=== PATIENT | male | born 1950 | race Caucasian/White ===

== ENCOUNTER → 2019-07-18 11:08 | Outpatient (BNVA) | payer MEDICARE, OTHER, SELFPAY | PROVIDERS: Family Provider Family Medicine; PCP Family Medicine; Referring Provider Family Medicine; Visit Provider Family Medicine | DX: I10 Essential (primary) hypertension (principal); N40.0 Benign prostatic hyperplasia without lower urinary tract symptoms; R73.9 Hyperglycemia, unspecified; S39.013A Strain of muscle, fascia and tendon of pelvis, initial encounter; X58.XXXA Exposure to other specified factors, initial encounter; Z68.30 Body mass index [BMI] 30.0-30.9, adult; Z71.89 Other specified counseling; X50.0XXA Overexertion from strenuous movement or load, initial encounter; Z12.5 Encounter for screening for malignant neoplasm of prostate | CPT/HCPCS: 80053; 83036; 85025; G0103 ==

== ENCOUNTER 2019-09-20 01:43 | Emergency (ER) | payer MEDICARE, OTHER, SELFPAY ==
[2019-09-20 01:46] VITALS: BP 156/86; PULSE 88; RESP 14; O2SAT 95; BMI 28.7
--- NOTE | 2019-09-20 02:03 | ED_ITS ---
HPI - Back Pain/Injury General: Chief Complaint: Back Pain/Injury Stated Complaint: BACK PAIN Time Seen by Provider: 09/20/19 01:55 Source: patient Mode of arrival: ambulatory Limitations: no limitations History of Present Illness: HPI Narrative: Patient comes in with some severe back pain that started at home this evening. Patient states he has been having some back pain for the last couple months due to assisting his with ADLs. Patient states tonight he had some low back pain that radiating into his right hip and was unable to control the pain at home. Patient took a half a tablet of hydrocodone and had minimal relief from pain. After the ambulance arrived at his home and he has been medicated with fentanyl he has had relief of his discomfort. Patient appears well. Patient appears in no acute distress. Patient denies any fever blood in the stool or any other symptoms MD elicited complaint: back pain Review of Systems General: Reports: 10 or more systems reviewed and unremarkable except in HPI and below Musc: Reports: back pain ON LICENSE OF [facility] ED PFSH: Medical History (Updated 09/20/19 @ 02:03 by TAMRA Jon) Hypertension Social History Smoking and tobacco status: never smoked Alcohol intake: never Physical Exam Const: COMMON NORMALS: no acute distress and patient oriented x3 GENERAL APPEARANCE: cooperative HENMT: COMMON NORMALS: normocephalic and Normal external nose present HEAD & SCALP: normal to inspection and normocephalic NOSE: Normal external nose present MOUTH: Normal oral and palatal mucosa present Eye: GENERAL EYE: appearance normal, both eyes and all related structures Neck/C-Spine: COMMON NORMALS: full ROM Chest: COMMONS NORMALS: normal inspection of the chest Resp: COMMON NORMALS: normal respiratory effort EFFORT & INSPECTION: Yes a ble to speak in complete sentences Cardio: COMMON NORMALS: regular rate and regular rhythm RATE: regular rate RHYTHM: regular rhythm GI: COMMON NORMALS: non-tender : COMMON NORMALS: Yes no CVA tenderness BLADDER/KIDNEY EXAM: Yes no CVA tenderness Back/Pelvis: COMMON NORMALS: no CVA tenderness and thoracic and lumbar spine normal to inspection LUMBAR SPINE/LOWER BACK: Yes paraspinal muscle tenderness Lumbar paraspinal muscle tenderness: right and Yes straight leg raise negative bilaterally Extremity: COMMON NORMALS: normal to inspection Neuro: COMMON NORMALS: patient oriented x3 and moves all extremities Psych: COMMON NORMALS: mental status grossly normal and cooperative Skin: COMMON NORMALS: no rashes or lesions noted GENERAL SKIN EXAM: no rashes or lesions noted Course Vital Signs: Vital signs: Vital Signs Pulse Rate 88 09/20/19 01:46 Respiratory Rate 14 09/20/19 01:46 Blood Pressure 156/86 09/20/19 01:46 Pulse Oximetry 95 09/20/19 01:46 MDM - Back Pain/Injury MDM Narrative: Medical decision making narrative: 69-year-old male patient comes in with low back pain radiating into his right buttocks. Patient received fentanyl in route to the ER and had had significant relief of pain. On exam patient had no vertebral point tenderness. Patient did have muscle spasm in the right lower back and some muscle tenderness. Vital signs are normal. Differential diagnosis includes but not limited to intervertebral disc disease, facet arthropathy, muscle spasm, sciatica. Reviewed exam with patient recommended treatment for sciatica. Patient reported understanding of care plan and need for follow-up or return to the ER for new concerns. Discharge Plan Discharge Patient Disposition: Home Clinical Impression: Sciatica Qualifiers: Laterality: right Qualified Code(s): M54.31 - Sciatica, right side Condition: Stable Prescriptions: New tizanidine 4 mg tablet 4 mg PO Q8H PRN (Reason: muscle spasticity) Qty: 14 RF: 0 diclofenac sodium 75 mg tablet,delayed release (DR/EC) 75 mg PO BID Qty: 20 RF: 0 No Action lisinopril 20 mg tablet 20 mg PO DAILY 90 Days Qty: 90 RF: 3 Discharge Orders: Discharge Order (Routine); Ordered 09/20/19 Ordered By: Audi Guerra Referrals: Sandra Abla MD [Primary Care Provider] - Discharge Diet: Usual diet Activity Restrictions/Additional Instructions: Drink plenty of water. Activity as tolerated. Gentle range of motion and stretching exercises. Follow-up with primary care or healthcare network consultant for further treatment. Return to the emergency department for new concerns. Coding Level of Care Code ED Television Announcer for Jordan Lucero
[2019-09-20] MEDS: ketorolac 30 mg/mL INJ 15 MG IVP (02:04)
[2019-09-20] MEDS: orphenadrine 30 mg/mL Inj 2 mL 60 MG IVP (02:06)
[2019-09-20 02:08] VITALS: BP 138/90; PULSE 68; RESP 16; O2SAT 95
== END 2019-09-20 02:26 | disposition home or self-care (01) ==
PROVIDERS: Emergency Provider Nurse Practitioner Family; PCP Family Medicine
DX: M54.31 Sciatica, right side (principal); I10 Essential (primary) hypertension
CPT/HCPCS: 12345; 96374; 96375; 99282; 99283; J1885; J2360

== ENCOUNTER → 2020-02-04 14:37 | Outpatient (BNVA) | payer MEDICARE, OTHER, SELFPAY | PROVIDERS: PCP Family Medicine; Visit Provider Family Medicine | DX: I10 Essential (primary) hypertension (principal); R97.20 Elevated prostate specific antigen [PSA]; F51.02 Adjustment insomnia; N52.9 Male erectile dysfunction, unspecified | CPT/HCPCS: 80048; G0103 ==

== ENCOUNTER 2020-02-20 21:00 | Inpatient (IN) | payer MEDICARE, OTHER, SELFPAY ==
--- NOTE | 2020-02-20 21:09 | ED_ITS ---
Documented by User: Wagner Bonilla MD 02/23/20 20:52 HPI - Abdominal Pain General: Chief Complaint: Abdominal Pain Stated Complaint: abd pain Time Seen by Provider: 02/20/20 21:04 History of Present Illness: HPI narrative: The patient is a 69-year-old male who comes to the ER complaining of upper abdominal pain for the past 5 days. It has come and gone however now it is constant and severe. He denies any abdominal surgeries or medical problems. Denies alcohol intake or gallbladder stones or pancreatitis history. He says about a week ago he was started on Lasix for peripheral edema which has improved however he has not had a normal bowel movement since. This morning at 2 AM he had a liquidy bowel movement. He does not feel like he has to defecate. denies urinary problems MD elicited complaint: abdominal pain Pertinent past history: none Pain Consistency: constant Location: Epigastric Severity: severe Quality: sharp Exacerbating factors: nothing Relieving factors: nothing Associated Symptoms: Reports no associated symptoms and change in bowel habits; Denies nausea and vomiting Review of Systems General: Reports: 10 or more systems reviewed and unremarkable except in HPI and below Const: Denies: fatigue Eyes: Denies: change in vision, blurry vision or eye redness ENMT: Denies: throat pain, swelling of lips/tongue, ear or mastoid pain or nasal congestion Card: Denies: chest pain, palpitations, irregular heart rhythm, edema, dyspnea on exertion or orthopnea Resp: Denies: dyspnea, productive cough or non-productive cough GI: Reports: abdominal pain and change in bowel habits; Denies: nausea or vomiting : Denies: flank pain, urinary frequency or urinary urgency Musc: Denies: neck pain, back pain, extremity pain, joint pain, joint redness, limited range of motion or muscle weakness Skin/Breast: Denies: rash, pruritus, erythema, skin pain or skin tenderness Neuro: Denies: headache(s), numbness in extremities, weakness in extremities, sensory changes, difficulty walking, dizziness, confusion or Slurred speech present Psych: Denies: anxiety or depression Endo: Denies: polyuria All/Imm: Denies: urticaria, throat swelling or tongue swelling PFSH ED PFSH: Medical History Arthritis History of cataract History of stroke Hypertension Incomplete tear of left rotator cuff Surgical History History of arthroscopic surgery of shoulder History of femoral hernia repair History of vasectomy Family History Other No significant family history Social History (Updated 02/21/20 @ 02:31 by Benny Damon MD) Smoking and tobacco status: never smoked Alcohol intake: never Substance/Drug Use: never Lives independently: Yes Marital status: Physical Exam Const: COMMON NORMALS: no acute distress, average body habitus, patient oriented x3, no limitations, healthy appearing, alert and well nourished GENERAL APPEARANCE: cooperative, comfortable, well kempt and well developed ORIENTATION/CONSCIOUSNESS: Yes awake, Yes oriented to person, Yes oriented to place and Yes oriented to time HENMT: COMMON NORMALS: normocephalic, external ears normal and Normal external nose present HEAD & SCALP: normal to inspection and normocephalic NOSE: Normal external nose present EXTERNAL EAR: Yes external ears normal MOUTH: Normal oral and palatal mucosa present THROAT: posterior oropharynx normal Eye: COMMON NORMALS: Equal, round and reactive pupils present and EOMs intact bilaterally GENERAL EYE: appearance normal, both eyes and all related structures PUPIL: Yes Equal, round and reactive pupils present Neck/C-Spine: COMMON NORMALS: full ROM, no lymphadenopathy, no meningeal signs and no JVD GENERAL: Yes normal visual inspection Lymph: LYMPHATIC: no lymphadenopathy noted Chest: COMMONS NORMALS: normal inspection of the chest and normal palpation of entire chest wall Resp: COMMON NORMALS: normal respiratory effort, No retractions, No use of accessory muscles, clear to auscultation bilaterally and percussion normal EFFORT & INSPECTION: Yes able to speak in complete sentences AUSCULTATION: clear to auscultation bilaterally PERCUSSION: percussion normal Cardio: COMMON NORMALS: no JVD, regular rate, regular rhythm, S1 normal heart sound present, S2 normal heart sound present and Peripheral pulses 2+ throughout RATE: regular rate RHYTHM: regular rhythm HEART SOUNDS: S1 normal heart sound present and S2 normal heart sound present PERIPHERAL PULSES: Peripheral pulses 2+ throughout GI: COMMON NORMALS: no masses INSPECTION: Yes normal to inspection OTHER: Severe epigastric abdominal tenderness. No rebound tenderness. Belly soft. GI image (male): 1. Severe abdominal tenderness : COMMON NORMALS: Yes no CVA tenderness BLADDER/KIDNEY EXAM: Yes no CVA tenderness Back/Pelvis: COMMON NORMALS: no CVA tenderness, thoracic and lumbar spine normal to inspection, no thoracic nor lumbar tenderness and thoraco-lumbar ROM normal Extremity: COMMON NORMALS: normal to inspection, full ROM, capillary refill normal, no joint enlargement and no pedal edema GENERAL: Yes normal exam except as noted Neuro: COMMON NORMALS: patient oriented x3, CN's II-XII intact bilaterally, moves all extremities, no focal motor deficits, no sensory deficits noted and gait normal SENSORIUM/ORIENTATION: Yes alert, Yes oriented to person, Yes oriented to place and Yes oriented to time MENINGEAL SIGNS: Yes no meningeal signs Psych: COMMON NORMALS: mental status grossly normal, Normal thought process present, cooperative, normal affect and speech normal APPEARANCE: Yes well kempt ATTITUDE: Yes calm SPEECH: Yes normal speech THOUGHT PROCESS: Normal thought process present Skin: COMMON NORMALS: no rashes or lesions noted GENERAL SKIN EXAM: no rashes or lesions noted Course Vital Signs: Vital signs: Vital Signs Temperature 98.5 F 02/23/20 11:33 Pulse Rate 73 02/23/20 11:33 Respiratory Rate 18 02/23/20 11:33 Blood Pressure 129/83 02/23/20 11:33 Pulse Oximetry 91 02/23/20 11:33 MDM - Abdominal Pain Lab Data: Labs: Lab Results 02/20/20 02/20/20 02/20/20 Range/Units 21:06 21:06 21:37 WBC 14.9 H (4.0-10.0) 10^3/ uL RBC 5.14 (4.1-5.3) 10^6/u L Hgb 16.7 H (11.7-16.6) g/dL Hct 50.0 (42.0-52.0) % MCV 97.3 H (80-94) fL MCH 32.5 (28.0-34.0) pg MCHC 33.4 (30.0-36.0) g/dL RDW 12.9 (12.1-15.1) % Plt Count 197 (130-400) 10^3/c mm MPV 10.4 (7.4-10.4) fL Neut % (Auto) 89.0 % Lymph % (Auto) 5.7 % [place] % (Auto) 3.9 % Eos % (Auto) 0.5 % Baso % (Auto) 0.3 % Neut # (Auto) 13.23 H (1.8-7.7) 10^3/u L Lymph # (Auto) 0.9 (0.8-4.8) 10^3/u L [place] # (Auto) 0.6 (0.2-0.9) 10^3/u L Eos # (Auto) 0.1 (0.0-0.8) 10^3/u L Baso # (Auto) 0.1 (0.0-0.1) 10^3/u L Nucleated RBC % (a uto) 0 % Nucleated RBCs # 0.0 /100WBC Sodium 137 (136-145) mmol/L Potassium 3.9 (3.5-5.1) mmol/L Chloride 99 (98-107) mmol/L Carbon Dioxide 29 (22-29) mmol/L Anion Gap 12.9 (5-19) BUN 30 H (8-23) mg/dL Creatinine 1.7 H (0.7-1.2) mg/dL GFR Calculation 40.0 L (90-130) mL/min Glucose 116 H (65-115) mg/dL Calculated Osmolal ity 291 (285-295) mOsm/k g Lactate 1.1 (0.5-2.2) mmol/L Calcium 10.1 (8.5-10.5) mg/dL Total Bilirubin 2.1 H (0.15-1.2) mg/dL AST 24 (0-40) U/L ALT 27 (0-41) U/L Alkaline Phosphata se 108 (40-130) IU/L NT-Pro-B Natriuret Pep 235 H (0-125) pg/mL Total Protein 7.3 (6.6-8.7) g/dL Albumin 3.9 (3.5-5.2) g/dL Globulin 3.4 (1.3-4.6) g/dL Lipase 13 (13-60) U/L Urine Color (Yellow) Urine Appearance (CLEAR) Urine pH (5-7) Ur Specific Gravit y (1.005-1.030) Urine Protein (Negative) Urine Glucose (UA) (Normal) Urine Ketones (Negative) Urine Blood (Negative) Urine Nitrate (Negative) Urine Bilirubin (Negative) Urine Urobilinogen (Negative) mg/dL Ur Leukocyte Arlene ase (Negative) Urine RBC (0-2) /hpf Urine WBC (0-5) /hpf Ur Squamous Epith Cells (0-5) /hpf Amorphous Sediment Urine Bacteria (NONE) /hpf Urine Mucus /hpf Ethyl Alcohol < 10 (0-10) mg/dL 02/20/20 02/21/20 Range/Units 21:37 02:36 WBC (4.0-10.0) 10^3/ uL RBC (4.1-5.3) 10^6/u L Hgb (11.7-16.6) g/dL Hct (42.0-52.0) % MCV (80-94) fL MCH (28.0-34.0) pg MCHC (30.0-36.0) g/dL RDW (12.1-15.1) % Plt Count (130-400) 10^3/c mm MPV (7.4-10.4) fL Neut % (Auto) % Lymph % (Auto) % [place] % (Auto) % Eos % (Auto) % Baso % (Auto) % Neut # (Auto) (1.8-7.7) 10^3/u L Lymph # (Auto) (0.8-4.8) 10^3/u L [place] # (Auto) (0.2-0.9) 10^3/u L Eos # (Auto) (0.0-0.8) 10^3/u L Baso # (Auto) (0.0-0.1) 10^3/u L Nucleated RBC % (a uto) % Nucleated RBCs # /100WBC Sodium (136-145) mmol/L Potassium (3.5-5.1) mmol/L Chloride (98-107) mmol/L Carbon Dioxide (22-29) mmol/L Anion Gap (5-19) BUN (8-23) mg/dL Creatinine (0.7-1.2) mg/dL GFR Calculation (90-130) mL/min Glucose (65-115) mg/dL Calculated Osmolal ity (285-295) mOsm/k g Lactate 1.3 (0.5-2.2) mmol/L Calcium (8.5-10.5) mg/dL Total Bilirubin (0.15-1.2) mg/dL AST (0-40) U/L ALT (0-41) U/L Alkaline Phosphata se (40-130) IU/L NT-Pro-B Natriuret Pep (0-125) pg/mL Total Protein (6.6-8.7) g/dL Albumin (3.5-5.2) g/dL Globulin (1.3-4.6) g/dL Lipase (13-60) U/L Urine Color Dark yellow (Yellow) Urine Appearance Hazy A (CLEAR) Urine pH 5.0 (5-7) Ur Specific Gravit y 1.015 (1.005-1.030) Urine Protein 1+ H (Negative) Urine Glucose (UA) Norm (Normal) Urine Ketones Negative (Negative) Urine Blood Neg (Negative) Urine Nitrate Negative (Negative) Urine Bilirubin Neg (Negative) Urine Urobilinogen Norm (Negative) mg/dL Ur Leukocyte Arlene ase 1+ H (Negative) Urine RBC None (0-2) /hpf Urine WBC 55-80 H (0-5) /hpf Ur Squamous Epith Cells 0-4 H (0-5) /hpf Amorphous Sediment Not Reportable Urine Bacteria 2+ H (NONE) /hpf Urine Mucus Trace /hpf Ethyl Alcohol (0-10) mg/dL Discharge Plan Discharge Patient Disposition: Admitted As Inpatient Admit Provider: Benny Damon Clinical Impression: Small bowel obstruction, Cystitis Condition: Stable Discharge Diet: Low Salt Discharge Activity: Resume usual activity Coding Level of Care Code ED [employer] for Chg Fwd Exam Comprehensive Documented by User: Claudia Sanchez MD 02/21/20 01:05 HPI - Abdominal Pain General: Chief Complaint: Abdominal Pain Stated Complaint: abd pain Time Seen by Provider: 02/20/20 21:04 [facility] ED PFSH: Medical History Arthritis History of cataract History of stroke Hypertension Incomplete tear of left rotator cuff Surgical History History of arthroscopic surgery of shoulder History of femoral hernia repair History of vasectomy Family History Other No significant family history Social History (Updated 02/21/20 @ 02:31 by Benny Damon MD) Smoking and tobacco status: never smoked Alcohol intake: never Substance/Drug Use: never Lives independently: Yes Marital status: Physical Exam GI: GI image (male): 1. Severe abdominal tenderness Course Vital Signs: Vital signs: Vital Signs Temperature 98.5 F 02/23/20 11:33 Pulse Rate 73 02/23/20 11:33 Respiratory Rate 18 02/23/20 11:33 Blood Pressure 129/83 02/23/20 11:33 Pulse Oximetry 91 02/23/20 11:33 MDM - Abdominal Pain MDM Narrative: Medical decision making narrative: Patient presents here with a partial small bowel obstruction along with a urinary tract infection. I spoke to the hospitalist will admit. Will place an NG tube and patient given IV antibiotics here. Patient is not septic and blood pressures been stable. Lab Data: Labs: Lab Results 02/20/20 02/20/20 02/20/20 Range/Units 21:06 21:06 21:37 WBC 14.9 H (4.0-10.0) 10^3/ uL RBC 5.14 (4.1-5.3) 10^6/u L Hgb 16.7 H (11.7-16.6) g/dL Hct 50.0 (42.0-52.0) % MCV 97.3 H (80-94) fL MCH 32.5 (28.0-34.0) pg MCHC 33.4 (30.0-36.0) g/dL RDW 12.9 (12.1-15.1) % Plt Count 197 (130-400) 10^3/c mm MPV 10.4 (7.4-10.4) fL Neut % (Auto) 89.0 % Lymph % (Auto) 5.7 % [place] % (Auto) 3.9 % Eos % (Auto) 0.5 % Baso % (Auto) 0.3 % Neut # (Auto) 13.23 H (1.8-7.7) 10^3/u L Lymph # (Auto) 0.9 (0.8-4.8) 10^3/u L [place] # (Auto) 0.6 (0.2-0.9) 10^3/u L Eos # (Auto) 0.1 (0.0-0.8) 10^3/u L Baso # (Auto) 0.1 (0.0-0.1) 10^3/u L Nucleated RBC % (a uto) 0 % Nucleated RBCs # 0.0 /100WBC Sodium 137 (136-145) mmol/L Potassium 3.9 (3.5-5.1) mmol/L Chloride 99 (98-107) mmol/L Carbon Dioxide 29 (22-29) mmol/L Anion Gap 12.9 (5-19) BUN 30 H (8-23) mg/dL Creatinine 1.7 H (0.7-1.2) mg/dL GFR Calculation 40.0 L (90-130) mL/min Glucose 116 H (65-115) mg/dL Calculated Osmolal ity 291 (285-295) mOsm/k g Lactate 1.1 (0.5-2.2) mmol/L Calcium 10.1 (8.5-10.5) mg/dL Total Bilirubin 2.1 H (0.15-1.2) mg/dL AST 24 (0-40) U/L ALT 27 (0-41) U/L Alkaline Phosphata se 108 (40-130) IU/L NT-Pro-B Natriuret Pep 235 H (0-125) pg/mL Total Protein 7.3 (6.6-8.7) g/dL Albumin 3.9 (3.5-5.2) g/dL Globulin 3.4 (1.3-4.6) g/dL Lipase 13 (13-60) U/L Urine Color (Yellow) Urine Appearance (CLEAR) Urine pH (5-7) Ur Specific Gravit y (1.005-1.030) Urine Protein (Negative) Urine Glucose (UA) (Normal) Urine Ketones (Negative) Urine Blood (Negative) Urine Nitrate (Negative) Urine Bilirubin (Negative) Urine Urobilinogen (Negative) mg/dL Ur Leukocyte Arlene ase (Negative) Urine RBC (0-2) /hpf Urine WBC (0-5) /hpf Ur Squamous Epith Cells (0-5) /hpf Amorphous Sediment Urine Bacteria (NONE) /hpf Urine Mucus /hpf Ethyl Alcohol < 10 (0-10) mg/dL 02/20/20 02/21/20 Range/Units 21:37 02:36 WBC (4.0-10.0) 10^3/ uL RBC (4.1-5.3) 10^6/u L Hgb (11.7-16.6) g/dL Hct (42.0-52.0) % MCV (80-94) fL MCH (28.0-34.0) pg MCHC (30.0-36.0) g/dL RDW (12.1-15.1) % Plt Count (130-400) 10^3/c mm MPV (7.4-10.4) fL Neut % (Auto) % Lymph % (Auto) % [place] % (Auto) % Eos % (Auto) % Baso % (Auto) % Neut # (Auto) (1.8-7.7) 10^3/u L Lymph # (Auto) (0.8-4.8) 10^3/u L [place] # (Auto) (0.2-0.9) 10^3/u L Eos # (Auto) (0.0-0.8) 10^3/u L Baso # (Auto) (0.0-0.1) 10^3/u L Nucleated RBC % (a uto) % Nucleated RBCs # /100WBC Sodium (136-145) mmol/L Potassium (3.5-5.1) mmol/L Chloride (98-107) mmol/L Carbon Dioxide (22-29) mmol/L Anion Gap (5-19) BUN (8-23) mg/dL Creatinine (0.7-1.2) mg/dL GFR Calculation (90-130) mL/min Glucose (65-115) mg/dL Calculated Osmolal ity (285-295) mOsm/k g Lactate 1.3 (0.5-2.2) mmol/L Calcium (8.5-10.5) mg/dL Total Bilirubin (0.15-1.2) mg/dL AST (0-40) U/L ALT (0-41) U/L Alkaline Phosphata se (40-130) IU/L NT-Pro-B Natriuret Pep (0-125) pg/mL Total Protein (6.6-8.7) g/dL Albumin (3.5-5.2) g/dL Globulin (1.3-4.6) g/dL Lipase (13-60) U/L Urine Color Dark yellow (Yellow) Urine Appearance Hazy A (CLEAR) Urine pH 5.0 (5-7) Ur Specific Gravit y 1.015 (1.005-1.030) Urine Protein 1+ H (Negative) Urine Glucose (UA) Norm (Normal) Urine Ketones Negative (Negative) Urine Blood Neg (Negative) Urine Nitrate Negative (Negative) Urine Bilirubin Neg (Negative) Urine Urobilinogen Norm (Negative) mg/dL Ur Leukocyte Arlene ase 1+ H (Negative) Urine RBC None (0-2) /hpf Urine WBC 55-80 H (0-5) /hpf Ur Squamous Epith Cells 0-4 H (0-5) /hpf Amorphous Sediment Not Reportable Urine Bacteria 2+ H (NONE) /hpf Urine Mucus Trace /hpf Ethyl Alcohol (0-10) mg/dL Imaging Data ^: CT Abd/Pel: Attestation: I personally reviewed and interpreted this imaging study as follows: Radiologist's impression: [address] [address] [address] Scan Report Signed Patient: Elodia Hagen Unit #: [id number] : 1950 Age/Sex: 69 / M ADM Date: 02/20/20 Loc: ER Room/Bed: Attending Dr: Ordering Provider/Ordering MD: Claudia Sanchez MD Date of Service: 02/20/20 Procedure(s): CT abdomen pelvis w con* [id number] Accession Number(s): [id number] Report Number: [id number] PROCEDURE INFORMATION: Exam: CT Abdomen And Pelvis With Contrast Exam date and time: 02/20/2020 11:38 PM Age: 69 years old Clinical indication: Abdominal pain; Generalized; Prior surgery; Surgery type: Hernia; Patient HX: Diffuse abd pain x 3 days TECHNIQUE: Imaging protocol: Computed tomography of the abdomen and pelvis with intravenous contrast. Radiation optimization: All CT scans at this facility use at least one of these dose optimization techniques: automated exposure control; mA and/or kV adjustment per patient size (includes targeted exams where dose is matched to clinical indication); or iterative reconstruction. Contrast material: VISI 320; Contrast volume: 95 ml; Contrast route: INTRAVENOUS (IV); COMPARISON: No relevant prior studies available. RADIATION DOSE METRICS: Total DLP (mGy-cm): 725.54 FINDINGS: Lungs: There is some partial atelectasis at the lung bases. Mediastinal space: There is fluid in the distal esophagus representing some gastroesophageal reflux. Liver: There is no focal abnormality within the liver. Gallbladder and bile ducts: Normal. No calcified stones. No ductal dilation. Pancreas: The pancreas is normal. Spleen: The spleen is normal. Adrenal glands: The adrenal glands are normal. Kidneys and ureters: There are multiple right renal collecting system calcifications. There is a very large extrarenal pelvis on the left. This suggests possibility of left UPJ stenosis. Stomach and bowel: There is fluid distention of the fundus of the stomach. The body and antrum of the stomach are non distended. Findings could represent stricture or sclerosis of the distal stomach. Further evaluation such as with upper GI series is suggested for further evaluation when the patient's condition permits. There is diverticulosis of the distal colon but no evidence of diverticulitis. There is moderate fluid distention of small bowel loops throughout the upper mid abdomen fluid is seen throughout the distal bowel as well and the findings could represent some nonspecific enteritis. The distal bowel is less dilated than the proximal bowel suggesting some partial obstruction although exact point of transition is not identified. Appendix: Not identified Intraperitoneal space: Unremarkable. No free air. No significant fluid collection. Vasculature: Unremarkable. No abdominal aortic aneurysm. Lymph nodes: Unremarkable. No enlarged lymph nodes. Urinary bladder: There is moderate thickening of the urinary bladder wall which could represent urinary tract infection, or muscular hypertrophy from chronic outlet obstruction. Reproductive: Unremarkable as visualized. Bones/joints: There is narrowing of the L5-S1 disc space with mild grade 1 anterolisthesis and bilateral L5 spondylolysis. There is mild chronic appearing wedging at T12. Soft tissues: Unremarkable. CT/CT abdomen pelvis w con* [id number] IMPRESSION: 1. Findings worrisome for partial small bowel obstruction. 2. Nonspecific enteritis. 3. Abnormal appearance of the distal stomach. Further evaluation is suggested 4. Right nephrolithiasis. 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 Radiation Dose CTDIVOL = (mGy): DLP = 725.54 (mGy-cm) Discharge Plan Discharge Patient Disposition: Admitted As Inpatient Admit Provider: Benny Damon Clinical Impression: Small bowel obstruction, Cystitis Condition: Stable Discharge Diet: Low Salt Discharge Activity: Resume usual activity Coding Level of Care Code ED [employer] for Chg Fwd Exam Comprehensive
[2020-02-20 21:10] VITALS: BP 104/71; PULSE 87; RESP 18; TEMP 36.8; O2SAT 94; BMI 29.2
[2020-02-20 21:29] LABS: Basophils # 0.1 10^3/uL (0.0-0.1); Basophils % 0.3 %; Eosinophils # 0.1 10^3/uL (0.0-0.8); Eosinophils % 0.5 %; Hemoglobin 16.7 g/dL (11.7-16.6); Lymphocytes # 0.9 10^3/uL (0.8-4.8); Lymphocytes % 5.7 %; Mean Corpuscular HGB Conc 33.4 g/dL (30.0-36.0); Mean Corpuscular Hemoglobin 32.5 pg (28.0-34.0); Mean Corpuscular Volume 97.3 fL (80-94); Mean Platelet Volume 10.4 fL (7.4-10.4); Monocytes # 0.6 10^3/uL (0.2-0.9); Monocytes % 3.9 %; Neutrophils # 13.23 10^3/uL (1.8-7.7); Nucleated Red Blood Cells % 0 %; Platelet Count 197 10^3/cmm (130-400); Red Blood Count 5.14 10^6/uL (4.1-5.3); Red Cell Distribution Width 12.9 % (12.1-15.1); White Blood Count 14.9 10^3/uL (4.0-10.0)
[2020-02-20] MEDS: sodium chloride 0.9% 500 ML IV ×2 (21:38→23:57)
[2020-02-20 21:40] VITALS: BP 104/71; PULSE 88; RESP 12; O2SAT 93
[2020-02-20 21:52] LABS: Alanine Aminotransferase 27 U/L (0-41); Albumin Level 3.9 g/dL (3.5-5.2); Alkaline Phosphatase 108 IU/L (40-130); Anion Gap 12.9 (5-19); Aspartate Amino Transferase 24 U/L (0-40); Blood Urea Nitrogen 30 mg/dL (8-23); Calcium 10.1 mg/dL (8.5-10.5); Carbon Dioxide 29 mmol/L (22-29); Chloride 99 mmol/L (98-107); Globulin 3.4 g/dL (1.3-4.6); Glucose 116 mg/dL (65-115); Lipase 13 U/L (13-60); NT Pro B Type Natriuretic Pept 235 pg/mL (0-125); Osmolality Calculated 291 mOsm/kg (285-295); Potassium 3.9 mmol/L (3.5-5.1); Sodium 137 mmol/L (136-145); Total Bilirubin 2.1 mg/dL (0.15-1.2); Total Protein 7.3 g/dL (6.6-8.7)
[2020-02-20 21:55] LABS: Alcohol Level < 10 mg/dL (0-10)
[2020-02-20 22:23] LABS: Lactate (Lactic Acid level) 1.1 mmol/L (0.5-2.2)
[2020-02-20 23:19] LABS: Specific Gravity, Urine 1.015 (1.005-1.030); Urine Appearance Hazy (CLEAR); Urine Color Dark Yellow (Yellow)
[2020-02-20 23:20] LABS: Add Urine Microscopic? YES; Bilirubin Urine Neg (Negative); Blood Urine Neg (Negative); Glucose Urine UA Norm (Normal); Ketones Urine Negative (Negative); Leukocyte Esterase Urine 1+ (Negative); Nitrate Urine Negative (Negative); Protein Urine 1+ (Negative); Squamous Epithelial Cell Urine 0-4 /hpf (0-5); Urobilinogen Urine Norm (Negative); WBC Urine 55-80 /hpf (0-5)
[2020-02-20 23:21] LABS: Add Urine Culture? Yes; Bacteria Urine 2+ /hpf; Mucus Urine TRACE /hpf
[2020-02-20 23:30] VITALS: BP 92/62; PULSE 75; RESP 12; O2SAT 95
--- NOTE | 2020-02-20 23:36 | CTR_ITS ---
PROCEDURE INFORMATION: Exam: CT Abdomen And Pelvis With Contrast Exam date and time: 02/20/2020 11:38 PM Age: 69 years old Clinical indication: Abdominal pain; Generalized; Prior surgery; Surgery type: Hernia; Patient HX: Diffuse abd pain x 3 days TECHNIQUE: Imaging protocol: Computed tomography of the abdomen and pelvis with intravenous contrast. Radiation optimization: All CT scans at this facility use at least one of these dose optimization techniques: automated exposure control; mA and/or kV adjustment per patient size (includes targeted exams where dose is matched to clinical indication); or iterative reconstruction. Contrast material: VISI 320; Contrast volume: 95 ml; Contrast route: INTRAVENOUS (IV); COMPARISON: No relevant prior studies available. RADIATION DOSE METRICS: Total DLP (mGy-cm): 725.54 FINDINGS: Lungs: There is some partial atelectasis at the lung bases. Mediastinal space: There is fluid in the distal esophagus representing some gastroesophageal reflux. Liver: There is no focal abnormality within the liver. Gallbladder and bile ducts: Normal. No calcified stones. No ductal dilation. Pancreas: The pancreas is normal. Spleen: The spleen is normal. Adrenal glands: The adrenal glands are normal. Kidneys and ureters: There are multiple right renal collecting system calcifications. There is a very large extrarenal pelvis on the left. This suggests possibility of left UPJ stenosis. Stomach and bowel: There is fluid distention of the fundus of the stomach. The body and antrum of the stomach are non distended. Findings could represent stricture or sclerosis of the distal stomach. Further evaluation such as with upper GI series is suggested for further evaluation when the patient's condition permits. There is diverticulosis of the distal colon but no evidence of diverticulitis. There is moderate fluid distention of small bowel loops throughout the upper mid abdomen fluid is seen throughout the distal bowel as well and the findings could represent some nonspecific enteritis. The distal bowel is less dilated than the proximal bowel suggesting some partial obstruction although exact point of transition is not identified. Appendix: Not identified Intraperitoneal space: Unremarkable. No free air. No significant fluid collection. Vasculature: Unremarkable. No abdominal aortic aneurysm. Lymph nodes: Unremarkable. No enlarged lymph nodes. Urinary bladder: There is moderate thickening of the urinary bladder wall which could represent urinary tract infection, or muscular hypertrophy from chronic outlet obstruction. Reproductive: Unremarkable as visualized. Bones/joints: There is narrowing of the L5-S1 disc space with mild grade 1 anterolisthesis and bilateral L5 spondylolysis. There is mild chronic appearing wedging at T12. Soft tissues: Unremarkable. CT/CT abdomen pelvis w con* [id number] IMPRESSION: 1. Findings worrisome for partial small bowel obstruction. 2. Nonspecific enteritis. 3. Abnormal appearance of the distal stomach. Further evaluation is suggested 4. Right nephrolithiasis. 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 Radiation Dose CTDIVOL = (mGy): DLP = 725.54 (mGy-cm)
[2020-02-21] VITALS (10 sets, daily range): BP systolic 97–136; BP diastolic 63–87; PULSE 69–94; RESP 12–24; TEMP 36.6–37.8; O2SAT 91–94
[2020-02-21] MEDS: piperacillin-tazobactam 3.375 GM in sodium chloride 0.9% (plus) 50 ML IV
[2020-02-21] MEDS: iodixanol 320 mg/mL 100mL Btl IV (00:08)
[2020-02-21] MEDS: LORazepam 2 mg/mL INJ 1 mL 1 MG IVP (01:29)
--- NOTE | 2020-02-21 02:26 | XR_ITS ---
WS: [id number] PORTABLE CHEST HISTORY: ng tube placement COMPARISON: 02/16/2008 Nasogastric tube is present with the tip extending into the upper abdomen. The distal extent is not i ncluded on this series. Bilateral lower lobe opacifications, LEFT greater than RIGHT. Probably due to atelectasis. Developing pneumonia on the LEFT should be considered clinically. No pleural effusion or pneumothorax. Cardiac size: Mildly enlarged cardiac silhouette. Mediastinum/Aorta: Normal mediastinum. No osseous abnormality seen. XR/XR chest 1V portable [id number] IMPRESSION: 1. Bilateral lower lobe opacifications most consistent with atelectasis. 2. Nasogastric tube noted with tip extending into the upper abdomen.
--- NOTE | 2020-02-21 02:28 | P.HP_ITS ---
Providers/Chief Complaint Admitting Physician: Benny Damon Primary Care Provider: Sandra Alba MD Chief Complaint: abd pain History of Present Illness Very pleasant 69-year-old gentleman with history of hypertension, generalized aches and pains for which he takes ibuprofen, history of CVA for which he takes 81 mg aspirin presented to ER with complaints of 5 days of abdominal pain. He says that he was having some lower extremity swelling, and also for his hypertension his primary care doctor prescribed a diuretic. He feels that that had dried him up somewhat and he became constipated. He was passing gas, but was also belching quite a bit. Lost his appetite. CT abdomen pelvis in ER with findings worrisome for partial small bowel obstruction. Nonspecific enteritis. With abnormal appearance of distal stomach, with recommendation for further evaluation. Right nephrolithiasis. Probable left UPJ stenosis. UA with positive leukocyte esterase, 55-80 WBC. 2+ bacteria. Leukocytosis 14.9, afebrile, without tachycardia or other signs to suggest sepsis. Creatinine 1.7 with normal baseline. BUN 30. T bili 2.1. BNP 235. Lipase normal. In ER he notes has had several bowel movements. Reports he is feeling little bit better. Currently still pain in the upper abdomen 06/23. Review of Systems Const: Denies: fever(s), chills, body aches or malaise Eyes: Denies: change in vision or eye redness ENMT: Denies: throat pain, oral sores or ear or mastoid pain Card: Denies: chest pain, edema (resolved), pre-syncope or dyspnea on exertion Resp: Denies: dyspnea, productive cough, change in phlegm color or hemoptysis GI: Reports: abdominal pain and nausea; Denies: vomiting, hematochezia or melena : Denies: flank pain, difficulty urinating, urinary frequency or hematuria Musc: Denies: back pain, joint swelling or joint redness Skin/Breast: Denies: rash, sores or new lesions Neuro: Denies: headache(s), numbness in extremities, weakness in extremities, dizziness, confusion or seizure-like activity Endo: Denies: polyuria or polydipsia Adilson/Lymph: Denies: easy bleeding or purpura All/Imm: Denies: urticaria, throat swelling or tongue swelling Medications/Allergies Home Medications Medication Instructions Recorded Confirmed Last Taken Type lisinopril 20 mg tablet 20 mg PO DAILY 90 Days #90 tab 06/22/19 02/04/20 Unknown Rx tizanidine 4 mg PO Q8H PRN #14 tab 09/20/19 02/04/20 Unknown Rx hydrochlorothiazide 12.5 mg tablet 12.5 mg PO DAILY #90 tab 02/04/20 02/04/20 Unknown Rx lorazepam 1 mg tablet 1 mg PO .bed time PRN #14 tab NS 02/04/20 02/04/20 Unknown Rx sildenafil 100 mg tablet 100 mg PO DAILY PRN #10 tab 02/04/20 02/04/20 Unknown Rx Allergies Allergy/AdvReac Type Severity Reaction Status Date / Time No Known Allergies Allergy Verified 02/04/20 08:29 PFSH Acute PFSH: Medical History Arthritis History of cataract History of stroke Hypertension Incomplete tear of left rotator cuff Surgical History History of arthroscopic surgery of shoulder History of femoral hernia repair History of vasectomy Family History Other No significant family history Social History (Updated 02/21/20 @ 02:31 by Benny Damon MD) Smoking and tobacco status: never smoked Alcohol intake: never Substance/Drug Use: never Lives independently: Yes Marital status: Vitals/I&O/Wt Last Vital Signs Temp 98.3 F 02/20/20 21:10 Pulse 80 02/21/20 01:38 Resp 12 02/21/20 01:38 BP 107/66 02/21/20 01:38 Pulse Ox 94 02/21/20 01:38 02/20/20 02/20/20 02/21/20 14:59 22:59 06:59 Intake Total 500 / 500 Balance 500 / 500 Weight last 48 hrs Weight 95.254 kg Physical Exam Narrative: EXAM NARRATIVE: is at bedside. Const: COMMON NORMALS: no acute distress and patient oriented x3 HENMT: COMMON NORMALS: oropharynx normal Neck/C-Spine: COMMON NORMALS: no JVD Resp: COMMON NORMALS: normal respiratory effort and clear to auscultation bilaterally AUSCULTATION: clear to auscultation bilaterally Cardio: COMMON NORMALS: no JVD, regular rhythm, S1 normal heart sound present, S2 normal heart sound present and No murmurs present (Cardio) RHYTHM: regular rhythm HEART SOUNDS: S1 normal heart sound present and S2 normal heart sound present GI: COMMON NORMALS: Normal to inspection, nondistended, normoactive bowel sounds present, Soft to palpation and non-tender PALPATION: Yes Soft to palpation and Yes Tenderness to palpation present (GI) (upper abdomen predominantly) Extremity: COMMON NORMALS: no joint enlargement and no pedal edema Neuro: COMMON NORMALS: patient oriented x3 and moves all extremities Skin: COMMON NORMALS: no rashes or lesions noted GENERAL SKIN EXAM: no rashes or lesions noted Data : 02/20/20 21:06 02/20/20 21:06 A&P Assessment and plan (1) Small bowel obstruction: Partial SBO. With abnormality in the stomach, possible stricture. Please see CT. Abdominal pain. He takes NSAIDs, and so gastroenteritis secondary to NSAID is not excluded, however, not sure whether this would contribute to stricture. He is a never smoker. For now will additionally evaluate with upper GI series. Trial of clear liquid diet. If symptoms persist, consider surgical evaluation. Possible endoscopy. Status: Acute (2) Enteritis: DC NSAIDs. PPI. Supportive care. Gentle IV hydration. Bowel rest with clear liquid diet. Status: Acute (3) Mucosal abnormality of stomach: As above. Status: Acute (4) Acute kidney injury: Creatinine 1.7. DC NSAIDs. Received IV fluid challenge. Reassess renal function. Hold lisinopril. Hold HCTZ. Possible UPJ stenosis would benefit from urologic evaluation at some point. Status: Acute (5) Nephrolithiasis: Right Status: Acute (6) Stenosis of ureteropelvic junction (UPJ): Multiple right renal collecting system calcifications. Large extrarenal pelvis on the left suggesting UPJ stenosis. Would benefit from urological evaluation. Status: Acute (7) UTI (urinary tract infection): Received Zosyn. For now we will give ceftriaxone. Follow urine culture. Status: Acute Attestations Medical Necessity Statement*: Place in observation. Coding Level of Care Code Acute Shared Services Representative for [facility] Diagnoses Small bowel obstruction K56.609 Enteritis K52.9 Mucosal abnormality of stomach K31.89 Acute kidney injury N17.9 Nephrolithiasis N20.0 Stenosis of ureteropelvic junction (UPJ) Q62.11 UTI (urinary tract infection) N39.0
[2020-02-21 02:58] LABS: Lactate (Lactic Acid level) 1.3 mmol/L (0.5-2.2)
--- NOTE | 2020-02-21 03:22 | FL_ITS ---
WS: [id number] Upper GI series with Gastrografin, 02/21/2020 Clinical Data: gastric antral stricture? Partial SBO Comparison: CT abdomen and pelvis, 02/20/2020 Fluoroscopy time: 2.4 minutes. Findings: There is retained fluid within the stomach. There was a nasogastric tube in position and in and the s tomach. The patient swallowed the barium flowed normally through the hypopharynx and esophagus. No hi atal hernia reflux, mass, polyp, erosion or ulcer could be seen. There was moderate gastroesophageal reflux. The stomach was not significantly dilated. No erosion, polyp, ulcer or gastric deformity coul d be seen. The duodenal bulb is well distended and free of ulcer. There was filling of the descending duodenum and imaging of the second part of the duodenum showed a extrinsic deformity of the superior aspect which could represent a duodenal polyp. The barium passed through this narrowing. The gallbla dder appeared to have contrast within from a CT abdomen and pelvis. FL/FL upper GI gastrografin [id number] Impression: 1. Moderate amount of fluid retained within the stomach. 2. Gastroesophageal reflux without hiatal hernia or erosion. 3. Negative for polyp, mass erosion or ulceration with stomach. 4. Normal duodenal bulb. 5. Possible polyp of the superior aspect of the midportion of the second part o f the duodenum.
[2020-02-21] MEDS: pantoprazole DR 40 mg Tablet PO (04:36)
[2020-02-21] MEDS: heparin 5,000 unit/mL INJ 1 mL 5000 UNIT SUBCUT ×2 (04:36→19:24)
[2020-02-21] MEDS: cefTRIAXone 1,000 MG in sodium chloride 0.9% (plus) 50 ML 100 MG IV (10:15)
--- NOTE | 2020-02-21 10:57 | PC.CHAP ---
Pastoral Care Encounter/Spiritual Assessment Type of Contact [] Declined radiation protection specialist visit [] Patient/Family/Request visit [] Outpatient visit [] Follow-up visit [] Physician referral [] Code/Alert [x] Routine visit [] Staff referral [] Actively dying [] Patient sleeping [] Family support [] [] Out of room [] Palliative care [] [x] Receiving care in room [] Pre-surgical visit [] Trauma [] Long length of stay [] ICU visit [] Other: Relational/Emotional Strength [] Patient feels connected with others/family/visitors/staff [x] Distress [] Loneliness/isolation [] Abandonment Spirituality of Patient [] Person of Chely [] Attends Buddhist of their [place] [] Believes in Prayer [] Reads Bible or Voodoo materials [] There are Spiritual issues to be addressed Soccer Ball Assembler Interventions [] Prayer [] Active listening [] Non-anxious presence [] Spiritual/emotional support [] Crisis/trauma care [] Spiritual counseling [] Bereavement support [] Provided bereavement packet [] Provided Bible/devotional materials [] Provided toy/stuffed animal, coloring book to patient or family member [] Provided Communion [] Anointing/[place] [] Salvation [] Completed spiritual assessment [] Other: Impact on Illness or Injury [] Angry [] Fearful [] Anxious [] Often cries [] Exhaustion [] Unable to work [] Unable to attend christian [] Unable to walk/stand [] Unable to read [] Unable to drive [] Unable to eat/drink [] Unable to sleep [] Unable to be with family [] Patient intubated [] Other: Summary in pain, negative attitude Time spent with patient 10 mins
--- NOTE | 2020-02-21 11:46 | PM.PN ---
Subjective Subjective: Interval history: He deny any nausea, vomiting, abdominal pain, has passed stool. FL upper GI gastrografin:Unremarkable. Has remained afebrile, other vitals and labs have been reviewed. Medications: Reviewed: Yes Vitals/I&O/Wt Last Vital Signs Temp 97.8 F 02/21/20 11:36 Pulse 79 02/21/20 11:36 Resp 18 02/21/20 11:36 BP 118/75 02/21/20 11:36 Pulse Ox 92 02/21/20 11:36 02/20/20 02/21/20 02/21/20 22:59 06:59 14:59 Intake Total 580 / 580 Balance 580 / 580 Weight last 48 hrs Weight 95.254 kg Physical Exam Const: COMMON NORMALS: patient oriented x3 HENMT: COMMON NORMALS: normocephalic and atraumatic HEAD & SCALP: normocephalic and atraumatic Eye: GENERAL EYE: appearance normal, both eyes and all related structures Chest: COMMONS NORMALS: normal inspection of the chest and normal palpation of entire chest wall CHEST: Yes Symmetrical chest wall rise Resp: COMMON NORMALS: normal respiratory effort, No retractions, No use of accessory muscles and clear to auscultation bilaterally EFFORT & INSPECTION: Yes symmetric chest movement AUSCULTATION: clear to auscultation bilaterally Cardio: COMMON NORMALS: regular rate, regular rhythm, S1 normal heart sound present, S2 normal heart sound present, No gallops present (Cardio), No murmurs present (Cardio), No rub (Cardio) and Peripheral pulses 2+ throughout RATE: regular rate RHYTHM: regular rhythm HEART SOUNDS: S1 normal heart sound present and S2 normal heart sound present PERIPHERAL PULSES: Peripheral pulses 2+ throughout GI: COMMON NORMALS: Normal to inspection, nondistended, normoactive bowel sounds present, Soft to palpation, non-tender, No hepatosplenomegaly present and no masses AUSCULTATION: Yes normoactive bowel sounds PALPATION: Yes Soft to palpation and Yes No hepatosplenomegaly present RECTAL EXAM: Yes deferred Extremity: COMMON NORMALS: no clubbing, cyanosis or edema and no pedal edema Neuro: COMMON NORMALS: patient oriented x3 Data : 02/20/20 21:06 02/20/20 21:06 A&P Assessment and plan (1) Small bowel obstruction: Partial SBO. With abnormality in the stomach, possible stricture. Please see CT. Abdominal pain. He takes NSAIDs, and so gastroenteritis secondary to NSAID is not excluded, however, not sure whether this would contribute to stricture. He is a never smoker. For now will additionally evaluate with upper GI series. Trial of clear liquid diet. If symptoms persist, consider surgical evaluation. Possible endoscopy. Status: Acute (2) Enteritis: DC NSAIDs. PPI. Supportive care. Gentle IV hydration. Bowel rest with clear liquid diet. Status: Acute (3) Mucosal abnormality of stomach: As above. Status: Acute (4) Acute kidney injury: Creatinine 1.7. DC NSAIDs. Received IV fluid challenge. Reassess renal function. Hold lisinopril. Hold HCTZ. Possible UPJ stenosis would benefit from urologic evaluation at some point. Status: Acute (5) Nephrolithiasis: Right Status: Acute (6) Stenosis of ureteropelvic junction (UPJ): Multiple right renal collecting system calcifications. Large extrarenal pelvis on the left suggesting UPJ stenosis. Would benefit from urological evaluation. Status: Acute (7) UTI (urinary tract infection): Received Zosyn. For now we will give ceftriaxone. Follow urine culture. 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
[2020-02-21] MEDS: diatrizoate meglumine 120 mL Sol PO ×2 (14:25→14:26)
[2020-02-22] MEDS: pantoprazole DR 40 mg Tablet PO (00:25)
[2020-02-22 03:57] VITALS: BP 129/86; PULSE 84; RESP 24; TEMP 37; O2SAT 91
[2020-02-22] MEDS: heparin 5,000 unit/mL INJ 1 mL 5000 UNIT SUBCUT ×3 (04:05→18:41)
[2020-02-22 07:04] VITALS: BP 119/74; PULSE 63; RESP 18; TEMP 36.3; O2SAT 93
[2020-02-22 07:52] LABS: Basophils % 0.4 %; Eosinophils # 0.1 10^3/uL (0.0-0.8); Eosinophils % 1.2 %; Hematocrit 49.7 % (42.0-52.0); Hemoglobin 16.5 g/dL (11.7-16.6); Lymphocytes # 1.2 10^3/uL (0.8-4.8); Lymphocytes % 10.8 %; Mean Corpuscular HGB Conc 33.2 g/dL (30.0-36.0); Mean Corpuscular Hemoglobin 32.2 pg (28.0-34.0); Mean Corpuscular Volume 96.9 fL (80-94); Mean Platelet Volume 10.7 fL (7.4-10.4); Monocytes # 0.7 10^3/uL (0.2-0.9); Neutrophils # 8.89 10^3/uL (1.8-7.7); Nucleated Red Blood Cells % 0 %; Platelet Count 223 10^3/cmm (130-400); Red Blood Count 5.13 10^6/uL (4.1-5.3); Red Cell Distribution Width 12.9 % (12.1-15.1)
[2020-02-22 08:26] LABS: Alanine Aminotransferase 25 U/L (0-41); Albumin Level 3.9 g/dL (3.5-5.2); Alkaline Phosphatase 117 IU/L (40-130); Blood Urea Nitrogen 41 mg/dL (8-23); Calcium 9.7 mg/dL (8.5-10.5); Carbon Dioxide 29 mmol/L (22-29); Chloride 102 mmol/L (98-107); Globulin 3.6 g/dL (1.3-4.6); Glomerular Filtration Rate 50.1 mL/min (90-130); Glucose 121 mg/dL (65-115); Osmolality Calculated 305 mOsm/kg (285-295); Sodium 142 mmol/L (136-145); Total Bilirubin 0.9 mg/dL (0.15-1.2); Total Protein 7.5 g/dL (6.6-8.7)
[2020-02-22 08:41] LABS: Anion Gap 14.8 (5-19); Aspartate Amino Transferase 28 U/L (0-40); Creatinine Clr Calc Pharmacy 57.8344; Potassium 3.8 mmol/L (3.5-5.1)
[2020-02-22] MEDS: sodium chloride 0.9% 500 ML IV (09:28)
--- NOTE | 2020-02-22 09:41 | P.PN_ITS ---
Subjective Subjective: Interval history: is complaining of multiple episodes of watery diarrhea.He deny any nausea, vomiting, abdominal pain. He has remained afbrile, other vitals and labs have been reviewed. Medications: Reviewed: Yes Vitals/I&O/Wt Last Vital Signs Temp 97.3 F L 02/22/20 07:04 Pulse 63 02/22/20 07:04 Resp 18 02/22/20 07:04 BP 119/74 02/22/20 07:04 Pulse Ox 93 02/22/20 07:04 02/21/20 02/22/20 02/22/20 22:59 06:59 14:59 Intake Total 600 / 650 240 / 240 Balance 600 / 650 240 / 240 Weight last 48 hrs Weight 95.254 kg Physical Exam Const: COMMON NORMALS: patient oriented x3 HENMT: COMMON NORMALS: normocephalic and atraumatic HEAD & SCALP: normocephalic and atraumatic Chest: CHEST: Yes Symmetrical chest wall rise Resp: COMMON NORMALS: normal respiratory effort, No retractions, No use of accessory muscles and clear to auscultation bilaterally EFFORT & INSPECTION: Yes symmetric chest movement AUSCULTATION: clear to auscultation bilaterally Cardio: COMMON NORMALS: regular rate, regular rhythm, S1 normal heart sound present, S2 normal heart sound present, No gallops present (Cardio), No murmurs present (Cardio), No rub (Cardio) and Peripheral pulses 2+ throughout RATE: regular rate RHYTHM: regular rhythm HEART SOUNDS: S1 normal heart sound present and S2 normal heart sound present PERIPHERAL PULSES: Peripheral pulses 2+ throughout GI: COMMON NORMALS: Normal to inspection, nondistended, normoactive bowel sounds present, Soft to palpation, non-tender, No hepatosplenomegaly present and no masses AUSCULTATION: Yes normoactive bowel sounds PALPATION: Yes Soft to palpation and Yes No hepatosplenomegaly present RECTAL EXAM: Yes deferred Extremity: COMMON NORMALS: no clubbing, cyanosis or edema and no pedal edema Neuro: COMMON NORMALS: patient oriented x3 Data : 02/22/20 07:19 02/22/20 07:19 A&P Assessment and plan (1) Acute gastroenteritis: Possible AGE: Complaining of Nausea,Vomiting and Diarrhea. Will encourage oral intake as well as continue with I.V fluids for now. Was empirically started on Cef on admission.will Dc Abxs Stool studies including C.Diff sent. Status: Acute (2) Small bowel obstruction: Admitted with possible Partial SBO. Currently having diarrhea,pass gas. N.G Tube removed. FL upper GI gastrografin:Unremarkable for any acute findings Tolerating CLD. Advance Diet as tolerated. Status: Acute (3) Enteritis: Status: Acute (4) Mucosal abnormality of stomach: As above. Status: Acute (5) Acute kidney injury: Admission SCR : 1.7 Current SCR: 1.4 DC NSAIDs. Continue : Received IV fluid challenge. Reassess renal function. Hold lisinopril. Hold HCTZ. Possible UPJ stenosis would benefit from urologic evaluation at some point. Status: Acute (6) Nephrolithiasis: Right Status: Acute (7) Stenosis of ureteropelvic junction (UPJ): Multiple right renal collecting system calcifications. Large extrarenal pelvis on the left suggesting UPJ stenosis. Would benefit from urological evaluation. Status: Acute (8) UTI (urinary tract infection): Received Zosyn. For now we will give ceftriaxone. Follow urine culture. Status: Acute Additional A&P Information DVT PPX: Heparin 500 SC Q8H Code Status :Full Code Disposition :Dc in am Attestations Medical Necessity Statement*: Patient needs to be in hospital for the manag ement of Gastroenteritis. Coding Level of Care Code Acute [place] Sewer for [facility] Fwd Exam Detailed Diagnoses Acute gastroenteritis K52.9 Small bowel obstruction K56.609 Enteritis K52.9 Mucosal abnormality of stomach K31.89 Acute kidney injury N17.9 Nephrolithiasis N20.0 Stenosis of ureteropelvic junction (UPJ) Q62.11 UTI (urinary tract infection) N39.0
[2020-02-22] MEDS: sodium chloride 0.9% 1,000 ML 125 ML IV (10:53)
[2020-02-22] MEDS: cefTRIAXone 1,000 MG in sodium chloride 0.9% (plus) 50 ML 100 MG IV (10:54)
[2020-02-22 11:52] VITALS: BP 129/91; PULSE 86; RESP 18; TEMP 37.6; O2SAT 94
--- NOTE | 2020-02-22 12:57 | PC.CHAP ---
Pastoral Care Encounter/Spiritual Assessment Type of Contact [] Declined park worker visit [] Patient/Family/Request visit [] Outpatient visit [] Follow-up visit [] Physician referral [] Code/Alert [] Routine visit [] Staff referral [] Actively dying [xx] Patient sleeping [] Family support [] [] Out of room [] Palliative care [] [] Receiving care in room [] Pre-surgical visit [] Trauma [] Long length of stay [] ICU visit [] Other: Relational/Emotional Strength [] Patient feels connected with others/family/visitors/staff [] Distress [] Loneliness/isolation [] Abandonment Spirituality of Patient [] Person of Chely [] Attends Hoahaoism of their [place] [] Believes in Prayer [] Reads Bible or Shinto materials [] There are Spiritual issues to be addressed Plug And Mold Finisher Interventions [] Prayer [] Active listening [] Non-anxious presence [] Spiritual/emotional support [] Crisis/trauma care [] Spiritual counseling [] Bereavement support [] Provided bereavement packet [] Provided Bible/devotional materials [] Provided toy/stuffed animal, coloring book to patient or family member [] Provided Communion [] Anointing/[place] [] Salvation [] Completed spiritual assessment [] Other: Impact on Illness or Injury [] Angry [] Fearful [] Anxious [] Often cries [] Exhaustion [] Unable to work [] Unable to attend hoahaoism [] Unable to walk/stand [] Unable to read [] Unable to drive [] Unable to eat/drink [] Unable to sleep [] Unable to be with family [] Patient intubated [] Other: Summary Follow up needed Time spent with patient
[2020-02-22] MEDS: famotidine 20 mg Tablet PO ×2 (13:07→18:41)
--- NOTE | 2020-02-22 13:10 | PC.NURSE ---
stool coffee ground looking
[2020-02-22 15:53] VITALS: BP 132/80; PULSE 86; RESP 18; TEMP 37.3; O2SAT 94
[2020-02-22 19:47] VITALS: BP 127/79; PULSE 77; RESP 20; TEMP 37.3; O2SAT 94
[2020-02-23] VITALS: BP 119/74; PULSE 68; RESP 18; TEMP 36.7; O2SAT 94
[2020-02-23] MEDS: sodium chloride 0.9% 1,000 ML 125 ML IV ×2 (00:58→08:25)
[2020-02-23 04:00] VITALS: BP 135/79; PULSE 71; RESP 18; TEMP 37.1; O2SAT 94
[2020-02-23] MEDS: heparin 5,000 unit/mL INJ 1 mL 5000 UNIT SUBCUT (05:00)
[2020-02-23 06:15] LABS: Basophils # 0.1 10^3/uL (0.0-0.1); Basophils % 0.7 %; Eosinophils # 0.2 10^3/uL (0.0-0.8); Eosinophils % 2.3 %; Hematocrit 41.9 % (42.0-52.0); Hemoglobin 13.8 g/dL (11.7-16.6); Lymphocytes % 14.3 %; Mean Corpuscular HGB Conc 32.9 g/dL (30.0-36.0); Mean Corpuscular Hemoglobin 31.9 pg (28.0-34.0); Mean Platelet Volume 10.1 fL (7.4-10.4); Monocytes # 0.6 10^3/uL (0.2-0.9); Neutrophils # 5.04 10^3/uL (1.8-7.7); Neutrophils % 73.4 %; Nucleated Red Blood Cells % 0 %; Platelet Count 168 10^3/cmm (130-400); Red Blood Count 4.32 10^6/uL (4.1-5.3); Red Cell Distribution Width 12.6 % (12.1-15.1); White Blood Count 6.9 10^3/uL (4.0-10.0)
[2020-02-23 07:27] LABS: Alanine Aminotransferase 26 U/L (0-41); Alkaline Phosphatase 99 IU/L (40-130); Anion Gap 13.5 (5-19); Aspartate Amino Transferase 28 U/L (0-40); Blood Urea Nitrogen 27 mg/dL (8-23); Calcium 8.5 mg/dL (8.5-10.5); Carbon Dioxide 25 mmol/L (22-29); Chloride 105 mmol/L (98-107); Globulin 2.8 g/dL (1.3-4.6); Glomerular Filtration Rate 54.6 mL/min (90-130); Glucose 119 mg/dL (65-115); Osmolality Calculated 296 mOsm/kg (285-295); Potassium 3.5 mmol/L (3.5-5.1); Sodium 140 mmol/L (136-145); Total Bilirubin 0.5 mg/dL (0.15-1.2)
[2020-02-23 07:52] LABS: Total Protein 5.8 g/dL (6.6-8.7)
[2020-02-23 08:00] VITALS: BP 129/83; PULSE 73; RESP 18; TEMP 36.9; O2SAT 91
--- NOTE | 2020-02-23 08:21 | PC.NURSE ---
charted on the wrong patient, went in and fixed the right vitals on the right patient
[2020-02-23] MEDS: famotidine 20 mg Tablet PO (08:26)
[2020-02-23] MEDS: cefTRIAXone 1,000 MG in sodium chloride 0.9% (plus) 50 ML 100 MG IV (08:26)
[2020-02-23 11:33] VITALS: BP 129/83; PULSE 73; RESP 18; TEMP 36.9; O2SAT 91
--- NOTE | 2020-02-23 16:12 | PM.DCS ---
Discharge Providers Date of Admission: 02/21/20 17:44 Date of Discharge: February 23, 2020 Attending Provider at Admission: Benny Damon Attending Provider at Discharge: Vinh De La Garza MD Primary Care Provider: Sandra Grigsby MD Diagnoses at Discharge Discharge Diagnosis (1) Acute gastroenteritis: Permanent problem details: Resolved (2) Small bowel obstruction: Permanent problem details: Resolved (3) Acute kidney injury: Permanent problem details: Improving (4) UTI (urinary tract infection): Permanent problem details: Resolved Reason for Visit Reason for Visit: abd pain Hospital Course Hospital Course 69-year-old gentleman with history of hypertension, generalized aches and pains for which he takes ibuprofen, history of CVA for which he takes 81 mg aspirin presented to ER with complaints of 5 days of abdominal pain. He was passing gas, but was also belching quite a bit. Lost his appetite. CT abdomen pelvis in ER with findings worrisome for partial small bowel obstruction.Nonspecific enteritis. With abnormal appearance of distal stomach, with recommendation for further evaluation. Right nephrolithiasis. Probable left UPJ stenosis. UA with positive leukocyte esterase, 55-80 WBC. 2+ bacteria. Leukocytosis 14.9, afebrile, without tachycardia or other signs to suggest sepsis. Creatinine 1.7 with normal baseline. BUN 30. T bili 2.1. BNP 235. Lipase normal. In ER he had several bowel movements.After which he was felling better.He was admitted for the management of Partial SBO as well as gastroenteritis secondary to NSAID r/o other causes,GLENDA.Initially kept NPO with N.G tube which was later removed. He was started on Clear liquid diet and hich was later advanced to regular diet.His abominal pain had resolved at the time of admission,he was still having 3/4 episodes of loose stool,for which he was advised to continue with I.V hydration for a few more days in hospital to help prevent severe dehydration.He opted to go home and expressed his desire to continue with adequate oral intake,which is reasonable.He was hemodynamicaly stable at the time of discharge. With appropriate I.V hydration his GLENDA was also improving.He was told to continue to hold lisinopril as well as HCTZ and follow with his PCP in a week time with repeat BMP. For his UTI he received both Zosyn initially which was later de-escalated to ceftriaxone.He was not having any urinary complain at the time of discharge.Hence was not discharged on any ABxs.Last check follow up stool studies are still pending. Patient chart was reviewed for following the labs on 02/27 ( Stool studies ) and they were still not available. During this hospital stay he also received FL upper GI gastrografin which was Unremarkable for any acute findings. Patient was stable at the time of discharge.He will continue to follow his PCP as outpatient. Physical Exam Const: COMMON NORMALS: patient oriented x3 HENMT: COMMON NORMALS: normocephalic and atraumatic HEAD & SCALP: normocephalic and atraumatic Chest: COMMONS NORMALS: normal inspection of the chest Resp: COMMON NORMALS: normal respiratory effort and clear to auscultation bilaterally AUSCULTATION: clear to auscultation bilaterally Cardio: COMMON NORMALS: regular rate, regular rhythm, S1 normal heart sound present, S2 normal heart sound present, No gallops present (Cardio), No murmurs present (Cardio), No rub (Cardio) and Peripheral pulses 2+ throughout RATE: regular rate RHYTHM: regular rhythm HEART SOUNDS: S1 normal heart sound present and S2 normal heart sound present PERIPHERAL PULSES: Peripheral pulses 2+ throughout GI: COMMON NORMALS: Normal to inspection, nondistended, normoactive bowel sounds present, Soft to palpation, non-tender, No hepatosplenomegaly present and no masses AUSCULTATION: Yes normoactive bowel sounds PALPATION: Yes Soft to palpation and Yes No hepatosplenomegaly present RECTAL EXAM: Yes deferred : COMMON NORMALS: Yes no CVA tenderness BLADDER/KIDNEY EXAM: Yes no CVA tenderness Back/Pelvis: COMMON NORMALS: no CVA tenderness Extremity: COMMON NORMALS: no clubbing, cyanosis or edema and no pedal edema Neuro: COMMON NORMALS: patient oriented x3 Discharge Data Data Completed and Pending: Completed Studies During Hospitalization Category Date Time Status CT abdomen pelvis w con* [id number] Urge nt Cat Scan 02/20/20 23:36 Completed [place] upper GI gastr ografin [id number] Rout ine Exams 02/21/20 03:22 Completed XR chest 1V amy ble [id number] Routine Exams 02/21/20 02:26 Completed Pending at discharge Category Date Time Status Miscellaneous Piper t Routine Lab 02/22/20 11:19 Received Miscellaneous Piper t Routine Lab 02/22/20 11:19 Received Miscellaneous Piper t Routine Lab 02/22/20 11:19 Received Urine Culture Sta t Lab 02/20/20 21:37 Results Labs from last 24 hours 02/23/20 02/23/20 05:40 05:40 WBC 6.9 RBC 4.32 Hgb 13.8 Hct 41.9 L MCV 97.0 H MCH 31.9 MCHC 32.9 RDW 12.6 Plt Count 168 MPV 10.1 Neut % (Auto) 73.4 Lymph % (Auto) 14.3 [place] % (Auto) 9.0 Eos % (Auto) 2.3 Baso % (Auto) 0.7 Neut # (Auto) 5.04 Lymph # (Auto) 1.0 [place] # (Auto) 0.6 Eos # (Auto) 0.2 Baso # (Auto) 0.1 Nucleated RBC % (a uto) 0 Nucleated RBCs # 0.0 Sodium 140 Potassium 3.5 Chloride 105 Carbon Dioxide 25 Anion Gap 13.5 BUN 27 H Creatinine 1.3 H GFR Calculation 54.6 L Glucose 119 H Calculated Osmolal ity 296 H Calcium 8.5 Total Bilirubin 0.5 AST 28 ALT 26 Alkaline Phosphata se 99 Total Protein 5.8 L D Albumin 3.0 L Globulin 2.8 Vitals: Last Vital Signs Temp 98.5 F 02/23/20 11:33 Pulse 73 02/23/20 11:33 Resp 18 02/23/20 11:33 BP 129/83 02/23/20 11:33 Pulse Ox 91 02/23/20 11:33 Discharge Plan Discharge Patient Disposition: Home Condition: Stable Prescriptions: Continued sildenafil [Viagra] 100 mg tablet 100 mg PO DAILY PRN (Reason: sexual activity) Qty: 10 RF: 1 multivitamin Tablet 1 tab PO QAM RF: 0 aspirin 81 mg Tablet,Delayed Release (Dr/Ec) 81 mg PO QAM RF: 0 lorazepam 1 mg tablet 1 mg PO BEDTIME PRN (Reason: Anxiety) RF: 0 red yeast rice 600 mg Tablet 600 mg PO QAM RF: 0 melatonin 10 mg Tablet 20 mg PO BEDTIME RF: 0 turmeric 400 mg Capsule 400 mg PO QAM RF: 0 Held hydrochlorothiazide 12.5 mg tablet 12.5 mg PO DAILY Qty: 90 RF: 1 Hold Instructions: Resume on 03/01/20. lisinopril 20 mg tablet 20 mg PO QAM RF: 0 Hold Instructions: Resume on 03/08/20. Stool Softener 100 mg Capsule 200 mg PO QAM RF: 0 Hold Instructions: Resume on 03/01/20. Discontinued ibuprofen [Advil] 200 mg Tablet 400 - 800 mg PO PRN RF: 0 No Action amlodipine 5 mg tablet 5 mg PO DAILY Qty: 30 RF: 1 Discharge Orders: Discharge Order (Routine); Ordered 02/23/20 Ordered By: Vinh De La Garza Referrals: Sandra Grigsby MD [Primary Care Provider] - 1 week (PLEASE FOLLOW UP WITH DR. GRIGSBY WITHIN 1 WEEK OF DISCHARGE. ) Discharge Diet: Low Salt Discharge Activity: Resume usual activity Patient Instructions: Urinary Tract Infection in Men (GEN), Gastroenteritis (GEN) Activity Restrictions/Additional Instructions: Patient will continue to hold lisinopirl and HCTZ till he see his PCP in 1 week.He will follow his PCP with Repeat BMP for monitoring of Serum Creatinine. He will continue to keep himself well hydrated. Discharge Attestations Time Spent in Discharge Care*: greater than 30 min Specific Discharge Activities: educating patient, educating and/or supporting family/caregiver, discussing with case preparer and liner/social workers/dc planners, documenting/other paperwork and evaluating patient/reviewing data Status at Discharge: Cognitive status at discharge: cognitively intact, Behavioral status at discharge: cooperative, Functional status at discharge: independent ambulation Overall status at discharge: patient is back to baseline Quality Metrics Clinical Quality Measures During this hospital stay, did patient experience: None Coding Level of Care Code Acute Business Development Officer for g Fwd Diagnoses Acute gastroenteritis K52.9 Small bowel obstruction K56.609 Acute kidney injury N17.9 UTI (urinary tract infection) N39.0
== END 2020-02-23 11:47 | disposition home or self-care (01) | DRG 389 ==
LOC: ER 02-21 01:05 → MEDSURG 02-21 02:07
PROVIDERS: Family Medicine; Admitting Provider Internal Medicine; Emergency Provider Emergency Medicine; PCP Family Medicine; Visit Provider Internal Medicine
DX: K56.600 Partial intestinal obstruction, unspecified as to cause (principal); K52.1 Toxic gastroenteritis and colitis; N17.9 Acute kidney failure, unspecified; Q62.11 Congenital occlusion of ureteropelvic junction; N39.0 Urinary tract infection, site not specified; I10 Essential (primary) hypertension; Z86.73 Personal history of transient ischemic attack (TIA), and cerebral infarction without residual deficits; Z79.82 Long term (current) use of aspirin; K59.00 Constipation, unspecified; N20.0 Calculus of kidney; M19.90 Unspecified osteoarthritis, unspecified site; T39.395A Adverse effect of other nonsteroidal anti-inflammatory drugs [NSAID], initial encounter
CPT/HCPCS: 12345; 36415; 71045; 74177; 74240; 80053; 80307; 81001; 83605; 83690; 83880; 85025; 87046; 87077; 87086; 87177; 87209; 87493; 96372; 99282; G0378; J0696; J1644; J2060; J2543; J7030; J7040; Q9963; Q9967

== ENCOUNTER → 2020-03-03 11:05 | Outpatient (BNVA) | payer MEDICARE, OTHER, SELFPAY | PROVIDERS: PCP Family Medicine; Visit Provider Family Medicine | DX: I10 Essential (primary) hypertension (principal); E78.00 Pure hypercholesterolemia, unspecified; Z79.899 Other long term (current) drug therapy | CPT/HCPCS: 80048; 81000; 87086 ==

== ENCOUNTER 2020-03-04 10:38 | Inpatient (IN) | payer MEDICARE, OTHER, SELFPAY ==
[2020-03-04] VITALS (18 sets, daily range): BP systolic 121–179; BP diastolic 77–122; PULSE 70–92; RESP 16–28; TEMP 36.9; O2SAT 91–97; BMI 27.1
--- NOTE | 2020-03-04 | CT_ITS ---
WS: [id number] CT HEAD NONCONTRAST HISTORY: STROKE ALERT TECHNIQUE: Contiguous axial imaging performed through the brain in 2.5 mm imaging. Bone and soft tiss ue windows. Sagittal and coronal reformats reviewed. All CT scans at [facility] use at le ast one of these dose optimization techniques: automated exposure control; mA and/or kV adjustment pe r patient size (includes targeted exams where dose is matched to clinical indication); or iterative r econstruction. DLP: 857.05 mGy-cm. COMPARISON: 02/16/2008 No acute intracranial hemorrhage, midline shift or mass effect. Large prior infarcts with encephalomalacia involving the posterior RIGHT frontotemporal region and al so the RIGHT occipital lobe. There is additional volume loss and microvascular ischemic disease. No a cute sulcal effacement or edema appreciated. Focal area of decreased attenuation in the posterior LE FT occipital lobe. Not an acute infarct. Ventricles: Normal size with no hydrocephalus. Paranasal sinuses: As visualized are clear. Mastoid air cells: Well pneumatized. Calvarium and scalp: Skull is intact with no soft tissue edema or swelling. CT/CT head wo con* [id number] IMPRESSION: 1. No acute intracranial hemorrhage or edema. 2. Moderate size remote infarcts involving the RIGHT frontotemporal lobe and t he RIGHT occipital lobe. 3. Age-indeterminate but not acute possible infarct in the cortex of the LEFT occipital lobe. 4. Mild atrophy and chronic microvascular ischemic disease. Notified Julian Montano MD at 03/04/2020 10:50 AM.
[2020-03-04 10:51] LABS: Glucose Point of Care 175 mg/dL (70-110)
--- NOTE | 2020-03-04 10:53 | XRR_ITS ---
PROCEDURE INFORMATION: Exam: XR Chest, 1 View Exam date and time: 03/04/2020 11:02 AM Age: 69 years old Clinical indication: Other: Right sided weakness TECHNIQUE: Imaging protocol: XR of the chest Views: 1 view. COMPARISON: CR XR chest 1V portable [id number] 02/21/2020 3:00 AM FINDINGS: Lungs: Unremarkable. No consolidation. Pleural space: Unremarkable. No pleural effusion. No pneumothorax. Heart/Mediastinum: Unremarkable. No cardiomegaly. Bones/joints: Unremarkable. XR/XR chest 1V portable [id number] IMPRESSION: No acute findings.
--- NOTE | 2020-03-04 10:54 | ECG_ITS ---
[facility] Test Date: 2020-03-04 Pat Name: Elodia Hagen Department: Room: Gender: Male It Programmer Analyst: : 1950 Requested By: Julian Montano Order Number: [id number] Jensen MD: Ree Gee M.D. Measurements Intervals Beason Rate: 88 P: 54 MS: 159 QRS: -38 QRSD: 94 T: 39 QT: 364 QTc: 441 Interpretive Statements SINUS RHYTHM LEFT AXIS DEVIATION [QRS AXIS < -30] POSSIBLE LEFT VENTRICULAR HYPERTROPHY [VOLTAGE CRITERIA PLUS LAE OR QRS WIDENING] No previous ECG available for comparison Electronically Signed On 03-04-2020 20:07:03 DIRECTOR OF DIGITAL MARKETING by Ree Gee M.D. [id number]
--- NOTE | 2020-03-04 11:00 | CT_ITS ---
WS: [id number] CT ANGIOGRAM CEREBRAL AND CAROTID ARTERIES HISTORY: acute stroke TECHNIQUE: CT angiogram is performed of the carotid and cerebral arteries. During arterial injection imaging is obtained from the skull vertex to the aortic arch in 1.25 mm imaging. Coronal and sagittal reformats are submitted. Additional multi planar reformats of the carotid and cerebral arteries are submitted, MIP imaging also reviewed. NASCET criteria utilized. All CT scans at [facility] use at least one of these dose optimization techniques: automated exposure control; mA and/or kV ad justment per patient size (includes targeted exams where dose is matched to clinical indication); or iterative reconstruction. CONTRAST: Omnipaque 350; 95 mL IV. DLP: 2818.06 mGy.cm COMPARISON: 10/09/2012 Carotid Angiogram: Right carotid: Common carotid artery: Arises normally from the innominate artery. No significant plaque or stenosis. Internal carotid artery: No plaque or stenosis. External carotid artery: Patent. Left carotid: Common carotid artery: Arises normally from the aorta. No significant plaque or stenosis. Internal carotid artery: No plaque or stenosis. External carotid artery: Patent. Right vertebral artery: Unremarkable. Left vertebral artery: Unremarkable. Arises normally from the subclavian artery. Subclavian arteries: No stenosis or significant abnormality. Upper thorax: Normal. Thyroid gland: Normal. Osseous structures: Moderate spondylitic changes of the cervical spine. CEREBRAL ANGIOGRAM: Intracranial vertebral arteries: Normal with no significant atherosclerosis. Basilar artery: No significant stenosis or occlusion. No aneurysm. Intracranial Internal carotid arteries: Demonstrates no significant stenosis or plaque. Middle cerebral arteries: Normal. Anterior cerebral arteries and ACOM: Normal. Posterior cerebral arteries and PCOM's: Normal. Dural venous sinuses are normally enhancing. Mastoid air cells: 0 Paranasal sinuses: Normal. Calvarium: Normal. CT/CT angio headneck* [id number] IMPRESSION: 1. No significant carotid artery stenosis. 2. No occlusions or aneurysms. Very minimal atherosclerotic changes through th e cavernous sinuses.
--- NOTE | 2020-03-04 11:05 | W.ED.NEUROSD ---
HPI - Neuro Symptoms/Deficit General: Chief Complaint: Neuro Symptoms/Deficit Stated Complaint: STROKE Time Seen by Provider: 03/04/20 10:41 History of Present Illness: HPI Narrative: Patient is a well-appearing 6-year-old male seen for acute right-sided weakness and slurred speech which began at 9:30 AM. Prior to this, he felt completely normal with no headache or recent sickness. He states that initially, he had profound weakness of the right arm and leg and was unable to bring the right leg off the bed nor the right arm off the bed but could only move his right wrist a small amount. At the time of my exam, symptoms have improved significantly and he has only minimal slurring to his speech, mild right facial droop, and some weakness of the right arm. He denies sensory loss of the face, arm, leg. He states that he thinks he had a brain bleed or a stroke 10 years ago, but he is unsure which one. He denies taking blood thinner medication at this time. He endorses taking a baby aspirin every day. He denies visual disturbance. He has no other acute complaints. Review of Systems General: Reports: 10 or more systems reviewed and unremarkable except in HPI and below PFSH ED PFSH: Medical History Acute gastroenteritis Resolved Acute kidney injury Improving Arthritis Cystitis Enteritis History of cataract History of stroke Hypertension Incomplete tear of left rotator cuff Mucosal abnormality of stomach Nephrolithiasis Small bowel obstruction Resolved Stenosis of ureteropelvic junction (UPJ) UTI (urinary tract infection) Resolved Surgical History History of arthroscopic surgery of shoulder History of femoral hernia repair History of vasectomy Family History Other No significant family history Social History Smoking and tobacco status: never smoked Alcohol intake: never Lives independently: Yes Marital status: NIH stroke score NIHSS: Level Of Consciousness - 1a: 0 Level Of Consciousness Questions - 1b: Both Correct Level Of Consciousness Commands - 1c: Both Correct Best Gaze - 2: Normal Visual Cassidy - 3: No Visual Loss Facial Palsy - 4: Partial Paralysis Motor Arm Right - 5: Effort Against [place] Motor Arm Left - 5: No Drift Motor Leg Right - 6: No Drift Motor Leg Left - 6: No Drift Limb Ataxia - 7: Present In One Limb Sensory - 8: Normal Best Language - 9: No Aphasia Dysarthia - 10: Mild/Moderate Dysarthia Extinction And Inattention - 11: 0 Score: Total Score: 6 Physical Exam Const: COMMON NORMALS: no acute distress, patient oriented x3 and alert HENMT: COMMON NORMALS: normocephalic and atraumatic HEAD & SCALP: normocephalic and atraumatic Eye: COMMON NORMALS: Equal, round and reactive pupils present, EOMs intact bilaterally and no scleral icterus PUPIL: Yes Equal, round and reactive pupils present Resp: COMMON NORMALS: normal respiratory effort and No retractions Cardio: COMMON NORMALS: regular rate, regular rhythm and No murmurs present (Cardio) RATE: regular rate RHYTHM: regular rhythm GI: COMMON NORMALS: Normal to inspection, nondistended, normoactive bowel sounds present, Soft to palpation and non-tender PALPATION: Yes Soft to palpation Neuro: COMMON NORMALS: patient oriented x3 SENSORIUM/ORIENTATION: Yes alert OTHER: See NIH exam. Otherwise, normal neurologic exam. Skin: COMMON NORMALS: no rashes or lesions noted GENERAL SKIN EXAM: no rashes or lesions noted Course Vital Signs: Vital signs: Vital Signs Pulse Rate 70 03/04/20 13:55 Respiratory Rate 22 H 03/04/20 13:55 Blood Pressure 140/99 03/04/20 13:55 Pulse Oximetry 93 03/04/20 13:55 MDM - Neuro Symptoms/Deficit MDM Narrative: Medical decision making narrative: Patient remained hemodynamically stable throughout ED course. As time went on, he seemed to be regaining speech, as well as right upper extremity strength. TPA was administered as guided by neurology. is at the bedside. He will be observed until such time that a bed is made available for him in the intensive care unit for further testing and observation post TPA. Lab Data: Labs: Lab Results 03/04/20 03/04/20 03/04/20 Range/Units 10:27 10:27 10:27 WBC 5.4 (4.0-10.0) 10^3/ uL RBC 4.95 (4.1-5.3) 10^6/u L Hgb 15.7 (11.7-16.6) g/dL Hct 46.9 (42.0-52.0) % MCV 94.7 H (80-94) fL MCH 31.7 (28.0-34.0) pg MCHC 33.5 (30.0-36.0) g/dL RDW 12.3 (12.1-15.1) % Plt Count 338 (130-400) 10^3/c mm MPV 9.4 (7.4-10.4) fL Neut % (Auto) 67.7 % Lymph % (Auto) 22.3 % [place] % (Auto) 7.1 % Eos % (Auto) 2.0 % Baso % (Auto) 0.7 % Neut # (Auto) 3.63 (1.8-7.7) 10^3/u L Lymph # (Auto) 1.2 (0.8-4.8) 10^3/u L [place] # (Auto) 0.4 (0.2-0.9) 10^3/u L Eos # (Auto) 0.1 (0.0-0.8) 10^3/u L Baso # (Auto) 0.0 (0.0-0.1) 10^3/u L Nucleated RBC % (a uto) 0 % Nucleated RBCs # 0.0 /100WBC PT 13.50 (12.1-14.9) SECO NDS INR 1.00 (0.8-1.2) APTT 27.1 (23.9-36.7) SECO NDS Sodium 138 (136-145) mmol/L Potassium 3.7 (3.5-5.1) mmol/L Chloride 98 (98-107) mmol/L Carbon Dioxide 27 (22-29) mmol/L Anion Gap 16.7 (5-19) BUN 19 (8-23) mg/dL Creatinine 1.2 (0.7-1.2) mg/dL GFR Calculation 59.9 L (90-130) mL/min Glucose 167 H (65-115) mg/dL POC Glucose (70-110) mg/dL Calculated Osmolal ity 292 (285-295) mOsm/k g Calcium 9.5 (8.5-10.5) mg/dL Total Bilirubin 0.6 (0.15-1.2) mg/dL AST 29 (0-40) U/L ALT 42 H (0-41) U/L Alkaline Phosphata se 185 H (40-130) IU/L Troponin T Baselin e (0-15) ng/L Troponin T 120 Min citizen [place] (0-15) ng/L Delta Troponin T (0-10) ABS# Total Protein 7.5 (6.6-8.7) g/dL Albumin 4.3 (3.5-5.2) g/dL Globulin 3.2 (1.3-4.6) g/dL Urine Color (Yellow) Urine Appearance (CLEAR) Urine pH (5-7) Ur Specific Gravit y (1.005-1.030) Urine Protein (Negative) Urine Glucose (UA) (Normal) Urine Ketones (Negative) Urine Blood (Negative) Urine Nitrate (Negative) Urine Bilirubin (Negative) Urine Urobilinogen (Negative) mg/dL Ur Leukocyte Arlene ase (Negative) Urine RBC (0-2) /hpf Urine WBC (0-5) /hpf Ur Squamous Epith Cells (0-5) /hpf Amorphous Sediment Urine Bacteria (NONE) /hpf 03/04/20 03/04/20 03/04/20 Range/Units 10:27 10:48 11:44 WBC (4.0-10.0) 10^3/ uL RBC (4.1-5.3) 10^6/u L Hgb (11.7-16.6) g/dL Hct (42.0-52.0) % MCV (80-94) fL MCH (28.0-34.0) pg MCHC (30.0-36.0) g/dL RDW (12.1-15.1) % Plt Count (130-400) 10^3/c mm MPV (7.4-10.4) fL Neut % (Auto) % Lymph % (Auto) % [place] % (Auto) % Eos % (Auto) % Baso % (Auto) % Neut # (Auto) (1.8-7.7) 10^3/u L Lymph # (Auto) (0.8-4.8) 10^3/u L [place] # (Auto) (0.2-0.9) 10^3/u L Eos # (Auto) (0.0-0.8) 10^3/u L Baso # (Auto) (0.0-0.1) 10^3/u L Nucleated RBC % (a uto) % Nucleated RBCs # /100WBC PT (12.1-14.9) SECO NDS INR (0.8-1.2) APTT (23.9-36.7) SECO NDS Sodium (136-145) mmol/L Potassium (3.5-5.1) mmol/L Chloride (98-107) mmol/L Carbon Dioxide (22-29) mmol/L Anion Gap (5-19) BUN (8-23) mg/dL Creatinine (0.7-1.2) mg/dL GFR Calculation (90-130) mL/min Glucose (65-115) mg/dL POC Glucose 175 H (70-110) mg/dL Calculated Osmolal ity (285-295) mOsm/k g Calcium (8.5-10.5) mg/dL Total Bilirubin (0.15-1.2) mg/dL AST (0-40) U/L ALT (0-41) U/L Alkaline Phosphata se (40-130) IU/L Troponin T Baselin e 15 (0-15) ng/L Troponin T 120 Min citizen [place] (0-15) ng/L Delta Troponin T (0-10) ABS# Total Protein (6.6-8.7) g/dL Albumin (3.5-5.2) g/dL Globulin (1.3-4.6) g/dL Urine Color Yellow (Yellow) Urine Appearance Clear (CLEAR) Urine pH 5 (5-7) Ur Specific Gravit y 1.020 (1.005-1.030) Urine Protein Neg (Negative) Urine Glucose (UA) Norm (Normal) Urine Ketones Negative (Negative) Urine Blood Neg (Negative) Urine Nitrate Negative (Negative) Urine Bilirubin Neg (Negative) Urine Urobilinogen Norm (Negative) mg/dL Ur Leukocyte Arlene ase Trace H (Negative) Urine RBC 0-4 H (0-2) /hpf Urine WBC 0-4 H (0-5) /hpf Ur Squamous Epith Cells 0-4 H (0-5) /hpf Amorphous Sediment Not Reportable Urine Bacteria 1+ H (NONE) /hpf 01/19/21 Range/Units 12:17 WBC (4.0-10.0) 10^3/ uL RBC (4.1-5.3) 10^6/u L Hgb (11.7-16.6) g/dL Hct (42.0-52.0) % MCV (80-94) fL MCH (28.0-34.0) pg MCHC (30.0-36.0) g/dL RDW (12.1-15.1) % Plt Count (130-400) 10^3/c mm MPV (7.4-10.4) fL Neut % (Auto) % Lymph % (Auto) % [place] % (Auto) % Eos % (Auto) % Baso % (Auto) % Neut # (Auto) (1.8-7.7) 10^3/u L Lymph # (Auto) (0.8-4.8) 10^3/u L [place] # (Auto) (0.2-0.9) 10^3/u L Eos # (Auto) (0.0-0.8) 10^3/u L Baso # (Auto) (0.0-0.1) 10^3/u L Nucleated RBC % (a uto) % Nucleated RBCs # /100WBC PT (12.1-14.9) SECO NDS INR (0.8-1.2) APTT (23.9-36.7) SECO NDS Sodium (136-145) mmol/L Potassium (3.5-5.1) mmol/L Chloride (98-107) mmol/L Carbon Dioxide (22-29) mmol/L Anion Gap (5-19) BUN (8-23) mg/dL Creatinine (0.7-1.2) mg/dL GFR Calculation (90-130) mL/min Glucose (65-115) mg/dL POC Glucose (70-110) mg/dL Calculated Osmolal ity (285-295) mOsm/k g Calcium (8.5-10.5) mg/dL Total Bilirubin (0.15-1.2) mg/dL AST (0-40) U/L ALT (0-41) U/L Alkaline Phosphata se (40-130) IU/L Troponin T Baselin e (0-15) ng/L Troponin T 120 Min [place] 15.76 H (0-15) ng/L Delta Troponin T 0.76 (0-10) ABS# Total Protein (6.6-8.7) g/dL Albumin (3.5-5.2) g/dL Globulin (1.3-4.6) g/dL Urine Color (Yellow) Urine Appearance (CLEAR) Urine pH (5-7) Ur Specific Gravit y (1.005-1.030) Urine Protein (Negative) Urine Glucose (UA) (Normal) Urine Ketones (Negative) Urine Blood (Negative) Urine Nitrate (Negative) Urine Bilirubin (Negative) Urine Urobilinogen (Negative) mg/dL Ur Leukocyte Arlene ase (Negative) Urine RBC (0-2) /hpf Urine WBC (0-5) /hpf Ur Squamous Epith Cells (0-5) /hpf Amorphous Sediment Urine Bacteria (NONE) /hpf EKG Data^: EKG 1: EKG interpretation date: 03/04/20 EKG interpretation time: 10:52 Interpretation: Sinus rhythm with left axis deviation, no ST elevation or depression, intervals within normal limits. Critical Care Time Critical Care Time: Critical Care Time: Yes Total Critical Care Time: 59 Attestation: This case had a high probability of a clinically significant, sudden, or life threatening deterioration of this patient's condition which required my full and direct attention, intervention and personal management. Discharge Plan Discharge Prescriptions: No Action sildenafil [Viagra] 100 mg tablet 100 mg PO DAILY PRN (Reason: sexual activity) Qty: 10 RF: 1 amlodipine 5 mg tablet 5 mg PO DAILY Qty: 30 RF: 1 Acid Signals Collector/Analyst Tabs 1 tab PO DAILY PRN (Reason: Heartburn) RF: 0 multivitamin Tablet 1 tab PO QAM RF: 0 aspirin 81 mg Tablet,Delayed Release (Dr/Ec) 81 mg PO QAM RF: 0 lorazepam 1 mg tablet 1 mg PO BEDTIME PRN (Reason: Anxiety) RF: 0 red yeast rice 600 mg Tablet 600 mg PO QAM RF: 0 melatonin 10 mg Tablet 20 mg PO BEDTIME RF: 0 turmeric 400 mg Capsule 400 mg PO QAM RF: 0 Coding Level of Care Code ED [place] Machine Operator for Chg Fwd Exam Detailed
[2020-03-04 11:10] LABS: Basophils % 0.7 %; Eosinophils # 0.1 10^3/uL (0.0-0.8); Hematocrit 46.9 % (42.0-52.0); Hemoglobin 15.7 g/dL (11.7-16.6); Lymphocytes # 1.2 10^3/uL (0.8-4.8); Lymphocytes % 22.3 %; Mean Corpuscular HGB Conc 33.5 g/dL (30.0-36.0); Mean Corpuscular Hemoglobin 31.7 pg (28.0-34.0); Mean Corpuscular Volume 94.7 fL (80-94); Mean Platelet Volume 9.4 fL (7.4-10.4); Monocytes # 0.4 10^3/uL (0.2-0.9); Monocytes % 7.1 %; Neutrophils # 3.63 10^3/uL (1.8-7.7); Neutrophils % 67.7 %; Nucleated Red Blood Cells % 0 %; Platelet Count 338 10^3/cmm (130-400); Red Blood Count 4.95 10^6/uL (4.1-5.3); Red Cell Distribution Width 12.3 % (12.1-15.1); White Blood Count 5.4 10^3/uL (4.0-10.0)
[2020-03-04 11:34] LABS: Partial Thromboplastin Time 27.1 SECONDS (23.9-36.7)
--- NOTE | 2020-03-04 11:35 | P.PNCC_ITS ---
Stroke Alert Activation ED Arrival Date: 03/04/20 ED Arrival Time: 10:40 ED Physican at Bedside: 10:45 Last Known Normal/at Baseline: 1-2 hours ago Other Last Known Well Infomation: Stroke was activated by [facility] at 1026 with a report of time of onset at 09 30 and dense right-sided weakness. I immediately called the emergency department and spoke with triage. I asked to be informed and then called back at the time of the patient's arrival at 1040. He was taken directly to CT. I looked at his image on the monitor while talking with Dr. Montano, who evaluated the patient just as soon his his CAT scan was completed. Dr. Montano obtained an NIH stroke scale score of 5 with significant dysarthria and right-sided weakness. He had no contraindication to TPA and while I was talking with Dr. Montano I suggested to go ahead with the bolus. I took a few minutes to review the patient's old chart from [facility], as I had seen him last in 2012 for multiple strokes in multiple vascular distributions. The patient thought that he had a history of brain hemorrhage but in fact he had a history of multiple ischemic strokes in multiple vascular distributions and I sent him for NEY and loop recorder but those were not done and he did not return to care. I performed an NIH stroke scale and obtained a score of 7. The TPA bolus was given at 1120, 40 minutes after the patient's arrival. The order for TPA was given 15 minutes prior to that. The patient is now scheduled for CT angiogram to look for an M1 clot. At the time of my last exam he has mild dysarthria, right lower extremity ataxia, right upper and lower extremity weakness with a flaccid right hand. I suspect a subcortical stroke. His exam did not change from the time of my arrival until the time of my departure. I took time to talk with the patient and his about his diagnosis and plan of treatment. The patient had multiple questions about TPA, risks and benefits and those were discussed in great detail. Stroke Alert Activated by: EMS, [facility] Stroke Alert Activation Time: 10:26 Stroke MD @ Bedside Time: 10:30 NIH Stroke Scale Time: 11:15 NIH stroke score NIHSS: Level Of Consciousness - 1a: 0 Level Of Consciousness Questions - 1b: Both Correct Level Of Consciousness Commands - 1c: Both Correct Best Gaze - 2: Normal Visual Cassidy - 3: No Visual Loss Facial Palsy - 4: Minor Paralysis Motor Arm Right - 5: Effort Against [place] Motor Arm Left - 5: No Drift Motor Leg Right - 6: Effort Against [place] Motor Leg Left - 6: No Drift Limb Ataxia - 7: Present In One Limb Sensory - 8: Normal Best Language - 9: No Aphasia Dysarthia - 10: Mild/Moderate Dysarthia Extinction And Inattention - 11: 0 Score: Total Score: 7 Stroke Alert Data/Treatment Time to CT of Head: 10:40 CT Results Time: 11:00 CT Impression: Old infarcts right middle cerebral artery, right posterior cerebral artery. Small meningioma left parietal Stroke Risk Factors: hypertension tPA Started Time: tPA Started - Time: 11:20 tPA Admin Prior to Arrival: No Patient & Family Educated on: Cause of Stroke, Risk Factors, Treament Plan and tPA Risks/Benefits Standardized Stroke Orders Used: Yes Other Information: CT angiogram was reviewed. No large vessel stenosis. No significant intracranial disease. Critical Care Time Critical Care Time: 30 - 74 mins A&P Assessment and plan (1) Left acute arterial ischemic stroke, MCA (middle cerebral artery): 69-year-old man with previous history of multiple strokes in multiple vascular distributions but no ischemic events for the last 7 years who now presents with ischemic stroke in left middle cerebral artery distribution. This was a subcortical lesion with dense involvement of the motor function on the right but no aphasia. He did have profound dysarthria and still has mild dysarthria on exam. This is consistent with a small vessel lesion, and indeed his CT angiogram shows no large vessel occlusion. Recommend hospitalization and permissive management of his blood pressure. I would recommend normal saline at 125 250 mL an hour for the next day or 2. MRI as outpatient. TPA completed. CT angiogram does not show large vessels at risk. I would set him up for 20-day monitor at the time of discharge. Call me if you have need of further in but from neurology. Status: Acute Coding Level of Care Code Acute Tool And Die Assembler for Jordan Lcuero Diagnoses Left acute arterial ischemic stroke, MCA (middle cerebral artery) I63.512
[2020-03-04 11:41] LABS: Alanine Aminotransferase 42 U/L (0-41); Albumin Level 4.3 g/dL (3.5-5.2); Alkaline Phosphatase 185 IU/L (40-130); Anion Gap 16.7 (5-19); Aspartate Amino Transferase 29 U/L (0-40); Blood Urea Nitrogen 19 mg/dL (8-23); Calcium 9.5 mg/dL (8.5-10.5); Carbon Dioxide 27 mmol/L (22-29); Chloride 98 mmol/L (98-107); Creatinine Clr Calc Pharmacy 65.2688; Globulin 3.2 g/dL (1.3-4.6); Glomerular Filtration Rate 59.9 mL/min (90-130); Glucose 167 mg/dL (65-115); Osmolality Calculated 292 mOsm/kg (285-295); Potassium 3.7 mmol/L (3.5-5.1); Sodium 138 mmol/L (136-145); Total Bilirubin 0.6 mg/dL (0.15-1.2); Total Protein 7.5 g/dL (6.6-8.7); Troponin(5th) Baseline 15 ng/L (0-15)
[2020-03-04 12:20] LABS: Add Urine Microscopic? YES; Bilirubin Urine Neg (Negative); Blood Urine Neg (Negative); Glucose Urine UA Norm (Normal); Ketones Urine Negative (Negative); Leukocyte Esterase Urine Trace (Negative); Nitrate Urine Negative (Negative); Protein Urine Neg (Negative); Urine Appearance Clear (CLEAR); Urine Color Yellow (Yellow); Urobilinogen Urine Norm (Negative); pH Urine 5 (5-7)
[2020-03-04 12:21] LABS: Add Urine Culture? No; Bacteria Urine 1+ /hpf; RBC Urine 0-4 /hpf (0-2); Squamous Epithelial Cell Urine 0-4 /hpf (0-5); WBC Urine 0-4 /hpf (0-5)
--- NOTE | 2020-03-04 12:22 | PC.PHAR ---
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
[2020-03-04 12:56] LABS: Troponin 5 2HR 15.76 ng/L (0-15); Troponin 5 2HR Delta 0.76 ABS# (0-10)
[2020-03-04] MEDS: iohexol 350 mg/mL 100 mL Btl IV (13:18)
--- NOTE | 2020-03-04 14:40 | PM.HP ---
Providers/Chief Complaint Primary Care Provider: Sandra Alba MD Chief Complaint: STROKE History of Present Illness 69-year-old male with a past medical history significant for arthritis, hypertension, hypercholesterolemia, retinal detachment affecting left monocular vision, recent hospitalization for partial small bowel obstruction and multiple prior strokes including right middle cerebral artery (2008) plus left subcortical lacunar infarct on aspirin 81 mg daily who presented ER with right-sided weakness. Patient stated symptoms started around 9 am while he was out working. code stroke was initiated on arrival. Neurology was consulted stat. Patients initial NIH score was 7. He was noted have dysarthria and right upper and lower extremity weakness. Patient was taken for CT head without contrast which did not show any evidence of acute bleed. Given onset of symptoms patient was started on TPA infusion. Shortly after his symptoms slightly improved particularly with dysarthria( no longer present at the time of my eval) and right lower extremity weakness. CTA head and neck was then performed which did not show any evidence of acute flow limiting stenosis. Laboratory workup performed in emergency room showed a WBC of 5.4, hemoglobin of 15.7, hematocrit of 46.9 and platelet count of 338.INR 1.0.Sodium 138, potassium 3.7, chloride 98, bicarb 27, BUN 19 and creatinine of 1.2. Glucose of 167.AST of 29, ALT of 42, alkaline phosphatase 185. Troponin T of 15 with a repeat at 120 minutes of 15.76. and 19.66 at 6:00 a.m.Urinalysis showed trace leukocyte esterase.Of note patient denies any recent fever, chills, nausea vomiting. Denies chest pain or shortness of breath. Also denied abdominal pain, diarrhea, constipation, dysuria, frequency or urgency. Review of Systems General: Reports: 10 or more systems reviewed and unremarkable except in HPI and below Medications/Allergies Home Medications Medication Instructions Recorded Confirmed Last Taken Type sildenafil 100 mg tablet 100 mg PO DAILY PRN #10 tab 02/04/20 03/04/20 Unknown Rx aspirin 81 mg PO QAM 02/21/20 03/04/20 Unknown History lorazepam 1 mg PO BEDTIME PRN 02/21/20 03/04/20 Unknown History melatonin 20 mg PO BEDTIME 02/21/20 03/04/20 Unknown History multivitamin 1 tab PO QAM 02/21/20 03/04/20 Unknown History red yeast rice 600 mg PO QAM 02/21/20 03/04/20 Unknown History turmeric 400 mg PO QAM 02/21/20 03/04/20 Unknown History amlodipine 5 mg tablet 5 mg PO DAILY #30 tab 02/25/20 03/04/20 Unknown Rx Acid Java Programming Professor Tabs 1 tab PO DAILY PRN 03/04/20 03/04/20 Unknown History Allergies Allergy/AdvReac Type Severity Reaction Status Date / Time No Known Allergies Allergy Verified 03/04/20 12:19 PFSH Acute PFSH: Medical History Acute gastroenteritis Resolved Acute kidney injury Improving Arthritis Cystitis Enteritis History of cataract History of stroke Hypertension Incomplete tear of left rotator cuff Mucosal abnormality of stomach Nephrolithiasis Small bowel obstruction Resolved Stenosis of ureteropelvic junction (UPJ) UTI (urinary tract infection) Resolved Surgical History History of arthroscopic surgery of shoulder History of femoral hernia repair History of vasectomy Family History Other No significant family history Social History Smoking and tobacco status: never smoked Alcohol intake: never Lives independently: Yes Marital status: Vitals/I&O/Wt Last Vital Signs Pulse 84 03/04/20 15:49 Resp 20 H 03/04/20 15:49 BP 137/92 03/04/20 15:49 Pulse Ox 95 03/04/20 15:49 Weight last 48 hrs Weight 88.451 kg Physical Exam Narrative: EXAM NARRATIVE: General: Alert, Awake, Mild distress due to right sided weakness HEENT : Grossly unremarkable CVS : RRR, no obvious murmurs, rubs or gallops CHEST : CTABL ABD: Soft, NT,ND Ext : No edema Neuro: CN 2-12 intact, MS 2/5 on RUE, 3/5 on RLE, No deficits on left, speech normal, sensation intact Data : 03/04/20 10:27 03/04/20 10:27 A&P Assessment and plan (1) Left acute arterial ischemic stroke, MCA (middle cerebral artery): Status: Acute (2) Hypertension: Status: Acute Qualifiers: Hypertension type: essential hypertension Qualified Code(s): I10 - Essential (primary) hypertension (3) Hypercholesterolemia: Status: Acute (4) Hx TIA/stroke w/o resid: Status: Acute Acute CVA with Dysarthria/R-sided weakness s/p TPA Admit to ICU for close observation Hx of MCA (2008) and left subcortical lacunar infarct(2012) NIH on admission - 7 CT head/CTA head and Neck - No acute hemorrhage or vascular stenosis S/p TPA infusion Continue neuro-checks/NIH monitoring as ordered BP goal : < 180/105 Labatalol 10 mg IV q8hr PRN Start asa 81 mg po daily > 24hr Post TPA Lipitor 80 mg PO QHS MRI Head w/wo contrast ordered for 24hr post TPA Lipid panel and a1c in AM ECHO ordered NPO until speech eval ST/PT/OT consulted Monitor on telemetry May need NEY/Loop as per neurology recommendation Hypertension On norvasc at home Will resume once ST eval and diet initiated Labetalol PRN for BP over above goal Hypercholesterolemia Statin as note above Urolithiasis with possible left UPJ stenosis Noted in recent hospitalization 02/21/20 Planned for outpatient urology consult Tx with abx for suspected UTI GI ppx Pepcid 20 mg IV BID DVT ppx SCDS only Start heparin 48hr post TPA Attestations Medical Necessity Statement*: Patient admitted with acute CVA, will likely require over 2 midnight stay in hospital for eval and treatment Time Spent in Patient Care: Greater than 35 minutes (>than 50% of time spent in counselling and/or direct pt care on unit). Critical Care Time: Critical Care Time (min): 55 Coding Level of Care Code Acute Esthetician Spa for Jordan Fwmercedez Diagnoses Left acute arterial ischemic stroke, MCA (middle cerebral artery) I63.512 Hypertension I10 Hypertension type: essential hypertension Hypercholesterolemia E78.00 Hx TIA/stroke w/o resid Z86.73
[2020-03-04 17:06] LABS: Troponin 5 6HR 19.66 ng/L (0-15); Troponin 5 6HR Delta 4.66 ng/L (0-12)
[2020-03-04] MEDS: atorvastatin 40 mg Tablet 80 MG PO (22:25)
--- NOTE | 2020-03-04 23:30 | PC.NURSE ---
Report received from Joyce in ED. Patient admitted to ICU-08 via wheelchair with RN et partner. Once in room 8, patient ambulated without assistance to ICU bed. Once in bed, patient placed on bedside monitor et assessed. Please see physical assessment et vital sign flowsheet for details.
[2020-03-05] VITALS (36 sets, daily range): BP systolic 128–166; BP diastolic 78–107; PULSE 67–95; RESP 12–28; TEMP 36.9; O2SAT 92–97
[2020-03-05 05:32] LABS: Cholesterol 117 mg/dL (0-200); HDL Cholesterol 26 mg/dL (60-100); LDL Cholesterol Calculated 58 mg/dL (50-129); LDL HDL Ratio 2.23 RATIO (0.00-3.22); Triglycerides 164 mg/dL (0-150)
--- NOTE | 2020-03-05 06:00 | USCV_ITS ---
Xiao Elodia Age: 69 Gender: M : 1950 Exam Date: 03/05/2020 05:36 Ordering Phys: Lona Mitchell MD Technologist: Bethany Palacios Exam Location: [facility] – [place], [place] Indication: CVA BP: 130 / 76 HR: 79 Rhythm: Sinus Technical Quality: Very technically difficult study MEASUREMENTS (Male / Female) Normal Values 2D ECHO LV Diastolic Diameter PLAX 3.6 cm 4.2 - 5.9 / 3.9 - 5.3 cm LV Systolic Diameter PLAX 2.4 cm LV Chamber Size 3.3 cm IVS Diastolic Thickness 1.4 cm 0.6 - 1.0 / 0.6 - 0.9 cm IVS Systolic Thickness 1.7 cm LVPW Diastolic Thickness 1.6 cm 0.6 - 1.0 / 0.6 - 0.9 cm LVPW Systolic Thickness 2.0 cm RV Chamber Size 2.0 cm LVOT Diameter 2.1 cm LV Ejection Fraction 2D Teich 63.4 % LV Ejection Fraction MOD 2C 46.7 % LV Ejection Fraction 2C AL 46.9 % LA Diameter 3.4 cm LA Width 3.7 cm LA Height 5.9 cm Aorta at Sinotubular Diameter 3.1 cm M-MODE LV Diastolic Diameter MM 3.2 cm 4.2 - 5.9 / 3.9 - 5.3 cm LV Systolic Diameter MM 1.6 cm LV Ejection Fraction MM Teich 81.8 % IVS Diastolic Thickness MM 1.1 cm 0.6 - 1.0 / 0.6 - 0.9 cm IVS Systolic Thickness MM 1.7 cm LVPW Diastolic Thickness MM 1.1 cm 0.6 - 1.0 / 0.6 - 0.9 cm LVPW Systolic Thickness MM 1.2 cm Aortic Annulus Diameter 4.4 cm LA Ao Ratio MM 1.1 MV E Point Septal Separation 0.8 cm DOPPLER AV Peak Velocity 132.0 cm/s LVOT Peak Velocity 82.0 cm/s AV Area Cont Eq vti 2.4 cm squared AV Area Cont Eq pk 2.1 cm squared MV Area PHT 3.3 cm squared Mitral E to A Ratio 0.7 MV E' Velocity 28.5 cm/s Mitral E to MV E' Ratio 5.7 Mitral E to LV E' Lateral Ratio 6.2 Mitral E to LV E' Septal Ratio 5.3 TR Peak Velocity 177.5 cm/s TR Peak Gradient 12.6 mmHg Right Atrial Pressure 3.0 mmHg Pulmonary Artery Systolic Pressu 15.6 mmHg FINDINGS Left Ventricle Normal left ventricular cavity size. Normal left ventricular systolic function. No regional wall motion abnormalities. Left ventricular ejection fraction is estimated at 60 %. Grade I/IV diastolic dysfunction (abnormal relaxation filling pattern), normal to mildly elevated filling pressures. Right Ventricle The right ventricle is normal in size and function. Right Atrium The right atrium is normal in size. Left Atrium The left atrium is normal in size. Mitral Valve Structurally normal mitral valve without significant stenosis or prolapse. There is no mitral regurgitation. Aortic Valve Structurally normal aortic valve without significant sclerosis or stenosis. There is no aortic regurgitation. Tricuspid Valve Structurally normal tricuspid valve without significant stenosis or regurgitation. Pulmonary artery systolic pressure is normal. Pulmonic Valve Structurally normal pulmonic valve without significant stenosis. There is no pulmonic regurgitation. Pericardium Normal pericardium without effusion. Aorta Normal ascending aorta dimension. CONCLUSIONS 1-Normal left ventricular cavity size. Normal left ventricular systolic function. No regional wall motion abnormalities. Left ventricular ejection fraction is estimated at 60 %. Grade I/IV diastolic dysfunction (abnormal relaxation filling pattern), normal to mildly elevated filling pressures. 2-No significant valve abnormalities. 3-There is no pericardial effusion. 4-Pulmonary artery systolic pressure is within normal limits. 5-Right atrial pressure is around 5 mm of mercury. 6-No significant change since the prior echocardiogram study of 01/02/2016. Janae Vogt MD (Electronically Signed) Final Date: 05 March 2020 17:59 S
[2020-03-05] MEDS: aspirin 81 mg EC Tablet PO (08:24)
--- NOTE | 2020-03-05 09:33 | PC.CHAP ---
Pastoral Care Encounter/Spiritual Assessment Type of Contact [] Declined continuous improvement consultant visit [] Patient/Family/Request visit [] Outpatient visit [] Follow-up visit [] Physician referral [] Code/Alert [] Routine visit [] Staff referral [] Actively dying [] Patient sleeping [] Family support [] [] Out of room [] Palliative care [] [] Receiving care in room [] Pre-surgical visit [] Trauma [] Long length of stay [x] ICU visit [] Other: Relational/Emotional Strength [] Patient feels connected with others/family/visitors/staff [] Distress [] Loneliness/isolation [] Abandonment Spirituality of Patient [] Person of [place] [] Attends Moravian of their [place] [] Believes in Prayer [] Reads Bible or Caodaism materials [] There are Spiritual issues to be addressed Radio Frequency Design Engineer Interventions [x] Prayer [] Active listening [] Non-anxious presence [] Spiritual/emotional support [] Crisis/trauma care [] Spiritual counseling [] Bereavement support [] Provided bereavement packet [] Provided Bible/devotional materials [] Provided toy/stuffed animal, coloring book to patient or family member [] Provided Communion [] Anointing/[place] [] Salvation [x] Completed spiritual assessment [] Other: Impact on Illness or Injury [] Angry [] Fearful [] Anxious [] Often cries [] Exhaustion [] Unable to work [] Unable to attend yarsanism [] Unable to walk/stand [] Unable to read [] Unable to drive [] Unable to eat/drink [] Unable to sleep [] Unable to be with family [] Patient intubated [] Other: Summary Time spent with patient
--- NOTE | 2020-03-05 14:00 | MR_ITS ---
WS: [id number] MRI BRAIN WITH AND WITHOUT CONTRAST HISTORY: 24 hr post TPA, right-sided weakness for 2 days. COMPARISON: 09/08/[address] 03/04/2020 TECHNIQUE: Multiplanar imaging performed through the brain with Prohance 17 ml's IV. Acute infarct is noted in the LEFT chowdary radiata. This is a small lacunar type infarct without hemor rhage. No additional diffusion abnormalities. There are additional prior infarcts involving the RIGHT occipital and RIGHT frontotemporal lobes. Gliosis surrounding the RIGHT frontotemporal infarct. Othe rwise very mild periventricular ischemic type changes. No hemorrhage. Ventricles and extra-axial spaces are normal. Clivus and pituitary gland are normal. Visualized posterior fossa and brainstem are also normal. Postcontrast images are negative for masses or vascular malformations. Dural venous sinuses are normal. Paranasal sinuses: Well aerated with no significant disease. Mastoid air cells: Normal. Calvarium and scalp: Normal. MR/MR head wo/w con [id number] IMPRESSION: 1. Acute LEFT chowdary radiata lacunar infarct without hemorrhage. 2. Prior large territory infarcts involving the RIGHT occipital lobe in the RI GHT frontotemporal region. 3. No enhancing masses.
[2020-03-05] MEDS: acetaminophen 500 mg Tablet 650 MG PO ×2 (14:17→21:13)
--- NOTE | 2020-03-05 18:14 | P.PN_ITS ---
Vitals/I&O/Wt Last Vital Signs Temp 98.4 F 03/05/20 00:00 Pulse 87 03/05/20 14:00 Resp 22 H 03/05/20 02:00 BP 131/90 03/05/20 02:00 Pulse Ox 94 03/05/20 02:00 03/05/20 03/05/20 03/05/20 06:59 14:59 22:59 Intake Total 591 / 591 700 / 700 Output Total 800 / 800 Balance -209 / -209 700 / 700 Weight last 48 hrs Weight 88.451 kg Physical Exam Narrative: EXAM NARRATIVE: General: Alert, Awake, Mild distress due to right sided weakness HEENT : Grossly unremarkable CVS : RRR, no obvious murmurs, rubs or gallops CHEST : CTABL ABD: Soft, NT,ND Ext : No edema Neuro: CN 2-12 intact, MS 5/5 bilaterally No deficits on left, speech normal, sensation intact Data : 03/04/20 10:27 03/04/20 10:27 A&P Assessment and plan (1) Left acute arterial ischemic stroke, MCA (middle cerebral artery): Status: Acute (2) Hypertension: Status: Acute Qualifiers: Hypertension type: essential hypertension Qualified Code(s): I10 - Essential (primary) hypertension (3) Hypercholesterolemia: Status: Acute (4) Hx TIA/stroke w/o resid: Status: Acute Acute CVA with Dysarthria/R-sided weakness s/p TPA Hx of MCA (2008) and left subcortical lacunar infarct(2012) NIH on admission - 7 - CT head/CTA head and Neck - No acute hemorrhage or vascular stenosis S/p TPA infusion Continue neuro-checks/NIH monitoring as ordered BP goal : < 180/105 Labatalol 10 mg IV q8hr PRN Start asa 81 mg po daily > 24hr Post TPA - ordered Lipitor 80 mg PO QHS- > decrease to 40 mg PO qhs MRI Head w/wo contrast -> Acute LEFT chowdary radiata lacunar infarct without hemorrhage. ECHO - Grade 1 DD, No valvular abnormalities ST/PT/OT consulted Monitor on telemetry May need NEY/Loop as per neurology recommendation Will d/w cardiology Hypertension On norvasc at home - Resume 5 mg PO daily Hypercholesterolemia Statin as note above Urolithiasis with possible left UPJ stenosis Noted in recent hospitalization 02/21/20 Planned for outpatient urology consult Tx with abx for suspected UTI GI ppx Pepcid 20 mg IV BID DVT ppx SCDS only Start heparin 48hr post TPA Attestations Medical Necessity Statement*: require further hospitalization for management of acute CVA. Coding Level of Care Code Acute Track Repair Supervisor for Chg Fwd Diagnoses Left acute arterial ischemic stroke, MCA (middle cerebral artery) I63.512 Hypertension I10 Hypertension type: essential hypertension Hypercholesterolemia E78.00 Hx TIA/stroke w/o resid Z86.73
[2020-03-05] MEDS: amlodipine 5 mg Tablet PO (20:07)
[2020-03-05] MEDS: atorvastatin 40 mg Tablet 80 MG PO (20:07)
[2020-03-06] VITALS (15 sets, daily range): BP systolic 118–164; BP diastolic 72–101; PULSE 61–89; RESP 12–24; TEMP 36.6; O2SAT 93–97
[2020-03-06 03:29] LABS: Basophils # 0.1 10^3/uL (0.0-0.1); Basophils % 0.7 %; Eosinophils # 0.3 10^3/uL (0.0-0.8); Eosinophils % 3.4 %; Hematocrit 41.9 % (42.0-52.0); Hemoglobin 14.1 g/dL (11.7-16.6); Lymphocytes # 1.1 10^3/uL (0.8-4.8); Lymphocytes % 13.2 %; Mean Corpuscular HGB Conc 33.7 g/dL (30.0-36.0); Mean Corpuscular Hemoglobin 31.9 pg (28.0-34.0); Mean Corpuscular Volume 94.8 fL (80-94); Mean Platelet Volume 9.1 fL (7.4-10.4); Monocytes # 0.7 10^3/uL (0.2-0.9); Monocytes % 8.3 %; Neutrophils # 6.17 10^3/uL (1.8-7.7); Nucleated Red Blood Cells % 0 %; Platelet Count 281 10^3/cmm (130-400); Red Blood Count 4.42 10^6/uL (4.1-5.3); Red Cell Distribution Width 12.4 % (12.1-15.1); White Blood Count 8.3 10^3/uL (4.0-10.0)
[2020-03-06 04:05] LABS: Estmated Average Glucose 120; Hemoglobin A1C 5.8 % (4.0-6.0)
[2020-03-06 04:12] LABS: Alanine Aminotransferase 34 U/L (0-41); Albumin Level 3.3 g/dL (3.5-5.2); Alkaline Phosphatase 167 IU/L (40-130); Aspartate Amino Transferase 26 U/L (0-40); Blood Urea Nitrogen 15 mg/dL (8-23); Calcium 9.1 mg/dL (8.5-10.5); Carbon Dioxide 29 mmol/L (22-29); Chloride 103 mmol/L (98-107); Globulin 2.7 g/dL (1.3-4.6); Glomerular Filtration Rate 66.2 mL/min (90-130); Glucose 107 mg/dL (65-115); Osmolality Calculated 289 mOsm/kg (285-295); Sodium 139 mmol/L (136-145); Total Bilirubin 0.4 mg/dL (0.15-1.2)
[2020-03-06] MEDS: amlodipine 5 mg Tablet PO (08:23)
[2020-03-06] MEDS: aspirin 81 mg EC Tablet PO (08:23)
--- NOTE | 2020-03-06 12:50 | PM.DCS ---
Discharge Providers Date of Admission: 03/04/20 19:46 Date of Discharge: March 06, 2020 Attending Provider at Admission: Lona Mitchell Attending Provider at Discharge: Lona Mitchell Primary Care Provider: Sandra Alba MD Diagnoses at Discharge Discharge Diagnosis (1) Left acute arterial ischemic stroke, MCA (middle cerebral artery): Status: Acute (2) Hypertension: Status: Acute Qualifiers: Hypertension type: essential hypertension Qualified Code(s): I10 - Essential (primary) hypertension (3) Hypercholesterolemia: Status: Acute (4) Hx TIA/stroke w/o resid: Status: Acute Reason for Visit Reason for Visit: STROKE Hospital Course Hospital Course 69-year-old male with a past medical history significant for arthritis, hypertension, hypercholesterolemia, retinal detachment affecting left monocular vision, recent hospitalization for partial small bowel obstruction and multiple prior strokes including right middle cerebral artery (2008) plus left subcortical lacunar infarct on aspirin 81 mg daily who presented ER with right-sided weakness. Patient stated symptoms started around 9 am while he was out working. code stroke was initiated on arrival. Neurology was consulted stat. Patients initial NIH score was 7. He was noted have dysarthria and right upper and lower extremity weakness. Patient was taken for CT head without contrast which did not show any evidence of acute bleed. Given onset of symptoms patient was started on TPA infusion. Shortly after his symptoms slightly improved particularly with dysarthria( no longer present at the time of my eval) and right lower extremity weakness. CTA head and neck was then performed which did not show any evidence of acute flow limiting stenosis. Laboratory workup performed in emergency room showed a WBC of 5.4, hemoglobin of 15.7, hematocrit of 46.9 and platelet count of 338.INR 1.0.Sodium 138, potassium 3.7, chloride 98, bicarb 27, BUN 19 and creatinine of 1.2. Glucose of 167.AST of 29, ALT of 42, alkaline phosphatase 185. Troponin T of 15 with a repeat at 120 minutes of 15.76. and 19.66 at 6:00 a.m.Urinalysis showed trace leukocyte esterase. Of note patient denies any recent fever, chills, nausea vomiting. Denies chest pain or shortness of breath. Also denied abdominal pain, diarrhea, constipation, dysuria, frequency or urgency. Patient was admitted to the hospital for neurological workup. Due to tPA infusion patient was monitored in intensive care unit. After 24 hours from tPA patient was started on aspirin 81 mg oral daily. Addition was started on high-dose statin with Lipitor 80 mg p.o. q.h.s. which after review of lipid panel was decreased to 40 mg daily. MRI was performed which showed acute left chowadry radiata lacunar infarct without any evidence of hemorrhage. Further neurological workup included echocardiogram which showed grade 1 diastolic dysfunction without any evidence of valvular heart heart disease. No regional wall motion abnormality was noted. Patient was seen by rehab services. NIH remained 0 at the time of discharge. It was recommended that the patient be seen by Cardiology for transesophageal echo in loop recorder as per previous recommendations in 2013 from neurological standpoint. Patient verbalized understanding and was discharged. Follow-up information for Cardiology was given. Physical Exam Narrative: EXAM NARRATIVE: General: Alert, Awake, Mild distress due to right sided weakness HEENT : Grossly unremarkable CVS : RRR, no obvious murmurs, rubs or gallops CHEST : CTABL ABD: Soft, NT,ND Ext : No edema Neuro: CN 2-12 intact, MS 5/5 bilaterally No deficits on left, speech normal, sensation intact Discharge Data Data Completed and Pending: Completed Studies During Hospitalization Category Date Time Status CT angio headneck * [id number] Stat Cat Scan 03/04/20 11:[address] head wo con* [id number] Urgent Cat Scan 03/04/20 Completed XR chest 1V amy ble [id number] Stat Exams 03/04/20 10:53 Completed MR head wo/w con [id number] Routine MRI 03/05/20 14:00 Completed CV echo complete* [id number] Routine Ultrasound 03/05/20 06:00 Completed Labs from last 24 hours 03/06/20 03/06/20 03/06/20 03:17 03:17 03:17 WBC 8.3 RBC 4.42 Hgb 14.1 Hct 41.9 L MCV 94.8 H MCH 31.9 MCHC 33.7 RDW 12.4 Plt Count 281 MPV 9.1 Neut % (Auto) 74.0 Lymph % (Auto) 13.2 Tama % (Auto) 8.3 Eos % (Auto) 3.4 Baso % (Auto) 0.7 Neut # (Auto) 6.17 Lymph # (Auto) 1.1 Tama # (Auto) 0.7 Eos # (Auto) 0.3 Baso # (Auto) 0.1 Nucleated RBC % (a uto) 0 Nucleated RBCs # 0.0 Sodium 139 Potassium 4.0 Chloride 103 Carbon Dioxide 29 Anion Gap 11.0 BUN 15 Creatinine 1.1 GFR Calculation 66.2 L Glucose 107 Estimat Average Gl ucose 120 Hemoglobin A1c 5.8 Calculated Osmolal ity 289 Calcium 9.1 Total Bilirubin 0.4 AST 26 ALT 34 Alkaline Phosphata se 167 H Total Protein 6.0 L Albumin 3.3 L Globulin 2.7 Vitals: Last Vital Signs Temp 98.4 F 03/05/20 00:00 Pulse 71 03/06/20 06:00 Resp 19 H 03/06/20 06:00 BP 141/84 03/06/20 06:00 Pulse Ox 97 03/06/20 03:15 Discharge Plan Discharge Patient Disposition: Home Condition: Stable Prescriptions: New atorvastatin 40 mg Tablet 40 mg PO BEDTIME Qty: 30 RF: 0 Continued sildenafil [Viagra] 100 mg tablet 100 mg PO DAILY PRN (Reason: sexual activity) Qty: 10 RF: 1 amlodipine 5 mg tablet 5 mg PO DAILY Qty: 30 RF: 1 Acid Detailer Furniture Tabs 1 tab PO DAILY PRN (Reason: Heartburn) RF: 0 multivitamin Tablet 1 tab PO QAM RF: 0 aspirin 81 mg Tablet,Delayed Release (Dr/Ec) 81 mg PO QAM RF: 0 lorazepam 1 mg tablet 1 mg PO BEDTIME PRN (Reason: Anxiety) RF: 0 melatonin 10 mg Tablet 20 mg PO BEDTIME RF: 0 turmeric 400 mg Capsule 400 mg PO QAM RF: 0 Discontinued red yeast rice 600 mg Tablet 600 mg PO QAM RF: 0 Discharge Orders: Discharge Order (Routine); Ordered 03/06/20 Ordered By: Lona Mitchell Referrals: Sandra Alba MD [Primary Care Provider] - 4-7 days (This appointment has been scheduled for the following date of Tuesday at time of 10:00 am at [facility] ) Ree Gee MD [Physician] - 1 week (Eval for NEY/Loop recorder This appointment has been scheduled at [facility] services [phone] with for follow up and to evaluate . this scheduled date for March 19, 2020 at time of 09:30 ) Discharge Diet: Cardiac Discharge Activity: Resume usual activity Patient Instructions: Atorvastatin (By mouth), Heart Healthy Diet (DC), Ischemic Stroke (DC), Stroke Stoplight Activity Restrictions/Additional Instructions: Return to ER if any any recurrence of symptoms. follow up with PCP and cardiology for NEY/Loop recorder. Discharge Attestations Time Spent in Discharge Care*: greater than 30 min Specific Discharge Activities: educating patient, educating and/or supporting family/caregiver, discussing with pcp/other providers, discussing with telehealth case manager/social workers/dc planners, documenting/other paperwork and evaluating patient/reviewing data Status at Discharge: Cognitive status at discharge: cognitively intact, Behavioral status at discharge: cooperative, Functional status at discharge: independent ambulation Overall status at discharge: patient is back to baseline Quality Metrics Clinical Quality Measures During this hospital stay, did patient experience: Stroke Contraindication to Antithrombotic: Antithrombotic prescribed Contraindication to Anticoagulation: Overlap treatment not indicated Contraindication to Statin: Statin prescribed Contraindication to antithrombotic day 2: Antithrombotic given Contraindication to tPA: tPA given Reason stroke education not provided: Stroke education provided to patient, Stroke education refused by patient, Stroke education refused by family/guardian and Stroke education provided to family/guardian Rehab services assessed: Activities of daily living assessment, Rehabilitation assessment, Physical therapy, Occupational therapy and Speech therapy Reason rehab assessment not done: Rehab assessment done Coding Level of Care Code Acute 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
== END 2020-03-06 13:30 | disposition home or self-care (01) | DRG 62 ==
LOC: ER 18:07 → ER IP 19:48 → ICU 21:27
PROVIDERS: Admitting Provider Hospitalist; Emergency Provider Student in an Organized Health Care Education/Training Program; PCP Family Medicine; Visit Provider Hospitalist
DX: I63.512 Cerebral infarction due to unspecified occlusion or stenosis of left middle cerebral artery (principal); G81.91 Hemiplegia, unspecified affecting right dominant side; R47.1 Dysarthria and anarthria; R29.707 NIHSS score 7; Z86.73 Personal history of transient ischemic attack (TIA), and cerebral infarction without residual deficits; M19.90 Unspecified osteoarthritis, unspecified site; I10 Essential (primary) hypertension; E78.00 Pure hypercholesterolemia, unspecified; Z79.82 Long term (current) use of aspirin; N20.9 Urinary calculus, unspecified
CPT/HCPCS: 12345; 36415; 36416; 70450; 70496; 70498; 70553; 71045; 80048; 80053; 80061; 81000; 81001; 82962; 83036; 84484; 85025; 85610; 85730; 92523; 92610; 93005; 93306; 97110; 97161; 97165; 97535; 99284; A9579; J2997; Q9967

== ENCOUNTER 2020-11-06 20:00 | Outpatient (CLI) | payer MEDICARE, OTHER, SELFPAY | END 2020-11-06 20:01 | disposition home or self-care (01) | LOC: SLEEP 11-07 10:39 | PROVIDERS: PCP Family Medicine; Visit Provider Psychiatry & Neurology Neurology | DX: G47.00 Insomnia, unspecified (principal); R06.83 Snoring; R53.83 Other fatigue; G47.33 Obstructive sleep apnea (adult) (pediatric) | CPT/HCPCS: 95810 ==

== ENCOUNTER → 2021-12-24 09:05 | Outpatient (BNVA) | payer MEDICARE, OTHER, SELFPAY | PROVIDERS: PCP Family Medicine; Visit Provider Family Medicine | DX: E78.00 Pure hypercholesterolemia, unspecified (principal); R97.20 Elevated prostate specific antigen [PSA]; I10 Essential (primary) hypertension; F32.A Depression, unspecified; R73.9 Hyperglycemia, unspecified; I63.512 Cerebral infarction due to unspecified occlusion or stenosis of left middle cerebral artery | CPT/HCPCS: 80053; 80061; 83036; 84153; 85025 ==

== ENCOUNTER 2022-01-04 11:09 | Outpatient (CLI) | payer MEDICARE, OTHER, SELFPAY ==
[2022-01-04 12:19] LABS: Prostate Specific AG Urology 14.44 ng/mL (0-4)
== END 2022-01-04 11:10 | disposition home or self-care (01) ==
PROVIDERS: PCP Family Medicine; Visit Provider Urology
DX: R97.20 Elevated prostate specific antigen [PSA] (principal)
CPT/HCPCS: 36415; 84153

== ENCOUNTER → 2022-01-06 14:53 | Outpatient (BNVA) | payer MEDICARE, OTHER, SELFPAY | PROVIDERS: PCP Family Medicine; Visit Provider Urology | DX: N30.20 Other chronic cystitis without hematuria (principal); R97.20 Elevated prostate specific antigen [PSA] | CPT/HCPCS: 51741; 51798; 99203 ==

== ENCOUNTER 2022-03-03 10:20 | Outpatient (CLI) | payer MEDICARE, OTHER, SELFPAY ==
[2022-03-03 11:14] LABS: Prostate Specific AG Urology 21.43 ng/mL (0-4)
== END 2022-03-03 10:21 | disposition home or self-care (01) ==
LOC: LAB 10:25
PROVIDERS: PCP Family Medicine; Visit Provider Urology
DX: R97.20 Elevated prostate specific antigen [PSA] (principal)
CPT/HCPCS: 36415; 84153

== ENCOUNTER → 2022-03-08 14:17 | Outpatient (BNVA) | payer MEDICARE, OTHER, SELFPAY | PROVIDERS: PCP Family Medicine; Visit Provider Urology | DX: R97.20 Elevated prostate specific antigen [PSA] (principal); N39.0 Urinary tract infection, site not specified | CPT/HCPCS: 81003; 87086; 99213 ==

== ENCOUNTER 2022-03-30 06:00 | Outpatient (RCR) | payer MEDICARE, OTHER, SELFPAY | END 2022-04-13 23:59 | disposition home or self-care (01) | LOC: SPT 06:00 | PROVIDERS: PCP Family Medicine; Visit Provider Orthopaedic Surgery | DX: M12.812 Other specific arthropathies, not elsewhere classified, left shoulder (principal) | CPT/HCPCS: 97110; 97161 ==

== ENCOUNTER 2022-04-14 06:00 | Outpatient (RCR) | payer MEDICARE, OTHER, SELFPAY | END 2022-05-14 23:59 | disposition home or self-care (01) | LOC: SPT 06:00 | PROVIDERS: PCP Family Medicine; Visit Provider Orthopaedic Surgery | DX: M12.812 Other specific arthropathies, not elsewhere classified, left shoulder (principal) | CPT/HCPCS: 97110 ==

== ENCOUNTER → 2022-04-20 13:44 | Outpatient (BNVA) | payer MEDICARE, OTHER, SELFPAY | PROVIDERS: PCP Family Medicine; Visit Provider Family Medicine | DX: N39.0 Urinary tract infection, site not specified (principal) | CPT/HCPCS: 81003; 87086 ==

== ENCOUNTER → 2022-04-21 10:17 | Outpatient (BNVA) | payer MEDICARE, OTHER, SELFPAY | PROVIDERS: PCP Family Medicine; Visit Provider Family Medicine | DX: N39.0 Urinary tract infection, site not specified (principal); I10 Essential (primary) hypertension | CPT/HCPCS: 80048 ==

== ENCOUNTER 2022-05-15 06:00 | Outpatient (RCR) | payer MEDICARE, OTHER, SELFPAY | END 2022-06-13 23:59 | disposition home or self-care (01) | LOC: SPT 06:00 | PROVIDERS: PCP Family Medicine; Visit Provider Orthopaedic Surgery | DX: M12.812 Other specific arthropathies, not elsewhere classified, left shoulder (principal) | CPT/HCPCS: 97110 ==

== ENCOUNTER 2022-06-14 06:00 | Outpatient (RCR) | payer MEDICARE, OTHER, SELFPAY | END 2022-06-26 23:59 | disposition home or self-care (01) | LOC: SPT 06:00 | PROVIDERS: PCP Family Medicine; Visit Provider Orthopaedic Surgery | DX: M19.112 Post-traumatic osteoarthritis, left shoulder (principal) | CPT/HCPCS: 97110 ==

== ENCOUNTER → 2022-11-18 08:44 | Outpatient (BNVA) | payer MEDICARE, OTHER, SELFPAY | PROVIDERS: PCP Family Medicine; Visit Provider Family Medicine | DX: N39.0 Urinary tract infection, site not specified (principal) | CPT/HCPCS: 81000; 87086 ==

== ENCOUNTER → 2022-12-28 08:54 | Outpatient (BNVA) | payer MEDICARE, OTHER, SELFPAY | PROVIDERS: PCP Family Medicine; Visit Provider Family Medicine | DX: M54.50 Low back pain, unspecified (principal); R53.83 Other fatigue; R97.20 Elevated prostate specific antigen [PSA]; I10 Essential (primary) hypertension; Z79.899 Other long term (current) drug therapy | CPT/HCPCS: 83540; 84443; 85025 ==

== ENCOUNTER 2022-12-30 09:46 | Outpatient (CLI) | payer MEDICARE, OTHER, SELFPAY ==
--- NOTE | 2022-12-30 09:55 | XR_ITS ---
WS: [id number] Exam: XR lumbar spine 2-3V* [id number] Date/Time of Exam: 12/30/2022 10:04 AM Reason For Exam: back pain No fracture or dislocation. Advanced disc degeneration at L5-S1 with anterior osteophytes. Spondylosi s of the remaining lumbar vertebra. Facet DJD at L4-5 and L5-S1. Mild levoscoliosis. Mild degenerativ e retrolisthesis of T12 on L1. IMPRESSION: 1. No fracture or malalignment. 2. Degenerative changes as detailed above. Mild scoliosis.
== END 2022-12-30 09:47 | disposition home or self-care (01) ==
PROVIDERS: PCP Family Medicine; Visit Provider Family Medicine
DX: M51.36 Other intervertebral disc degeneration, lumbar region (principal); M41.9 Scoliosis, unspecified; M47.816 Spondylosis without myelopathy or radiculopathy, lumbar region
CPT/HCPCS: 72100

== ENCOUNTER → 2023-03-08 11:46 | Outpatient (BNVA) | payer MEDICARE, OTHER, SELFPAY | PROVIDERS: PCP Family Medicine; Visit Provider Family Medicine | DX: R97.20 Elevated prostate specific antigen [PSA] (principal); K21.9 Gastro-esophageal reflux disease without esophagitis | CPT/HCPCS: 84153 ==

== ENCOUNTER → 2023-05-31 09:17 | Outpatient (BNVA) | payer MEDICARE, OTHER, SELFPAY | PROVIDERS: PCP Family Medicine; Visit Provider Family Medicine | DX: R97.20 Elevated prostate specific antigen [PSA] (principal) | CPT/HCPCS: 84153 ==

== ENCOUNTER → 2023-06-20 10:30 | Outpatient (BNVA) | payer MEDICARE, OTHER, SELFPAY | PROVIDERS: PCP Family Medicine; Visit Provider Family Medicine | DX: N39.0 Urinary tract infection, site not specified (principal) | CPT/HCPCS: 87086 ==

== ENCOUNTER 2023-08-23 12:37 | Outpatient (CLI) | payer MEDICARE, OTHER, SELFPAY ==
--- NOTE | 2023-08-23 13:00 | MR_ITS ---
WS: [id number] MRI THORACIC SPINE WITHOUT CONTRAST TECHNIQUE: Sagittal T1, T2 and STIR imaging. Axial T2 imaging. Noncontrast imaging obtained. CLINICAL INFORMATION: chronic back pain COMPARISON: None. FINDINGS: Mild thoracic curve. Mild thoracic kyphosis. No acute compression fractures. No high-grade central ca nal stenosis. Cord signal is normal. Moderate spondylitic changes thoracic spine. Mild bilateral bony foraminal narrowing T7-T8, T8-T9, severe RIGHT T10-11, and moderate RIGHT T11-12. Facet synovitis with a small amount of edema T10-11. No significant central canal stenosis. Moderate facet arthropathy lower thoracic spine. Normal calibe r descending thoracic aorta partially visualized. Small esophageal hiatal hernia. Adrenal glands are normal. Normal paravertebral soft tissues. MR/MR thoracic spin wo con* [id number] IMPRESSION: 1. Moderate spondylitic changes thoracic spine with mild thoracic curve and mi ld thoracic kyphosis. 2. No acute compression fractures. No significant central canal stenosis. 3. Severe RIGHT T10-11 foraminal narrowing. Moderate RIGHT T11-12 4. Moderate facet arthropathy lower thoracic spine worse at T10-11 with a smal l amount of facet edema. 5. Small esophageal hernia. 6. Shallow central protrusions in the upper thoracic spine without significant central canal stenosis.
== END 2023-08-23 12:38 | disposition home or self-care (01) ==
LOC: RAD 12:37
PROVIDERS: PCP Family Medicine; Visit Provider Family Medicine
DX: M54.9 Dorsalgia, unspecified (principal); G89.29 Other chronic pain; K44.9 Diaphragmatic hernia without obstruction or gangrene; M47.814 Spondylosis without myelopathy or radiculopathy, thoracic region
CPT/HCPCS: 72146

== ENCOUNTER → 2023-08-31 14:07 | Outpatient (BNVA) | payer MEDICARE, OTHER, SELFPAY | PROVIDERS: PCP Family Medicine; Visit Provider Family Medicine | DX: R97.20 Elevated prostate specific antigen [PSA] (principal) | CPT/HCPCS: 84153 ==

== ENCOUNTER 2023-09-06 12:14 | Emergency (ER) | payer MEDICARE, OTHER, SELFPAY ==
[2023-09-06 12:24] VITALS: BP 132/92; PULSE 77; TEMP 36.7; O2SAT 97; BMI 25.1
--- NOTE | 2023-09-06 12:43 | ED_ITS ---
HPI - Neck Pain/Injury General: Chief Complaint: Neck Pain/Injury Stated Complaint: right side neck pain Time Seen by Provider: 09/06/23 12:32 Source: patient Mode of arrival: ambulatory Limitations: no limitations History of Present Illness: 73-year-old male states been having righ t-sided neck pain for the last 3 days. States it starts at the base of the skull and goes to his right shoulder its mu ch worse with palpation along with movement. He denies any headache denies any injuries had no vomiting or diarrhea denies any chest pain. Associated symptoms: Denies headache(s) or nausea Review of Systems Const: Denies: fever(s), chills, body aches or change in appetite ENMT: Denies: throat pain or dental pain Card: Denies: chest pain Resp: Denies: dyspnea GI: Denies: abdominal pain, nausea, vomiting or diarrhea : Denies: dysuria Musc: Reports: neck pain; Denies: back pain Skin/Breast: Denies: rash Neuro: Denies: headache(s) PFSH ED PFSH: Medical History Depression History of nonmelanoma skin cancer Acute gastroenteritis Resolved UTI (urinary tract infection) Resolved Stenosis of ureteropelvic junction (UPJ) Nephrolithiasis Acute kidney injury Improving Mucosal abnormality of stomach Enteritis Arthritis Incomplete tear of left rotator cuff History of stroke History of cataract Cystitis Small bowel obstruction Resolved Hypertension Surgical History History of arthroscopic surgery of shoulder History of femoral hernia repair History of vasectomy Family History Father , AT AGE 89 Pneumonia Mother , AT AGE 62 Suicide Other No significant family history Social History Smoking and tobacco/nicotine status: unknown if used tobacco/nicotine Alcohol intake: never Substance/Drug Use: never Lives independently: Yes Marital status: Current occupational status: retired Physical Exam Const: COMMON NORMALS: no acute distress, patient oriented x3 and healthy appearing HENMT: COMMON NORMALS: normocephalic and atraumatic HEAD & SCALP: normocephalic and atraumatic Eye: COMMON NORMALS: conjunctivae normal CONJUNCTIVA: Yes conjunctivae normal Neck/C-Spine: OTHER: Tenderness over right trapezius muscle pain with movement looking right and left no midline tenderness Chest: COMMONS NORMALS: normal inspection of the chest Resp: COMMON NORMALS: normal respiratory effort, No retractions, No use of accessory muscles and clear to auscultation bilaterally AUSCULTATION: clear to auscultation bilaterally Cardio: COMMON NORMALS: regular rate, regular rhythm and No murmurs present (Cardio) RATE: regular rate RHYTHM: regular rhythm Extremity: COMMON NORMALS: normal to inspection and full ROM Neuro: COMMON NORMALS: patient oriented x3, moves all extremities and no focal motor deficits Psych: COMMON NORMALS: mental status grossly normal, Normal thought process present and cooperative THOUGHT PROCESS: Normal thought process present Skin: COMMON NORMALS: no rashes or lesions noted and no wounds GENERAL SKIN EXAM: no rashes or lesions noted Course Vital Signs: Vital signs: Vital Signs Temperature 98.1 F 09/06/23 12:24 Pulse Rate 77 09/06/23 12:24 Blood Pressure 132/92 09/06/23 12:24 Pulse Oximetry 97 09/06/23 12:24 Oxygen Delivery Me thod Room Air 09/06/23 12:24 MDM - Neck Pain/Injury Medical Decision Making Patient presents here with neck pain is likely muscular in origin he has no signs of carotid dissection he is point tender on exam along with trapezius has pain with range of motion we will place him on anti-inflammatories muscle laxer and he is to ice and rest he is to follow-up with PCP and return if worsening. Medical Records I reviewed the patient's medical records. Lab Data I reviewed the patient's lab results. No radiology studies performed this visit EKG Data EKG 1: I personally reviewed and interpreted this EKG as follows: EKG interpretation date: 09/06/23 EKG interpretation time: 12:23 Interpretation: nsr hr [address] or t wave abnormalities qrs 108 qtc 416 Discharge Plan Discharge Patient Disposition: Home Clinical Impression: Strain of neck muscle Condition: Stable Prescriptions: New methocarbamol 750 mg tablet 750 mg PO Q6H PRN (Reason: spasms) Qty: 20 0RF Naprosyn 500 mg tablet 500 mg PO BID PRN (Reason: pain) Qty: 20 0RF No Action sulfamethoxazole-trimethoprim 800-160 mg tablet 1 tab PO BID Qty: 60 2RF amlodipine 5 mg tablet See Rx Instructions .ROUTE .COMPLEX Qty: 180 3RF Dose Instruction: TAKE 1 TABLET BY MOUTH TWICE DAILY FOR BLOOD PRESSURE Rx Instructions: TAKE 1 TABLET BY MOUTH TWICE DAILY FOR BLOOD PRESSURE sildenafil [Viagra] 100 mg tablet 100 mg PO DAILY PRN (Reason: sexual activity) Qty: 30 4RF Rx Instructions: administer 30 minutes to 4 hours before activity. Can initiate at 1/2 tablet omeprazole 20 mg capsule,delayed release(DR/EC) See Rx Instructions .ROUTE .COMPLEX Qty: 180 3RF Dose Instruction: TAKE 1 CAPSULE BY MOUTH TWICE DAILY Rx Instructions: TAKE 1 CAPSULE BY MOUTH TWICE DAILY losartan 50 mg tablet 50 mg PO DAILY Qty: 90 3RF hydrocortisone acetate [Anusol-HC] 25 mg suppository 25 mg AK BID PRN (Reason: hemorrhoids) Qty: 12 1RF clonazepam 0.5 mg tablet 0.5 mg PO TID PRN (Reason: anxiety) Qty: 90 3RF Rx Instructions: . 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
[2023-09-06] MEDS: methocarbamol 750 mg Tablet 1500 MG PO (12:58)
[2023-09-06] MEDS: ketorolac 30 mg/mL INJ IM (12:59)
[2023-09-06] MEDS: HYDROcodone-acetaminophen 5-325 mg Tablet 1 TAB PO (13:01)
[2023-09-06 13:10] VITALS: BP 132/92; PULSE 77; TEMP 36.7; O2SAT 97
== END 2023-09-06 13:12 | disposition home or self-care (01) ==
PROVIDERS: Emergency Provider Emergency Medicine; PCP Family Medicine
DX: S16.1XXA Strain of muscle, fascia and tendon at neck level, initial encounter (principal); Z79.82 Long term (current) use of aspirin; I10 Essential (primary) hypertension; Z86.73 Personal history of transient ischemic attack (TIA), and cerebral infarction without residual deficits; X58.XXXA Exposure to other specified factors, initial encounter
CPT/HCPCS: 96372; 99284; J1885

== ENCOUNTER 2023-10-18 13:17 | Outpatient (CLI) | payer MEDICARE, OTHER, SELFPAY ==
--- NOTE | 2023-10-18 13:45 | MR_ITS ---
WS: [id number] MRI CERVICAL SPINE NONCONTRAST TECHNIQUE: Sagittal T1, T2 and STIR imaging. Axial T2, gradient, and fiesta imaging. CLINICAL INFORMATION: neck pain COMPARISON: MRI 2009 FINDINGS: Straightening of the normal cervical lordosis. Moderate spondylotic changes. Cord signal is normal. D isc osteophyte protrusions at C3-C4 C4-C5 C5-C6 and C6-C7. Slight anterolisthesis C7 on T1. Small dis c protrusions in the upper thoracic spine at T1 and T2. Spondylitic changes have progressed since 200 9. Disc space narrowing has progressed at C4-C5 C5-C6 and C6-C7. Small disc protrusions in the upper thoracic spine are new compared to previous. C2-C3: Disc osteophyte complex with moderate facet arthropathy. Mild LEFT foraminal narrowing. Spinal canal is patent. Edema within the LEFT C2-3 articulating facets likely degenerative or inflammatory. C3-C4: Disc osteophyte complex with endplate ridging. Moderate facet arthropathy. Mild RIGHT greater than LEFT bony foraminal narrowing. C4-C5: Disc osteophyte complex with endplate ridging. Moderate facet arthropathy. Severe LEFT and mod erate RIGHT bony foraminal narrowing. Spinal canal is patent. C5-C6: Disc osteophyte complex with slight effacement of the ventral thecal sac. Severe RIGHT and mod erate LEFT bony foraminal narrowing. Mild facet arthropathy. C6-C7: Disc osteophyte complex with slight indentation of the cervical cord. Mild central canal steno sis. Moderate to severe LEFT and mild RIGHT bony foraminal narrowing. Mild facet arthropathy. C7-T1: Slight anterolisthesis C7 on T1. Moderate LEFT and no significant RIGHT foraminal narrowing. S dexter canal is patent. Visualized brain stem structures: Normal. Prevertebral soft tissues: Normal. MR/MR cervical spin wo con* [id number] IMPRESSION: 1. Straightening of the normal cervical lordosis. Mild spondylitic changes. 2. Mild central canal stenosis with small disc osteophyte protrusions at C4-C5 C5-C6 and C6-C7 with slight contact of the cervical cord. Cord signal remains normal. 3. Multilevel moderate to severe bony foraminal narrowing worse at LEFT C4-C5, RIGHT C5-6, LEFT C6-C7. Moderate LEFT C7-T1 bony foraminal narrowing. 4. LEFT C2-3 facet synovitis with periarticular edema likely degenerative or i nflammatory. Recommend correlation with LEFT neck pain
== END 2023-10-18 13:18 | disposition home or self-care (01) ==
LOC: RAD 13:17
PROVIDERS: PCP Family Medicine; Visit Provider Family Medicine
DX: M47.892 Other spondylosis, cervical region (principal); M25.78 Osteophyte, vertebrae; M99.61 Osseous and subluxation stenosis of intervertebral foramina of cervical region; M53.82 Other specified dorsopathies, cervical region; M99.62 Osseous and subluxation stenosis of intervertebral foramina of thoracic region
CPT/HCPCS: 72141

== ENCOUNTER → 2023-11-03 10:18 | Outpatient (BNVA) | payer MEDICARE, OTHER, SELFPAY | PROVIDERS: PCP Family Medicine; Visit Provider Family Medicine | DX: N39.0 Urinary tract infection, site not specified (principal) | CPT/HCPCS: 81000 ==

== ENCOUNTER → 2023-11-04 08:35 | Outpatient (BNVA) | payer MEDICARE, OTHER, SELFPAY | PROVIDERS: PCP Family Medicine; Visit Provider Family Medicine | DX: N39.0 Urinary tract infection, site not specified (principal) | CPT/HCPCS: 87086 ==

== ENCOUNTER 2024-03-05 15:14 | Emergency (ER) | payer MEDICARE, OTHER, SELFPAY ==
[2024-03-05 15:16] VITALS: BP 143/88; PULSE 61; TEMP 36.7; O2SAT 99; BMI 25.1
--- NOTE | 2024-03-05 15:31 | XRR_ITS ---
PROCEDURE INFORMATION: Exam: XR Chest Exam date and time: 03/05/2024 3:44 PM Age: 73 years old Clinical indication: Other: CVA; Patient HX: HX of prostate cancer TECHNIQUE: Imaging protocol: Radiologic exam of the chest. Views: 1 view. COMPARISON: CR XR chest 1V portable [id number] 03/04/2020 10:58 AM FINDINGS: Lungs: No significant active pulmonary pathology. Pleural spaces: No pleural effusion. Heart/Mediastinum: Cardiomediastinal contours within normal limits. Vasculature: Tortuous thoracic aorta. Diaphragm: Mildly elevated right hemidiaphragm. Bones/joints: Mild degenerative change present in the spine. XR/XR chest 1V portable [id number] IMPRESSION: No acute pathology or significant interval change.
--- NOTE | 2024-03-05 15:31 | CT_ITS ---
WS: [id number] CT HEAD NONCONTRAST HISTORY: Symptoms of acute stroke TECHNIQUE: Contiguous axial imaging performed through the brain. Bone and soft tissue windows. Sagitt al and coronal reformats reviewed. All CT scans at [facility] use at least one of these dose optimization techniques: automated exposure control; mA and/or kV adjustment per patient size (includ es targeted exams where dose is matched to clinical indication); or iterative reconstruction. DLP: 1083.78 mGy COMPARISON: 03/04/2020 No acute intracranial hemorrhage, midline shift or mass effect. Moderate atrophy and small vessel disease. Prior large territory infarct with encephalomalacia involv ing the RIGHT occipital lobe and the posterior RIGHT frontal lobe. Similar to the prior study. No new area of sulcal effacement. Ventricles: Normal size with no hydrocephalus. No inferior displacement of the cerebellar tonsils. Paranasal sinuses: As visualized are clear. Mastoid air cells: Well pneumatized. Calvarium and scalp: Skull is intact with no soft tissue edema or swelling. CT/CT head thrombolytic [id number] IMPRESSION: 1. No acute intracranial hemorrhage or edema. 2. Remote RIGHT occipital lobe and RIGHT frontal lobe infarcts. 3. Notified Claudia Sanchez MD at 03/05/2024 3:45 PM.
[2024-03-05 15:37] LABS: Glucose Point of Care 70 mg/dL (70-110)
--- NOTE | 2024-03-05 15:41 | ECG_ITS ---
[facility] Test Date: 2024-03-05 Pat Name: Elodia Hagen Department: Room: Gender: Male Event Planning Manager: : 1950 Requested By: Claudia Sanchez Order Number: [id number] Reading MD: ZIYAD LOPEZ Measurements Intervals [place] Rate: 58 P: -19 NE: 162 QRS: -22 QRSD: 117 T: 27 QT: 422 QTc: 418 Interpretive Statements SINUS BRADYCARDIA BORDERLINE LEFT AXIS DEVIATION [QRS AXIS < -20] LOW QRS VOLTAGE IN PRECORDIAL LEADS [QRS DEFLECTION < 1.0 mV IN CHEST LEADS] MODERATE INTRAVENTRICULAR CONDUCTION DELAY [110+ ms QRS DURATION] Compared to ECG 03/04/2020 10:52:36 Low QRS voltage now present Intraventricular conduction delay now present Sinus rhythm no longer present Electronically Signed On 03-05-2024 23:11:01 DIRECTOR FAMILY by ZIYAD LOPEZ [email or web address]
--- NOTE | 2024-03-05 15:53 | ED_ITS ---
HPI - Dizziness 2 General: Chief Complaint: Dizziness Stated Complaint: loss of balance, dizzy,double visit post stoke pt Time Seen by Provider: 03/05/24 15:28 Source: patient Mode of arrival: ambulatory Limitations: no limitations History of Present Illness: HPI Narrative: 73-year-old male who states he had taken a nap today states he went to sleep around 230 when he woke up at 3 states that he felt like his vision was off and had a hard time walking states this lasted just a few minutes and is completely resolved. States has had a history of stroke in the past also history of eye issues he states he feels completely normal currently he denies any headache he is ambulatory without any difficulty. Associated symptoms: Denies chest pain, chills, headache(s), nausea or vomiting Related Data Home Medications Medication Instructions Recorded Confirmed multivitamin 1 tab PO QAM 02/21/20 03/05/24 aspirin 81 mg tablet,delayed 81 mg PO DAILY 06/11/20 03/05/24 release amlodipine 5 mg tablet 5 mg PO BID 03/05/24 03/05/24 omeprazole 20 mg capsule,delayed 20 mg PO BID 03/05/24 03/05/24 release silodosin 8 mg capsule 8 mg PO DAILY 03/05/24 03/05/24 Previous Rx's Medication Instructions Recorded tramadol 50 mg tablet 50 mg PO Q8H PRN pain #60 tabs 10/14/23 losartan 50 mg tablet 50 mg PO DAILY #90 tabs 01/25/24 clonazepam 0.5 mg tablet 0.5 mg PO TID PRN anxiety #90 tabs 02/09/24 Allergies Allergy/AdvReac Type Severity Reaction Status Date / Time Grmeoec-OYS-WaV Reductase AdvReac Intermediate Unknown Verified 03/05/24 15:23 Inhibitor Review of Systems 2 Const: Denies: fever(s), chills, body aches or change in appetite Eyes: Reports: blurry vision ENMT: Denies: throat pain or dental pain Card: Denies: chest pain Resp: Denies: dyspnea GI: Denies: abdominal pain, nausea, vomiting or diarrhea Musc: Denies: neck pain or back pain Skin/Breast: Denies: rash Neuro: Denies: headache(s) All/Imm: Denies: urticaria PFSH ED 2 PFSH: Medical History Depression History of nonmelanoma skin cancer Acute gastroenteritis Resolved UTI (urinary tract infection) Resolved Stenosis of ureteropelvic junction (UPJ) Nephrolithiasis Acute kidney injury Improving Mucosal abnormality of stomach Enteritis Arthritis Incomplete tear of left rotator cuff History of stroke History of cataract Cystitis Small bowel obstruction Resolved Hypertension Surgical History History of arthroscopic surgery of shoulder History of femoral hernia repair History of vasectomy Family History Father , AT AGE 89 Pneumonia Mother , AT AGE 62 Suicide Other No significant family history Social History Smoking and tobacco/nicotine status: unknown if used tobacco/nicotine Alcohol intake: never Substance/Drug Use: never Lives independently: Yes Marital status: Current occupational status: retired Physical Exam 2 Const: COMMON NORMALS: no acute distress, patient oriented x3 and healthy appearing HENMT: COMMON NORMALS: normocephalic and atraumatic HEAD & SCALP: n ormocephalic and atraumatic Eye: COMMON NORMALS: Equal, round and reactive pupils present and EOMs intact bilaterally PUPIL: Yes Equal, round and reactive pupils present Neck/C-Spine: COMMON NORMALS: full ROM and supple Chest: COMMONS NORMALS: normal inspection of the chest Resp: COMMON NORMALS: normal respiratory effort, No retractions, No use of accessory muscles and clear to auscultation bilaterally AUSCULTATION: clear to auscultation bilaterally Cardio: COMMON NORMALS: regular rate, regular rhythm and No murmurs present (Cardio) RATE: regular rate RHYTHM: regular rhythm GI: COMMON NORMALS: Normal to inspection, nondistended, normoactive bowel sounds present, Soft to palpation, non-tender and no masses PALPATION: Yes Soft to palpation Extremity: COMMON NORMALS: normal to inspection and full ROM Neuro: COMMON NORMALS: patient oriented x3, moves all extremities and no focal motor deficits CRANIAL NERVES: Yes CN normal except as noted SPEECH: s peech normal GAIT: Yes Normal gait present MOTOR EXAM: 5/5 motor strength present throughout Psych: COMMON NORMALS: mental status grossly normal, Normal thought process present and cooperative THOUGHT PROCESS: Normal thought process present Skin: COMMON NORMALS: no rashes or lesions noted and no wounds GENERAL SKIN EXAM: no rashes or lesions noted Course 2 Vital Signs: Vital signs: Vital Signs Temperature 98.0 F 03/05/24 15:16 Pulse Rate 61 03/05/24 15:16 Blood Pressure 143/88 03/05/24 15:16 Pulse Oximetry 99 03/05/24 15:16 Oxygen Delivery Me thod Room Air 03/05/24 15:16 MDM - Dizziness Medical Decision Making Patient presents here with brief episode of blurred vision he has been well- appearing here has no signs of stroke head CT is normal I did offer patient mission he states he feels improved like to go home I feel he is stable to go home he is to follow-up with PCP return if worsening he understands agrees to plan Medical Records I reviewed the patient's medical records. Lab Data I reviewed the patient's lab results. 03/05/24 16:10 03/05/24 16:10 Radiology Impressions Chest X-Ray 03/05/24 15:31 IMPRESSION: No acute pathology or significant interval change. Head CT 03/05/24 15:31 IMPRESSION: 1. No acute intracranial hemorrhage or edema. 2. Remote RIGHT occipital lobe and RIGHT frontal lobe infarcts. 3. Notified Claudia Sanchez MD at 03/05/2024 3:45 PM. Laboratory Results WBC 3.35 10^3/uL (3.29-11.43) 03/05/24 16:10 RBC 4.78 10^6/uL (3.85-5.65) 03/05/24 16:10 Hgb 15.60 g/dL (11.27-16.99) 03/05/24 16:10 Hct 46.1 % (37-53) 03/05/24 16:10 MCV 96.4 fl (82-101) 03/05/24 16:10 MCH 32.6 pg (27-33) 03/05/24 16:10 MCHC 33.8 g/dL (30-55) 03/05/24 16:10 RDW 12.8 % (12.1-15.1) 03/05/24 16:10 Plt Count 125 10^3/cmm (157-399) L 03/05/24 16:10 MPV 9.5 fL (7.4-10.4) 03/05/24 16:10 Neut % (Auto) 62.3 % 03/05/24 16:10 Lymph % (Auto) 23.9 % 03/05/24 16:10 [place] % (Auto) 9.0 % 03/05/24 16:10 Eos % (Auto) 3.6 % 03/05/24 16:10 Baso % (Auto) 0.9 % 03/05/24 16:10 Neut # (Auto) 2.09 10^3/uL (1.8-7.7) 03/05/24 16:10 Lymph # (Auto) 0.8 10^3/uL (0.8-4.8) 03/05/24 16:10 [place] # (Auto) 0.3 10^3/uL (0.2-0.9) 03/05/24 16:10 Eos # (Auto) 0.1 10^3/uL (0.0-0.8) 03/05/24 16:10 Baso # (Auto) 0.0 10^3/uL (0.0-0.1) 03/05/24 16:10 Nucleated RBC % (auto) 0 % 03/05/24 16:10 Nucleated RBCs # 0.0 /100WBC 03/05/24 16:10 PT 12.40 SECONDS (12.1-14.9) 03/05/24 16:10 INR 0.86 (0.8-1.2) 03/05/24 16:10 APTT 26.8 SECONDS (23.9-36.7) 03/05/24 16:10 Sodium 141 mmol/L (136-145) 03/05/24 16:10 Potassium 4.2 mmol/L (3.5-5.1) 03/05/24 16:10 Chloride 107 mmol/L (98-107) 03/05/24 16:10 Carbon Dioxide 25 mmol/L (22-29) 03/05/24 16:10 Anion Gap 13.2 (5-19) 03/05/24 16:10 BUN 15 mg/dL (8-23) 03/05/24 16:10 Creatinine 0.8 mg/dL (0.7-1.2) 03/05/24 16:10 GFR Calculation Not Reportable 03/05/24 16:10 Glucose 90 mg/dL (65-115) 03/05/24 16:10 POC Glucose 70 mg/dL (70-110) 03/05/24 15:34 Calculated Osmolality 292 mOsm/kg (285-295) 03/05/24 16:10 Calcium 9.3 mg/dL (8.5-10.5) 03/05/24 16:10 Total Bilirubin 0.7 mg/dL (0.15-1.2) 03/05/24 16:10 AST 35 U/L (0-40) 03/05/24 16:10 ALT 39 U/L (0-41) 03/05/24 16:10 Alkaline Phosphatase 120 U/L (40-130) 03/05/24 16:10 Total Protein 6.6 g/dL (6.6-8.7) 03/05/24 16:10 Albumin 4.0 g/dL (3.5-5.2) 03/05/24 16:10 Globulin 2.6 g/dL (1.3-4.6) 03/05/24 16:10 All radiology interpretation(s) finalized by discharge Discharge Plan Discharge Patient Disposition: Home Clinical Impression: Blurred vision Condition: Stable Prescriptions: No Action tramadol 50 mg tablet 50 mg PO Q8H PRN (Reason: pain) Qty: 60 5RF losartan 50 mg tablet 50 mg PO DAILY Qty: 90 3RF clonazepam 0.5 mg tablet 0.5 mg PO TID PRN (Reason: anxiety) Qty: 90 3RF Rx Instructions: . multivitamin Tablet 1 tab PO QAM aspirin 81 mg tablet,delayed release (DR/EC) 81 mg PO DAILY silodosin 8 mg capsule 8 mg PO DAILY amlodipine 5 mg tablet 5 mg PO BID Rx Instructions: TAKE 1 TABLET BY MOUTH TWICE DAILY FOR BLOOD PRESSURE omeprazole 20 mg capsule,delayed release(DR/EC) 20 mg PO BID Rx Instructions: TAKE 1 CAPSULE BY MOUTH TWICE DAILY Discharge Orders: Discharge ED (Routine); Ordered 03/05/24 Ordered By: Claudia Sanchez Referrals: Art Love MD [Primary Care Provider] - 4-7 days Discharge Diet: Advance as tolerated Discharge Activity: Resume usual activity Patient Instructions: Blurred Vision (ED) Coding Level of Care Code ED Population Health Manager for Chg Fwd NIH stroke score NIHSS Level Of Consciousness - 1a: 0 Level Of Consciousness Questions - 1b: Both Correct Level Of Consciousness Commands - 1c: Both Correct Best Gaze - 2: Normal Visual Cassidy - 3: No Visual Loss Facial Palsy - 4: Normal Motor Arm Right - 5: No Drift Motor Arm Left - 5: No Drift Motor Leg Right - 6: No Drift Motor Leg Left - 6: No Drift Limb Ataxia - 7: Absent Sensory - 8: Normal Best Language - 9: No Aphasia Dysarthia - 10: Normal Extinction And Inattention - 11: 0 Score Total Score: 0
[2024-03-05 16:20] LABS: Basophils % 0.9 %; Eosinophils # 0.1 10^3/uL (0.0-0.8); Eosinophils % 3.6 %; Hematocrit 46.1 % (37-53); Lymphocytes # 0.8 10^3/uL (0.8-4.8); Lymphocytes % 23.9 %; Mean Corpuscular HGB Conc 33.8 g/dL (30-55); Mean Corpuscular Hemoglobin 32.6 pg (27-33); Mean Corpuscular Volume 96.4 fl (82-101); Mean Platelet Volume 9.5 fL (7.4-10.4); Monocytes # 0.3 10^3/uL (0.2-0.9); Neutrophils # 2.09 10^3/uL (1.8-7.7); Neutrophils % 62.3 %; Nucleated Red Blood Cells % 0 %; Platelet Count 125 10^3/cmm (157-399); Red Blood Count 4.78 10^6/uL (3.85-5.65); Red Cell Distribution Width 12.8 % (12.1-15.1); White Blood Count 3.35 10^3/uL (3.29-11.43)
[2024-03-05 16:32] LABS: INR 0.86 (0.8-1.2); Partial Thromboplastin Time 26.8 SECONDS (23.9-36.7)
[2024-03-05 16:36] LABS: Alanine Aminotransferase 39 U/L (0-41); Alkaline Phosphatase 120 U/L (40-130); Anion Gap 13.2 (5-19); Aspartate Amino Transferase 35 U/L (0-40); Blood Urea Nitrogen 15 mg/dL (8-23); Calcium 9.3 mg/dL (8.5-10.5); Carbon Dioxide 25 mmol/L (22-29); Chloride 107 mmol/L (98-107); Creatinine Clr Calc Pharmacy 89.1903; Globulin 2.6 g/dL (1.3-4.6); Glucose 90 mg/dL (65-115); Osmolality Calculated 292 mOsm/kg (285-295); Potassium 4.2 mmol/L (3.5-5.1); Sodium 141 mmol/L (136-145); Total Bilirubin 0.7 mg/dL (0.15-1.2); Total Protein 6.6 g/dL (6.6-8.7)
[2024-03-05 17:11] VITALS: BP 131/85; PULSE 81; O2SAT 97
[2024-03-05 17:24] VITALS: BP 131/85; PULSE 72; O2SAT 95
== END 2024-03-05 17:25 | disposition home or self-care (01) ==
PROVIDERS: Emergency Provider Emergency Medicine; PCP Family Medicine
DX: H53.8 Other visual disturbances (principal); Z79.82 Long term (current) use of aspirin; I10 Essential (primary) hypertension; Z85.828 Personal history of other malignant neoplasm of skin
CPT/HCPCS: 36415; 36416; 70450; 71045; 80053; 82962; 85025; 85610; 85730; 93005; 99285

== ENCOUNTER 2024-03-28 08:34 | Outpatient (CLI) | payer MEDICARE, OTHER, SELFPAY ==
--- NOTE | 2024-03-28 08:30 | USCV_ITS ---
Elodia Hagen Age: 73 Gender: M : 1950 Exam Date: 03/28/2024 09:05 Ordering Phys: Art Love MD Technologist: ANAHY Exam Location: [facility] [place] Indication: cp cad BP: 135 / 75 HR: 66 Rhythm: Sinus Technical Quality: Adequate MEASUREMENTS (Male / Female) Normal Values 2D ECHO LV Diastolic Diameter PLAX 4.2 cm 4.2 - 5.9 / 3.9 - 5.3 cm IVS Diastolic Thickness 1.2 cm 0.6 - 1.0 / 0.6 - 0.9 cm IVS Systolic Thickness 1.7 cm LVPW Diastolic Thickness 1.5 cm 0.6 - 1.0 / 0.6 - 0.9 cm LVPW Systolic Thickness 1.9 cm LVOT Diameter 2.1 cm LV Ejection Fraction 2D Teich 60.2 % LV Ejection Fraction MOD 4C 69.5 % LV Ejection Fraction MOD 2C 69.2 % LV Ejection Fraction 2C AL 72.5 % LA Diameter 3.3 cm RA Systolic Volume 4C AL 31.5 ml RA Systolic Volume 4C MOD 31.2 ml LA Sys Volume AL 33.6 cm cubed LA Sys Volume Index AL 16.5 cm cubed/m squared Aorta at Sinotubular Diameter 3.4 cm IVC Diameter 1.7 cm M-MODE LA Ao Ratio MM 1.0 AV Cusp Separation MM 1.5 cm DOPPLER AV Peak Velocity 136.0 cm/s LVOT Peak Velocity 86.0 cm/s AV Area Cont Eq vti 2.9 cm squared AV Area Cont Eq pk 2.2 cm squared MV Peak Velocity 90.0 cm/s MV Area PHT 3.0 cm squared Mitral E to A Ratio 0.6 TV Peak Velocity 219.5 cm/s TR Peak Velocity 224.0 cm/s TR Peak Gradient 20.1 mmHg TV Peak E Velocity 61.0 cm/s PV Peak Velocity 111.0 cm/s FINDINGS Left Ventricle Normal left ventricular size and systolic function, EF 69%.. Mild left ventricular hypertrophy. No regional wall motion abnormalities. Grade I/IV diastolic dysfunction (abnormal relaxation filling pattern), normal to mildly elevated filling pressures. Right Ventricle The right ventricle is normal in size and function. Right Atrium The right atrium is normal in size. Left Atrium The left atrium is normal in size. Mitral Valve Trace mitral valve regurgitation. Aortic Valve Thickened aortic valve. Tricuspid Valve Trace tricuspid valve regurgitation. Estimated pulmonary artery peak systolic pressure within normal limits Pulmonic Valve No gross abnormalities noted Pericardium Normal pericardium without effusion. Aorta Normal ascending aorta dimension. IVC Normal inferior vena cava. CONCLUSIONS Normal left ventricular size and systolic function, EF 69%.. Mild left ventricular hypertrophy. No regional wall motion abnormalities. Grade I/IV diastolic dysfunction (abnormal relaxation filling pattern), normal to mildly elevated filling pressures. Trace mitral valve regurgitation. Trace tricuspid valve regurgitation. Estimated pulmonary artery peak systolic pressure within normal limits There is no pericardial effusion. There are no intracardiac masses. Compared to the study from 03/05/2020, there may not be a significant change Dr Cathy Rivero MD FAC (Electronically Signed) Final Date: 30 March 2024 16:16 S
== END 2024-03-28 08:35 | disposition home or self-care (01) ==
PROVIDERS: PCP Family Medicine; Visit Provider Family Medicine
DX: G45.9 Transient cerebral ischemic attack, unspecified (principal); R93.1 Abnormal findings on diagnostic imaging of heart and coronary circulation; I35.8 Other nonrheumatic aortic valve disorders
CPT/HCPCS: 93306; 93880

== ENCOUNTER → 2024-09-11 14:07 | Outpatient (BNVA) | payer MEDICARE, OTHER, SELFPAY | PROVIDERS: PCP Family Medicine; Visit Provider Family Medicine | DX: I10 Essential (primary) hypertension (principal); F32.A Depression, unspecified; E78.00 Pure hypercholesterolemia, unspecified; C61 Malignant neoplasm of prostate | CPT/HCPCS: 80053; 82607; 83880; 84443; 85025; 86140 ==

== ENCOUNTER 2024-09-15 19:04 | Emergency (ER) | payer MEDICARE, OTHER, SELFPAY ==
[2024-09-15] VITALS (7 sets, daily range): BP systolic 112–147; BP diastolic 80–101; PULSE 66–88; RESP 14–19; TEMP 36.8; O2SAT 92–96; BMI 25.7
--- NOTE | 2024-09-15 19:07 | ED_ITS ---
HPI - Altered Mental Status 2 General: Chief Complaint: Dizziness Stated Complaint: sob, dizzness, history of strokes Time Seen by Provider: 09/15/24 19:05 History of Present Illness: HPI: Patient states he has been more weak and experiencing intermittent shortness of breath when he attempts to exert himself over the last 3 weeks. He states that this was especially bothersome today when he was working outside. Was shoveling dirt and using a rake this afternoon caused him to feel profoundly weak. He was only at this activity for approximate 30 minutes and felt as though he could no longer continue. 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 Saw his primary care doctor on for blood tests. No fevers, sweats, chills, shortness of breath at rest, weakness in any of his extremities, numbness or tingling. Patient has baseline word finding difficulty from previous MCA strokes but no physical symptoms according to him. No recent long trips, previous pulmonary embolus, or active chest pain. REVIEW OF SYSTEMS: 10 systems reviewed and otherwise unrema rkable except for those noted in HPI. PHYSCIAL EXAM: Triage vital signs reviewed Gen: A&O NAD, elderly, cachectic, sarcopenia HEENT: NCAT, EOMI, not icteric. External ears normal. No rhinorrhea. Moist mucous membranes. Neck: Supple, full range of motion, no observable masses, No meningeal sign. Lungs: No Respiratory distress. No conversational dyspnea CV: RRR, no edema. Abdomen: Soft, nondistended, No rebound tenderness. MSK: No joint swelling, no redness. Strength intact in bilateral upper and lower extremities able to range both against resistance. Skin: No rashes, petechiae, lesions. Normal color per patient. Neuro: Normal Gait, Grossly intact. Freely moving all extremities, extraocular movements fully intact, sensation globally intact, strength globally intact. Psych: Appropriate for situation. PROCEDURES: EKG: Rate: Normal Rhythm: Sinus [place]: Normal variant Intervals: Normal Ischemia: No STEMI criteria Related Data Home Medications ?Medication ?Instructions ?Recorded ?Confirmed multivitamin 1 tab PO QAM 02/21/20 aspirin 81 mg tablet,delayed 81 mg PO DAILY 06/11/20 0 09/11/24 release amlodipine 5 mg tablet 5 mg PO DAILY 04/05/2409/11 Previous Rx's ?Medication ?Instructions ?Recorded sildenafil 100 mg tablet (Viagra) 100 mg PO DAILY PRN sexual 03/16/24 activity #30 tabs omeprazole 20 mg capsule,delayed See Rx Instructions . Route 03/30/24 release .COMPLEX #60 caps losartan 50 mg tablet 25 mg (1/2 x 50 mg) PO DAILY #90 04/05/24 tabs tramadol 50 mg tablet 50 mg PO Q8H PRN pain #60 ta bs 04/17/24 silodosin 8 mg capsule 8 mg PO DAILY #30 caps 07/12 clonazepam 0.5 mg tablet 0.5 mg PO TID PRN anxiety #9 0 tabs 08/20/24 Allergies Allergy/AdvReac Type Severity Reaction Status Date / Time Fzggnko-OHO-CnV Reductase AdvReac Intermediate Unknown Verified 03/05/24 15:23 Inhibitor PFSH ED 2 PFSH: Medical History (Updated 09/15/24 @ 23:27 by Benedict Gregory MD) Depression History of nonmelanoma skin cancer Acute gastroenteritis Resolved UTI (urinary tract infection) Resolved Stenosis of ureteropelvic junction (UPJ) Nephrolithiasis Acute kidney injury Improving Mucosal abnormality of stomach Enteritis Arthritis Incomplete tear of left rotator cuff History of stroke History of cataract Cystitis Small bowel obstruction Resolved Hypertension Surgical History History of arthroscopic surgery of shoulder History of femoral hernia repair History of vasectomy Family History Father , AT AGE 89 Pneumonia Mother , AT AGE 62 Suicide Other No significant family history Social History Smoking and tobacco/nicotine status: never used tobacco/nicotine Alcohol intake: never Substance/Drug Use: never Lives independently: Yes Marital status: Current occupational status: retired Course 2 Vital Signs: Vital signs: Vital Signs Temperature 98.2 F 09/15/24 19:32 Pulse Rate 71 09/15/24 20:02 Respiratory Rate 15 09/15/24 20:02 Blood Pressure 112/88 09/15/24 20:02 Pulse Oximetry 92 09/15/24 20:02 Oxygen Delivery Me thod Room Air 09/15/24 20:02 MDM - Altered Mental Status Medical Decision Making MEDICAL DECISION MAKING: Differential diagnoses considered but not limited to: Atypical ACS, pulmonary embolus, COPD, pneumothorax, pneumonia, other sources of infection, thyroid abnormality, electrolyte derangement, intermittent dysrhythmia. Vitals nonactionable. Given history, examination, and pretest risk factors, patient without emergent pathology today. EKG nonactionable nonischemic with negative troponin. Chest x-ray negative. CT chest negative. Other laboratory workup and positional vital signs negative for acute pathology. Advise follow-up with PCM and return for any worsening symptoms. DISPO: BETSY Gregory MD Staff physician, [facility] [place] emergency department [phone] Lab Data 09/15/24 19:48 09/15/24 19:48 Radiology Impressions Chest X-Ray 09/15/24 19:21 IMPRESSION: No acute findings. Chest CTA 09/15/24 22:21 IMPRESSION: 1. No pulmonary emboli. 2. Mild bilateral dependent subpleural reticulation and heterogeneous ground-glass opacification likely represents gravitational atelectasis, infiltrate not entirely excluded. 3. 4 cm ascending aortic ectasia. 4. Additional chronic and incidental findings as above. Laboratory Results WBC 4.96 10^3/uL (3.29-11.43) 09/15/24 19:48 RBC 4.87 10^6/uL (3.85-5.65) 09/15/24 19:48 Hgb 15.70 g/dL (11.27-16.99) 09/15/24 19:48 Hct 45.0 % (37-53) 09/15/24 19:48 MCV 92.4 fl (82-101) 09/15/24 19:48 MCH 32.2 pg (27-33) 09/15/24 19:48 MCHC 34.9 g/dL (30-55) 09/15/24 19:48 RDW 12.7 % (12.1-15.1) 09/15/24 19:48 Plt Count 141 10^3/cmm (157-399) L 09/15/24 19:48 MPV 9.9 fL (7.4-10.4) 09/15/24 19:48 Neut % (Auto) 72.0 % 09/15/24 19:48 Lymph % (Auto) 14.9 % 09/15/24 19:48 [place] % (Auto) 9.7 % 09/15/24 19:48 Eos % (Auto) 2.2 % 09/15/24 19:48 Baso % (Auto) 1.0 % 09/15/24 19:48 Neut # (Auto) 3.57 10^3/uL (1.8-7.7) 09/15/24 19:48 Lymph # (Auto) 0.7 10^3/uL (0.8-4.8) L 09/15/24 19:48 [place] # (Auto) 0.5 10^3/uL (0.2-0.9) 09/15/24 19:48 Eos # (Auto) 0.1 10^3/uL (0.0-0.8) 09/15/24 19:48 Baso # (Auto) 0.1 10^3/uL (0.0-0.1) 09/15/24 19:48 Nucleated RBC % (auto) 0 % 09/15/24 19:48 Nucleated RBCs # 0.0 /100WBC 09/15/24 19:48 D-Dimer 0.65 ug/mLFEU (0-0.59) H 09/15/24 19:48 Sodium 140 mmol/L (136-145) 09/15/24 19:48 Potassium 4.0 mmol/L (3.5-5.1) 09/15/24 19:48 Chloride 105 mmol/L (98-107) 09/15/24 19:48 Carbon Dioxide 25 mmol/L (22-29) 09/15/24 19:48 Anion Gap 14.0 (5-19) 09/15/24 19:48 BUN 20 mg/dL (8-23) 09/15/24 19:48 Creatinine 1.2 mg/dL (0.7-1.2) 09/15/24 19:48 GFR Calculation Not Reportable 09/15/24 19:48 Glucose 102 mg/dL (65-115) 09/15/24 19:48 Calculated Osmolality 293 mOsm/kg (285-295) 09/15/24 19:48 Calcium 9.5 mg/dL (8.5-10.5) 09/15/24 19:48 Total Bilirubin 0.6 mg/dL (0.15-1.2) 09/15/24 19:48 AST 27 U/L (0-40) 09/15/24 19:48 ALT 32 U/L (0-41) 09/15/24 19:48 Alkaline Phosphatase 140 U/L (40-130) H 09/15/24 19:48 Troponin T Baseline 18 ng/L (0-15) H 09/15/24 19:48 Troponin T 120 Minute 16.03 ng/L (0-15) H 09/15/24 21:47 Delta Troponin T -1.97 ABS# (0-10) L 09/15/24 21:47 Total Protein 6.5 g/dL (6.6-8.7) L 09/15/24 19:48 Albumin 4.4 g/dL (3.5-5.2) 09/15/24 19:48 Globulin 2.1 g/dL (1.3-4.6) 09/15/24 19:48 TSH 2.20 uIU/mL (0.27-4.20) 09/15/24 19:48 All radiology interpretation(s) finalized by discharge Discharge Plan Discharge Patient Disposition: Home Clinical Impression: Fatigue Condition: Stable Prescriptions: No Action amlodipine 5 mg tablet 5 mg PO DAILY losartan 50 mg tablet 25 mg PO DAILY Qty: 90 3RF sildenafil [Viagra] 100 mg tablet 100 mg PO DAILY PRN (Reason: sexual activity) Qty: 30 4RF Rx Instructions: administer 30 minutes to 4 hours before activity. Can initiate at 1/2 tablet omeprazole 20 mg capsule,delayed release(DR/EC) See Rx Instructions .ROUTE .COMPLEX Qty: 60 11RF Dose Instruction: Take 1 capsule by mouth twice daily Rx Instructions: Take 1 capsule by mouth twice daily tramadol 50 mg tablet 50 mg PO Q8H PRN (Reason: pain) Qty: 60 5RF silodosin 8 mg capsule 8 mg PO DAILY Qty: 30 5RF clonazepam 0.5 mg tablet 0.5 mg PO TID PRN (Reason: anxiety) Qty: 90 3RF Rx Instructions: . multivitamin Tablet 1 tab PO QAM aspirin 81 mg tablet,delayed release (DR/EC) 81 mg PO DAILY Discharge Orders: Discharge ED (Routine); Ordered 09/15/24 Ordered By: Benedict Gregory Referrals: Art Love MD [Primary Care Provider, [facility]] Discharge Diet: Advance as tolerated Discharge Activity: Resume usual activity Patient Instructions: Opioid Safety, Pain Management, Patient Portal & José Instructions Activity Restrictions/Additional Instructions: It has been a pleasure caring for you in the emergency department. Please ensure that you follow-up with your primary care physician for review of all data obtained during this encounter including any incidental findings and laboratory values. Keep in mind that if your condition worsens in any way, I strongly recommend that you return to the emergency department for repeat evaluation immediately. Print Language: Portuguese Coding Level of Care Code ED Customer Data Technician for Jordan Lucero
--- OUTSIDE RECORDS SUMMARY | 2024-09-15 19:11 | XMS_ITS | Encounter Summary ---
Author Organization [email or web address] [facility] Address [address] [place] [address] Care Team Providers Care Storage Garage Manager Name Role Phone Sandra Alba MD Primary Care Provider [phone] Encounter Details Date Type Department Care Team (Latest Contact Info) Description 03/06/2001 Outpatient Historical [facility] Imer Sanchez Jr., MD [address] [place] [id number] HYPERTENSION NOS (Primary Dx); HYPERLIPIDEMIA NEC/NOS Social History Tobacco Use Types Packs/Day Years Used Date Smoking Tobacco: Never Assessed Sex and Gender Information Value Date Recorded Sex Assigned at Not on file 

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
--- OUTSIDE RECORDS SUMMARY | 2024-09-15 19:11 | XMS_ITS | Encounter Summary ---
Author Organization [employer] [facility] Address [address] [place] [address] Care Team Providers Care Project Drilling Engineer Name Role Phone Sandra Alba MD Primary Care Provider [phone] Encounter Details Date Type Department Care Team (Latest Contact Info) Description 01/19/2001 Outpatient Historical [facility] Imer Sanchez Jr., MD [address] [place] [id number] HYPERTENSION NOS (Primary Dx); Routine medical exam Social History Tobacco Use Types Packs/Day Years Used Date Smoking Tobacco: Never Assessed Sex and Gender Information Value Date Recorded Sex Assigned at Not on file 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
--- OUTSIDE RECORDS SUMMARY | 2024-09-15 19:11 | XMS_ITS | Encounter Summary ---
Author Organization [email or web address] [facility] Address [address] [place] [address] Care Team Providers Care Web Services Manager Name Role Phone Sandra Alba MD Primary Care Provider [phone] Encounter Details Date Type Department Care Team (Latest Contact Info) Description 12/03/1998 Outpatient Historical [facility] Imer Sanchez Jr., MD [address] [place] [id number] Esophageal reflux (Primary Dx); Unspecified disorder of skin and subcutaneous tissue Social History Tobacco Use Types Packs/Day Years Used Date Smoking Tobacco: Never Assessed Sex and Gender Information Value Date Recorded Sex Assigned at Not on file 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
--- OUTSIDE RECORDS SUMMARY | 2024-09-15 19:11 | XMS_ITS | Clinical Summary ---
Author Organization [facility] Address [address] [place] [address] Care Team Providers Care Machine Folder Name Role Phone Sandra Alba MD Primary Care Provider [phone] Allergies No known active allergies Medications citalopram (CELEXA) 20 mg Oral TabIndications:N alana pain Take 20 mg by mouth daily at bedtime. Active lisinopril (PRINIVIL) 10 mg Oral TabIndications:N alana pain Take 10 mg by mouth daily. Active RED YEAST RICE EXTRACT POIndications:Ne ck pain Take by mouth. Active Mv,Ca,Iron,Min-F A-Phytosterol (CENTRUM CARDIO) 3-200-400 mg-mcg-mg Oral TabIndications:N alana pain Take by mouth. Active aspirin (ECOTRIN EC) 162 mg Oral TbECIndications: Neck pain Take 81 mg by mouth daily. 2 daily Active Cod Liver Oil Oral CapIndications:N alana pain Take by mouth. Active MULTIVITAMINS W-MINERALS (IRAM MULTIPLE/CHELATE D MINERAL PO)Indications:N alana pain Take by mouth. Active ibuprofen (MOTRIN) 200 mg Oral CapIndications:N alana pain Take by mouth. 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 Gender Identity Not on file Sexual Orientation Not on file Last Filed Vital Signs Vital Sign Reading Time Taken Comments Blood Pressure 128/87 11/01/2008 11:28 AM CDT Pulse 64 11/01/2008 11:28 AM CDT Temperature 36.4 C (97.6 F) 11/01/2008 11:28 AM CDT Respiratory Rate 12 11/01/2008 11:28 AM CDT Oxygen Saturation 96% 11/01/2008 11:28 AM CDT Inhaled Oxygen Concentration - - Weight 93 kg (205 lb) 11/01/2008 11:28 AM CDT Height 177.8 cm (5' 10 ) 11/01/2008 11:28 AM CDT Body Mass Index 29.41 11/01/2008 11:28 AM CDT Plan of Treatment Health Maintenance Due Date Last Done Comments DTAP/TDAP/TD VACCINES (1 - Tdap) 1968 COLORECTAL SCREENING 1994 Colorectal Cancer Screening 1994 FIT-DNA Q 3 years 1994 FIT/FOBT Q 1 year 1994 Flex Sig/CT Colonography Q 5 years 1994 PNEUMOCOCCAL VACCINE 50+ YEARS (1 of 1 - PCV) 07/25/19 00 ZOSTER VACCINE (1 of 2) 07/25/1999 RSV VACCINE (60+ or ) (1 - 1-dose 75+ series) 2024 INFLUENZA VACCINE (#1) 2024 Insurance [employer] PPO Care Teams Machine Folder Relationship Specialty Start Date End Date Sandra Alba MD PCP - General 11/01/08
--- OUTSIDE RECORDS SUMMARY | 2024-09-15 19:11 | XMS_ITS | Clinical Summary ---
Author Organization [facility] Address [address] Attn: [place] [address] Care Team Providers Care Lumber Driver Name Role Phone Sandra Alba MD Primary Care Provider [phone] Allergies No known active allergies Encounters Date Type Department Care Team Description 07/05/2024 Abstract ST[facility] ABSTRACTION Provider, Abstract from Last 3 Months Family History Medical History Relation Name Comments Colon Cancer Father Relation Name Status Comments Father Social History Tobacco Use Types Packs/Day Years Used Date Smoking Tobacco: Never Alcohol Use Standard Drinks/Week Comments No 0 (1 standard drink = 0.6 oz pur e alcohol) Sex and Gender Information Value Date Recorded Sex Assigned at Not on file Legal Sex Male 11:17 AM PATHOLOGY TECHNOLOGIST Gender Identity Not on file Sexual Orientation Not on file Plan of Treatment Health Maintenance Due Date [...] 75+ series) 2024 INFLUENZA VACCINE (#1) 2024 Care Teams Lumber Driver Relationship Specialty Start Date End Date Sandra Alba MD [address] [place] [phone] PCP - General 11/01/08
--- OUTSIDE RECORDS SUMMARY | 2024-09-15 19:11 | XMS_ITS | Patient Health Record ---
Author Organization [facility] Address [address] [place] [address] Care Team Providers Care Tire Spotter Name Role Phone Art Love Primary Care Provider UnavailKassy Giles Unavailable Art Fields Unavailable [phone] Allergies No Known Allergies Results Component Value Reference Range Notes UA Without Micro-[place], [place] - [id number] Reviewed date:05/22/2024 01:51:34 PM Interpretation: Performing Lab: Notes/Report: Glucose 0 Bili 0 Ketones 0 Sp Sugar Tree 1.015 Blood 0 pH 5.5 Protein 0 Urobili 0 Nitrites 0 Leukocytes 2+ CT Abdomen, Pelvis w/ Contra -[id number] Reviewed date:08/23/2024 04:04:12 PM Interpretation: Performing Lab: Notes/Report: [id number] Culture Urine [id number] Reviewed date:05/24/2024 06:26:19 AM Interpretation: Performing Lab: Notes/Report: Culture Urine TRUPTI Pantoja Culture Urine t: Culture Urine Culture Urine [facility] [id number] Culture Urine n: Culture Urine Microbiology Culture Urine PROCEDURE: Culture U rine [O1] Culture Urine SOURCE: Urine BODY SITE: Culture Urine COLLECTED DATE/TIME: 05/22/2024 14:21 CDT RECEIVED DATE/TIME: 05/22/2024 20:57 CDT Culture Urine START DATE/TIME: 05/22/2024 20:58 CDT FREE TEXT SOURCE: Culture Urine FINAL REPORT Culture Urine Final Report [] Culture Urine Verified Date/Time: 05/24/2024 06:22 CDT Culture Urine No growth at 48 hours Culture Urine Order Comments Culture Urine O1: Culture Urine (Culture Urine [id number]) Culture Urine Diagnosis Descriptio n: Unspecified abnormal findings in urine UA Without Micro-Auto, [facility] [place] - [id number] Reviewed date:12/20/2023 11:16:07 AM Interpretation: Performing Lab: Notes/Report: Glucose - Bili - Ketones - Sp Sugar Tree 1.015 Blood - pH 6.0 Protein +- Urobili - Nitrites - Leukocytes 3+ Culture Urine [id number] Reviewed date:04/12/2024 07:34:24 AM Interpretation: Performing Lab: Notes/Report: Culture Urine TRUPTI Pantoja Culture Urine t: Culture Urine Culture Urine [facility] [id number] Culture Urine n: Culture Urine Microbiology Culture Urine PROCEDURE: Culture U rine [O1] Culture Urine SOURCE: Urine BODY SITE: Culture Urine COLLECTED DATE/TIME: 04/10/2024 15:41 GETTER WELDER RECEIVED DATE/TIME: 04/10/2024 20:10 GETTER WELDER Culture Urine START DATE/TIME: 04/10/2024 20:10 GETTER WELDER FREE TEXT SOURCE: Culture Urine FINAL REPORT Culture Urine Final Report [] Culture Urine Verified Date/Time: 04/12/2024 05:53 GETTER WELDER Culture Urine > 10,000 cfu/ml mixe d superficial ang Culture Urine Multiple microorgani sms present Culture Urine Probable contamination Culture Urine Order Comments Culture Urine O1: Culture Urine (Culture Urine [id number]) Culture Urine Diagnosis Descriptio n: Unspecified abnormal findings in urine UA Without Micro-Auto, [facility] [place] - [id number] Reviewed date:04/10/2024 02:38:27 PM Interpretation: Performing Lab: Notes/Report: Glucose 0 Bili 0 Ketones 0 Sp Sugar Tree 1.015 Blood 0 pH 6.0 Protein 0 Urobili 0 Nitrites 0 Leukocytes 3+ UA Without Micro-Auto, [facility] [place] - [id number] Reviewed date:07/17/2024 01:46:18 PM Interpretation: Performing Lab: Notes/Report: Glucose 0 Bili 0 Ketones 0 Sp Sugar Tree 1.020 Blood 0 pH 6.0 Protein 0 Urobili 0 Nitrites 0 Leukocytes 2+ CT Abdomen, Pelvis w/ Contra st-[id number] Reviewed date:08/23/2024 03:46:46 PM Interpretation: Performing Lab: Notes/Report: See Below For Report CT Abdomen, Pelvis w/ Contrast Read See Below For Report Creat Proc NC--NO PCT Reviewed date:08/24/2024 07:17:17 PM Interpretation: Performing Lab: Notes/Report: Creat 1.05 .57-1.17 MG/DL N-pownfc-g-benzoquinone imine (NAPQI) is a metabolite of acetaminophen, NAPQI concentrations of apparoximately 10 mg/L correlation to toxic levels of acetaminophen demonstrates a greater than or equil to 10% change in results. NAPQI concentrations greater than this may lead to falsely depressed results for patient samples. Use of this assay is not recommended for patients undergoing treatment with phenindione, due to the potential for falsely depressed results. Bun Proc NC--NO CPT Reviewed date:08/24/2024 07:17:13 PM Interpretation: Performing Lab: Notes/Report: BUN 16 7-21 MG/DL Reason For Referral No Information Medications Medication SIG (Take, Route, Frequency, Duration) Notes Start Date End Date Status Aspirin 81 81 MG Tablet Delayed Release Oral 04/27/2023 Active traMADol HCl 50 MG Tablet TAKE 1 TABLET BY MOUTH EVERY 8 HOURS NEEDED FOR PAIN Oral; Duration: 20 Days Active Silodosin 8 MG Capsule 1 capsule by mouth daily; Duration: 90 days 07/11/2024 Active DULoxetine HCl 20 MG Capsule Delayed Release Particles TAKE 1 CAPSULE BY MOUTH DAILY Oral; Duration: 30 Days Not-Taking clonazePAM 0.5 MG Tablet Oral; Duration: 30 Days Active cholecalciferol 0.01 MG Oral Capsule ORAL *Reorder from [employer] for eRx and Interaction Alerts* 04/27/2023 Active Losartan Potassium 50 MG Tablet TAKE 1 TABLET BY MOUTH DAILY Oral; Duration: 85 Days Active Social History Tobacco Use: Social History Observation Description Date Details (start date - stop date) Never Smoker NA - NA Social History Drugs/Alcohol: Social Info Question Answer Notes Caffeine Intake: 1-2 cups per day Tobacco Use: Social Info Question Answer Notes Tobacco Control (Standard) Tobacco use: Nonsmoker Additional Details Category Social Info Options Details Drugs/Alcohol: Do you drink alcohol? No Migrated Social History Migrated Social History History of tobacco use : , Smoking Status : Never used tobacco Problems Problem Type SNOMED Code ICD Code Onset Dates Problem Status W/U Status Risk Notes Problem Incomplete emptying of bladder (710638347) Feeling of incomplete bladder emptying (R39.14) Active confirmed Problem Raised prostate specific antigen (591971985) Rising PSA following treatment for malignant neoplasm of prostate (R97.21) Active confirmed Problem Elevated PSA (899838909) Elevated PSA (R97.20) Active confirmed Problem History of malignant neoplasm of prostate (738528088) History of prostate cancer (Z85.46) Active confirmed Problem Evaluation of test results (procedure) (454027091) Encounter to discuss test results (Z71.2) Active confirmed Problem Recurrent prostate cancer (C61) Active confirmed Problem 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 Vital Signs Heart Rate 73 /min 07/17/2024 Temperature 98.42 degrees Fahrenheit 07/17/2024 Blood pressure diastolic 87 mm Hg 07/17/2024 Height-cm 180.34 cm 07/17/2024 Weight-kg 84.1 kg 07/17/2024 Height 71.00 in 07/17/2024 Blood pressure systolic 130 mm Hg 07/17/2024 Weight 185.4 lbs 07/17/2024 BMI 25.86 kg/m2 07/17/2024 Procedures Procedure Date Ordered Date Performed Result Body Sit e PVR (Post Void Residual) 12/20/2023 12/20/2023 N/A PVR (Post Void Residual) 05/22/2024 05/22/2024 N/A PVR (Post Void Residual) 07/17/2024 07/17/2024 N/A Encounters Encounter Location Date Provider Diagnosis [facility] [address] [place] [address] Dr Larsen [address] [place] [address], [place] [address] 05/22/2024 Kassy Del Cid History of prostate cancer Z85.46 ; Rising PSA following treatment for malignant neoplasm of prostate R97.21 ; Feeling of incomplete bladder emptying R39.14 and Unspecified abnormal findings in urine R82.90 [facility] [address] [place] [address] [place] [address] 04/10/2024 Kassy Del Cid History of prostate cancer Z85.46 ; Elevated PSA R97.20 and Feeling of incomplete bladder emptying R39.14 [facility] [address] [place] [address] 12/20/2023 Art Fields History of prostate cancer Z85.46 ; Lower urinary tract symptoms (LUTS) R39.9 and Feeling of incomplete bladder emptying R39.14 [facility] [address] [place] [address] Dr [address] [place] [address] 07/17/2024 Kassy Del Cid Recurrent prostate cancer C61 ; Malignant neoplasm metastatic to intrapelvic lymph node C77.5 and Encounter to discuss test results Z71.2 [facility] [address] [place] [address] Dr [address] [place] [address] 05/22/2024 Art Fields Elevated PSA R97.20 [facility] [address] [place] [address] Dr [address] [place] [address] 05/21/2024 Art Fields [facility] [address] [place] [address] Dr [address] [place] [address] 04/10/2024 Kassy Del Cid Unspecified abnormal findings in urine R82.90 [facility] [address] [place] [address] Dr [address] [place] [address] 04/10/2024 Art Fields Elevated PSA R97.20 and History of prostate cancer Z85.46 [facility] [address] [place] [address] Dr [address] [place] [address] 12/20/2023 Art Fields Elevated PSA R97.20 [facility] [address] [place] [address] Dr [address] [place] [address] 12/19/2023 Art Fields [facility] [address] [place] [address] Dr [address] [place] [address] 12/07/2023 Art Fields Elevated PSA R97.20 [facility] [address] [place] [address] Dr [address] [place] [address] 12/07/2023 Art Fields Encounter for screening for malignant neoplasm of prostate Z12.5 [facility] [address] [place] [address] Dr [address] [place] [address] 09/03/2024 Art Fields [facility] [address] [place] [address] 07/27/2024 Art Fields Recurrent prostate cancer C61 [facility] [address] [place] [address] 07/17/2024 Art Valadezsay [facility] [address] [place] [address] 07/11/2024 Art Valadezsay [facility] [address] [place] [address] 06/21/2024 Art Valadezsay [facility] [address] [place] [address] 05/29/2024 Art Valadezsay [facility] [address] [place] [address] 05/25/2024 Kassy Del Cid Assessments Encounter Date Diagnosis (ICD Code) Assessment Notes Treatment Notes Treatment Clinical Notes Section Notes 12/20/2023 History of prostate cancer (ICD-10 - Z85.46) 12/20/2023 Lower urinary tract symptoms (LUTS) (ICD-10 - R39.9) 12/20/2023 Elevated PSA (ICD-10 - R97.20) 04/10/2024 Elevated PSA (ICD-10 - R97.20) PLAN - PATIENT WILL REPEAT PSA IN 6 WEEKS AND HAVE CRISTIAN, IF PSA IS STILL ELEVATED WILL DISCUSS WITH DR. FIELDS ABOUT POSSIBLE PSMA 04/10/2024 History of prostate cancer (ICD-10 - Z85.46) PLAN - PATIENT WILL REPEAT PSA IN 6 WEEKS AND HAVE CRISTIAN, IF PSA IS STILL ELEVATED WILL DISCUSS WITH DR. FIELDS ABOUT POSSIBLE PSMA 04/10/2024 Elevated PSA (ICD-10 - R97.20) 12/07/2023 Encounter for screening for malignant neoplasm of prostate (ICD-10 - Z12.5) 12/07/2023 Elevated PSA (ICD-10 - R97.20) 04/10/2024 Unspecified abnormal findings in urine (ICD-10 - R82.90) 05/22/2024 Rising PSA following treatment for malignant neoplasm of prostate (ICD-10 - R97.21) PATIENT IS HAVING INCREASING PSA OVER THE LAST SEVERAL MONTHS, NO ANDROGEN ABLATION AT THIS TIME. WILL ORDER PSMA, START ON ANDROGEN ABLATION AFTER TALKING TO DR. 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 There is a 5.8 mm node just anterior to the distal left external iliac vasculature that had increased activity suspicious for early jac metastasis. 07/27/2024 Recurrent prostate cancer (ICD-10 - C61) 07/17/2024 Encounter to discuss test results (ICD-10 - Z71.2) PATIENT AND HIS WERE EXPLAINED FINDINGS OF THE PSMA. 05/22/2024 Feeling of incomplete bladder emptying (ICD-10 - R39.14) PATIENT CURRENTLY ON SILODOSIN FOR LUTS, WILL CONTINUE THIS MEDICATION TO HELP WITH FEELING OF INCOMPLETE BLADDER EMPTYING. 12/20/2023 Feeling of incomplete bladder emptying (ICD-10 - R39.14) 04/10/2024 History of prostate cancer (ICD-10 - Z85.46) 04/10/2024 Feeling of incomplete bladder emptying (ICD-10 - R39.14) PATIENT IS URINATING OK FOR NOW, DOES HAVE POSITIVE LEUKS, WILL SEND FOR CULTURE 05/22/2024 Unspecified abnormal findings in urine (ICD-10 - R82.90) 12/20/2023 Other continue silodosin 8mg See Nurse practitioner in 3 months with PSA. 04/10/2024 Other FOLLOW UP IN 6 WEEKS WITH UA, PVR, PSA 05/22/2024 Other PATIENT WILL FOLLOW UP IN 8 WEEKS FOR REPEAT PSA, UA, PVR 07/17/2024 Other REFERRAL - ONCOLOGY - ALREADY SEE SOMEONE IN [place] OFFERED ANDROGEN ABLATION - DECLINED. STARTING RADIATION ON THE ? ORDER CT ABDOMEN PELVIS WITH CONTRAST, UA, PVR, WILL CALL TO SCHEDULE APPT WHEN THEY HAVE DATE FOR CT. SCHEDULE WITH DR. FIELDS, PER DR. FIELDS Plan Of Treatment Pending Test Test Name Order Date Blood Urea Nitrogen (BUN) 21054 07/28/19 25 Creatinine (B) 40475 07/27/2024 PSA Diagnostic--66132 12/07/2023 PSA Diagnostic--64942 12/07/2023 PSA Diagnostic--47055 05/22/2024 Future Test Test Name Order Date PSA Diagnostic--[id number] 02/15/2024 PSA Diagnostic--[id number] 05/01/2024 Next Appt Details Provider Name:Art marmolejo, 10/02/2024 01:40:00 PM, [address] [place] [address], [place], [address], Insurance Providers Payer Name Payer Address Payer Phone Subscriber Number Group Number Insured Name Patient Relationship to Insured Coverage Start Date Coverage End Date [place] [address] [place] [address] [phone] [id number] TRUPTI GOODMAN Self - patient is the insured [employer] [address] [address] [place] [address] [phone] [id number] TRUPTI GOODMAN Self - patient is the insured Medical (General) History Medical History History ICD Code HTN Stroke Anxiety Prostate Cancer Surgical History Surgery Date(Month/Year) Left arm surgery Hernia surgery x 2 Vasectomy Prostate Biopsy
--- NOTE | 2024-09-15 19:21 | XRR_ITS ---
PROCEDURE INFORMATION: Exam: XR Chest Exam date and time: 09/15/2024 7:29 PM Age: 74 years old Clinical indication: Shortness of breath; C/O SOB TECHNIQUE: Imaging protocol: Radiologic exam of the chest. Views: 2 views. COMPARISON: CR XR chest 1V portable [id number] 03/05/2024 3:44 PM FINDINGS: Lungs: Mild left basilar linear atelectasis versus scarring. No consolidation. Pleural spaces: Unremarkable. No pleural effusion. No pneumothorax. Heart/Mediastinum: Unremarkable. No cardiomegaly. Bones/joints: Degenerative change along the spine. XR/XR chest 2V* [id number] IMPRESSION: No acute findings.
--- NOTE | 2024-09-15 19:51 | ECG_ITS ---
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: : 1950 Requested By: Benedict Gregory Order Number: [id number] Jensen MD: ZIYAD LOPEZ Measurements Intervals Vest Rate: 83 P: 55 LA: 197 QRS: -35 QRSD: 106 T: 48 QT: 373 QTc: 439 Interpretive Statements SINUS RHYTHM LEFT AXIS DEVIATION [QRS AXIS < -30] LOW QRS VOLTAGE IN PRECORDIAL LEADS [QRS DEFLECTION < 1.0 mV IN CHEST LEADS] Compared to ECG 03/05/2024 15:41:12 Sinus bradycardia no longer present Intraventricular conduction delay no longer present Electronically Signed On 09-17-2024 13:57:37 CDT by ZIYAD LOPEZ [email or web address]
[2024-09-15 19:56] LABS: Hematocrit 45.0 % (37-53); Hemoglobin 15.70 g/dL (11.27-16.99); Mean Corpuscular HGB Conc 34.9 g/dL (30-55); Mean Corpuscular Hemoglobin 32.2 pg (27-33); Mean Corpuscular Volume 92.4 fl (82-101); Nucleated Red Blood Cells % 0 %; Platelet Count 141 10^3/cmm (157-399); Red Blood Count 4.87 10^6/uL (3.85-5.65); White Blood Count 4.96 10^3/uL (3.29-11.43)
[2024-09-15 20:14] LABS: Troponin(5th) Baseline 18 ng/L (0-15)
[2024-09-15 20:37] LABS: Alanine Aminotransferase 32 U/L (0-41); Albumin Level 4.4 g/dL (3.5-5.2); Alkaline Phosphatase 140 U/L (40-130); Anion Gap 14.0 (5-19); Aspartate Amino Transferase 27 U/L (0-40); Blood Urea Nitrogen 20 mg/dL (8-23); Calcium 9.5 mg/dL (8.5-10.5); Carbon Dioxide 25 mmol/L (22-29); Chloride 105 mmol/L (98-107); Creatinine Clr Calc Pharmacy 59.2418; Globulin 2.1 g/dL (1.3-4.6); Glucose 102 mg/dL (65-115); Osmolality Calculated 293 mOsm/kg (285-295); Potassium 4.0 mmol/L (3.5-5.1); Sodium 140 mmol/L (136-145); Thyroid Stimulating Hormone 2.20 uIU/mL (0.27-4.20); Total Protein 6.5 g/dL (6.6-8.7)
[2024-09-15 22:20] LABS: Troponin 5 2HR 16.03 ng/L (0-15)
[2024-09-15 22:21] LABS: Troponin 5 2HR Delta -1.97 ABS# (0-10)
--- NOTE | 2024-09-15 22:21 | CTR_ITS ---
PROCEDURE INFORMATION: Exam: CTA Chest With Contrast Exam date and time: 09/15/2024 10:58 PM Age: 74 years old Clinical indication: Abnormal findings; Abnormal diagnostic tests; Elevated d-dimer; Shortness of breath; C/O SOB. Dimer 0.65. ; Additional info: SOB, eval pe TECHNIQUE: Imaging protocol: Computed tomographic angiography of the chest with contrast. Exam focused on the arteries. 3D rendering (Not supervised by radiologist): MIP and/or 3D reconstructed images were created by the technologist. Radiation optimization: All CT scans at this facility use at least one of these dose optimization techniques: automated exposure control; mA and/or kV adjustment per patient size (includes targeted exams where dose is matched to clinical indication); or iterative reconstruction. Contrast material: OMNI 350; Contrast volume: 77 ml; Contrast route: INTRAVENOUS (IV); COMPARISON: CR (CHEST, ) 09/15/2024 7:29 PM RADIATION DOSE METRICS: Total DLP (mGy-cm): 353.03 FINDINGS: Pulmonary arteries: Normal. No pulmonary emboli. Aorta: Mild systemic atherosclerosis with ascending aortic ectasia measuring 4 cm. Contrast bolus not timed to evaluate the systemic arterial bed. Trachea: Subcentimeter posterolateral right tracheal diverticulum on axial image 82 of series 6. Lungs: Mild bilateral dependent subpleural reticulation and heterogeneous ground-glass opacification. No consolidation or mass. Pleural spaces: Unremarkable. No pneumothorax. No pleural effusion. Heart: Unremarkable. No cardiomegaly. No pericardial effusion. Coronary arteries: Mild coronary artery calcification. Lymph nodes: Unremarkable. No enlarged lymph nodes. Diaphragm: Small hiatal hernia. Bones/joints: No acute fracture. Multilevel flowing osteophytosis along the spine compatible with diffuse idiopathic skeletal hyperostosis. Mild degenerative change along the spine and shoulders. Soft tissues: Unremarkable. CT/CT angio chest PE protcl [id number] IMPRESSION: 1. No pulmonary emboli. 2. Mild bilateral dependent subpleural reticulation and heterogeneous ground-glass opacification likely represents gravitational atelectasis, infiltrate not entirely excluded. 3. 4 cm ascending aortic ectasia. 4. Additional chronic and incidental findings as above.
[2024-09-15] MEDS: iohexol 350 mg/mL 500 mL Btl (per mL) IV (23:00)
== END 2024-09-15 23:37 | disposition home or self-care (01) ==
PROVIDERS: Emergency Provider General Practice; PCP Family Medicine
DX: R06.02 Shortness of breath (principal); R53.83 Other fatigue; Z79.82 Long term (current) use of aspirin; I10 Essential (primary) hypertension; Z86.73 Personal history of transient ischemic attack (TIA), and cerebral infarction without residual deficits; Z85.828 Personal history of other malignant neoplasm of skin
CPT/HCPCS: 36415; 71046; 71275; 80053; 84443; 84484; 85025; 85378; 93005; 99285

== ENCOUNTER 2024-10-22 09:07 | Oncology outpatient (recurring) (ONCR) | payer MEDICARE, OTHER, SELFPAY | END 2024-11-13 23:59 | disposition home or self-care (01) | PROVIDERS: PCP Family Medicine; Visit Provider Internal Medicine Medical Oncology | DX: C61 Malignant neoplasm of prostate (principal); R03.0 Elevated blood-pressure reading, without diagnosis of hypertension; C77.5 Secondary and unspecified malignant neoplasm of intrapelvic lymph nodes; Z92.3 Personal history of irradiation | CPT/HCPCS: 99205 ==

== ENCOUNTER → 2024-12-18 09:42 | Outpatient (BNVA) | payer MEDICARE, OTHER, SELFPAY | PROVIDERS: PCP Family Medicine; Visit Provider Orthopaedic Surgery | DX: M17.12 Unilateral primary osteoarthritis, left knee (principal); G89.29 Other chronic pain | CPT/HCPCS: 99204 ==

== ENCOUNTER 2025-01-08 08:45 | Oncology outpatient (recurring) (ONCR) | payer MEDICARE, OTHER, SELFPAY ==
[2024-12-17 07:59] LABS: Hematocrit 47.3 % (37-53); Hemoglobin 16.40 g/dL (11.27-16.99); Mean Corpuscular HGB Conc 34.7 g/dL (30-55); Mean Corpuscular Hemoglobin 33.1 pg (27-33); Mean Corpuscular Volume 95.6 fl (82-101); Nucleated Red Blood Cells % 0 %; Platelet Count 147 10^3/cmm (157-399); Red Blood Count 4.95 10^6/uL (3.85-5.65); White Blood Count 4.24 10^3/uL (3.29-11.43)
[2024-12-17 08:27] LABS: Alanine Aminotransferase 24 U/L (0-41); Albumin Level 4.2 g/dL (3.5-5.2); Alkaline Phosphatase 124 U/L (40-130); Anion Gap 13.2 (5-19); Aspartate Amino Transferase 28 U/L (0-40); Blood Urea Nitrogen 14 mg/dL (8-23); Calcium 9.3 mg/dL (8.5-10.5); Carbon Dioxide 26 mmol/L (22-29); Chloride 104 mmol/L (98-107); Globulin 2.7 g/dL (1.3-4.6); Glucose 144 mg/dL (65-115); Osmolality Calculated 291 mOsm/kg (285-295); Potassium 4.2 mmol/L (3.5-5.1); Prostate Specific Antigen 2.560 ng/mL (0-4); Sodium 139 mmol/L (136-145); Total Protein 6.9 g/dL (6.6-8.7)
--- NOTE | 2025-01-08 08:45 | MR_ITS ---
WS: [id number] MRI LUMBAR SPINE NONCONTRAST TECHNIQUE: Sagittal T1, T2 and STIR imaging. Axial T1 and T2 imaging. CLINICAL INFORMATION: lumbar spine pain COMPARISON: None. FINDINGS: Mild lumbar curve. No acute compression. Slight anterolisthesis L3 on L4, L4 on L5 and L5 on S1. L1-L2: Mild annular bulging. Mild central canal stenosis. Impingement of the subarticular recess bilaterally. Moderate facet arthropathy. Mild LEFT greater than RIGHT foraminal narrowing. L2-L3: Mild central canal stenosis. Disc bulging with impingement of the traversing L3 nerve roots. Moderate facet arthropathy. Mild LEFT foraminal narrowing. L3-L4: Mild disc bulging with moderate to severe central canal stenosis. Impingement of traversing L4 nerve roots bilaterally. Moderate facet arthropathy. Moderate RIGHT and mild LEFT foraminal narrowing. L4-L5: Mild disc bulging. Impingement LEFT subarticular recess and traversing LEFT L5 nerve root. Moderate to severe LEFT foraminal narrowing. Mild RIGHT foraminal narrowing. L5-S1: Grade 1 anterolisthesis. Disc bulging with slight contact of the S1 nerve roots. Moderate facet arthropathy. Mild RIGHT foraminal narrowing. Visualized pelvic bony structures: Normal. Paravertebral soft tissues: Normal. Bilateral renal cysts partially visualized. MR/MR lumbar spine wo con* [id number] IMPRESSION: 1. Mild lumbar curve. No acute compression. Grade 1 anterolisthesis L3 on L4, L4 on L5 and L5 on S1. 2. Moderate to severe central canal stenosis L3-4 with impingement of the suba rticular recess bilaterally. Recommend spine surgery consultation 3. Disc bulging L4-5 impinges the traversing LEFT L5 nerve root in the subarti cular recess with mild central canal stenosis. 4. Moderate to severe LEFT L4-5 foraminal narrowing. 5. Moderate RIGHT L3-4 foraminal narrowing. 6. Mild central canal stenosis L1-2 and L2-3
== END 2025-01-13 23:59 | disposition home or self-care (01) ==
LOC: RAD 01-09 00:01 → ONCMED 01-09 10:29
PROVIDERS: PCP Family Medicine; Visit Provider Internal Medicine Medical Oncology
DX: M43.8X6 Other specified deforming dorsopathies, lumbar region; M54.31 Sciatica, right side; M43.16 Spondylolisthesis, lumbar region; M43.17 Spondylolisthesis, lumbosacral region; M48.061 Spinal stenosis, lumbar region without neurogenic claudication; R93.7 Abnormal findings on diagnostic imaging of other parts of musculoskeletal system; M51.369 Other intervertebral disc degeneration, lumbar region without mention of lumbar back pain or lower extremity pain; M47.896 Other spondylosis, lumbar region; M51.379 Other intervertebral disc degeneration, lumbosacral region without mention of lumbar back pain or lower extremity pain; M47.897 Other spondylosis, lumbosacral region; M48.07 Spinal stenosis, lumbosacral region; N28.1 Cyst of kidney, acquired; Z53.9 Procedure and treatment not carried out, unspecified reason
CPT/HCPCS: 36415; 72148; 80053; 84153; 85025; 99213